=== PATIENT | male | born 1935 | race Caucasian/White ===

== ENCOUNTER → 2018-02-24 | Outpatient (CLI) | payer MEDICARE, BC ==
[2018-02-24 17:13] LABS: LDL Cholesterol,Calculated 50.4 mg/dL (0.0-131.0); VLDL Calculation 24.6 mg/dL (5.00-40.00)
== END | disposition home or self-care (01) ==
LOC: LABWHC1 09:20
PROVIDERS: ATTEND Thoracic Surgery (Cardiothoracic Vascular Surgery)
DX: I25.10 Atherosclerotic heart disease of native coronary artery without angina pectoris (principal)
CPT/HCPCS: 36415; 80061

== ENCOUNTER → 2018-09-30 | Outpatient (CLI) | payer MEDICARE, BC ==
[2018-09-30 16:04] LABS: Calcium 9.9 mg/dL (8.4-10.2); Potassium 4.7 mmol/L (3.5-5.1)
[2018-09-30 16:10] LABS: Basophils # (A) 0.1 k/uL (0-0.2); Basophils % (A) 1 %; Eosinophils # (A) 0.3 k/uL (0-0.7); Eosinophils % (A) 3 %; HCT 46.9 % (39.0-53.0); HGB 15.1 gm/dL (13.0-17.5); Lymphocytes # (A) 4.3 k/uL (1.0-4.8); Lymphocytes % (A) 44 %; MCH 31.2 pg (25.0-35.0); MCHC 32.1 g/dL (31.0-37.0); MCV 97.3 fL (80.0-100.0); Mean Platelet Volume 7.1; Monocytes # (A) 0.6 k/uL (0-1.0); Monocytes % (A) 6 %; Neutrophils # (A) 4.2 k/uL (1.3-7.7); Neutrophils % (A) 43 %; Platelet Count 316 k/uL (150-450); RBC 4.82 m/uL (4.30-5.90); RDW 14.1 % (11.5-15.5); WBC 9.7 k/uL (3.8-10.6)
== END | disposition home or self-care (01) ==
LOC: LABPAT 15:07
PROVIDERS: ATTEND Anesthesiology
DX: Z01.818 Encounter for other preprocedural examination (principal); Z01.812 Encounter for preprocedural laboratory examination
CPT/HCPCS: 80048; 85025; 93005

== ENCOUNTER → 2019-07-13 | Outpatient (CLI) | payer MEDICARE, BC ==
[2019-07-13 17:43] LABS: Chol/HDL Ratio 2.9; LDL Cholesterol,Calculated 37.4 mg/dL (0.0-131.0); VLDL Calculation 21.6 mg/dL (5.00-40.00)
== END | disposition home or self-care (01) ==
LOC: LABWHC1 09:58
PROVIDERS: ATTEND Internal Medicine Cardiovascular Disease
DX: E78.2 Mixed hyperlipidemia (principal)
CPT/HCPCS: 36415; 80061; 84450; 84460

== ENCOUNTER → 2020-11-05 | Outpatient (CLI) | payer MEDICARE, BC | END | disposition home or self-care (01) | LOC: LABWHC1 14:44 | PROVIDERS: ATTEND Internal Medicine | DX: Z20.822 Contact with and (suspected) exposure to COVID-19 (principal); R09.89 Other specified symptoms and signs involving the circulatory and respiratory systems | CPT/HCPCS: U0003; C9803; U0005 ==

== ENCOUNTER → 2021-05-19 | Outpatient (CLI) | payer MEDICARE, BC ==
--- NOTE | 2021-05-20 07:32 | US ---
EXAMINATION TYPE: US carotid duplex BILAT DATE OF EXAM: 05/19/2021 COMPARISON: NONE CLINICAL HISTORY: I65.23 HARDY CAROTID ARTERY STENOSIS,[id number]. EXAM MEASUREMENTS: RIGHT: Peak Systolic Velocity (PSV) cm/sec ----- Right CCA: 71.1 ----- Right ICA: 52.8 ----- Right ECA: 129. ICA/CCA ratio: 0.73 RIGHT: End Diastole cm/sec ----- Right CCA: 6.8 ----- Right ICA: 12.9 ----- Right ECA: 6.7 LEFT: Peak Systolic Velocity (PSV) cm/sec ----- Left CCA: 63.4 ----- Left ICA: 213 ----- Left ECA: 147 ICA/CCA ratio: 3.38 LEFT: End Diastole cm/sec ----- Left CCA: 9.1 ----- Left ICA: 62.7 ----- Left ECA: 10.7 VERTEBRALS (direction of flow): Right Vertebral: Antegrade Left Vertebral: Rhythm: Normal Patient has sinewy neck with calcified vessels at bulb, technically difficult. Mild velocity increases seen on left, right shows no significant velocity increases. IMPRESSION: 1. Atheromatous plaquing present. 2. Mild stenosis between 50 and 69% left internal carotid artery. Correlate with the patient's sympto ms. Criteria for Assigning % of Stenosis / Diameter reduction (Estimation based on the indirect measurements of the internal carotid artery velocities (ICA PSV). 1. Normal (no stenosis)=ICA PSV < 125 cm/s: ratio < 2.0: ICA EDV<40 cm/s. 2. Less than 50% stenosis=ICA PSV < 125 cm/s: ratio < 2.0: ICA EDV<40 cm/s. 3. 50 to 69% stenosis=ICA PSV of 125 to 230 cm/s: ration 2.0 ? 4.0: ICA EDV 40-100 cm/s. 4. Greater than 70% stenosis to near occlusion= ICA PSV > 230 cm/s: ratio > 4.0: ICA EDV > 100 cm/s. 5. Near occlusion= ICA PSV velocities may be low or undetectable: variable ratio and ICA EDV. 6. Total occlusion=unable to detect flow.
== END | disposition home or self-care (01) ==
LOC: RADUSWWP 15:27
PROVIDERS: ATTEND Internal Medicine Cardiovascular Disease
DX: I65.22 Occlusion and stenosis of left carotid artery (principal); Z98.890 Other specified postprocedural states
CPT/HCPCS: 93880

== ENCOUNTER → 2021-06-04 | Outpatient (CLI) | payer MEDICARE, BC ==
--- NOTE | 2021-06-04 18:07 | XR ---
EXAMINATION TYPE: XR shoulder complete RT DATE OF EXAM: 06/04/2021 COMPARISON: None available INDICATION: Right shoulder pain TECHNIQUE: 2 views of the right shoulder FINDINGS: Mild degenerative changes of the acromioclavicular joint. Severe degenerative changes of the glenohum eral articulation with large osteophytosis and narrowing of the joint space. No definite acute fracture line identified. No humeral head dislocation. No signs of rotator cuff stephen cific tendinitis. Maintained acromiohumeral distance. 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
== END | disposition home or self-care (01) ==
LOC: RADXRMAIN 13:57
PROVIDERS: ATTEND Internal Medicine
DX: M19.011 Primary osteoarthritis, right shoulder (principal)

== ENCOUNTER 2021-10-26 22:47 | Inpatient (IN) | payer MEDICARE, BC ==
--- NOTE | 2021-10-26 23:28 | ED ---
Weakness HPI - General Stated complaint: Fever, weakness Time Seen by Provider: 10/26/21 23:27 - History of Present Illness Initial comments: The patient is an 86-year-old male with past history of A. fib, congestive heart failure, hyperlipidemia, hypertension presents emergency room with fever and weakness. His facility sent him and to rule out COVID-19. States that it has been running rampant in his facility. They did swab him however it was nega tive. Patient does not provide much history. States that he is in no pain and does not want to be at the hospital. Because of this the remainder of the HPI is limited - Related Data Home Medications Medication Instructions Recorded Confirmed Apixaban [Eliquis] 5 mg PO BID@0800,199910/27/21 10/27/21 Atorvastatin [Lipitor] 40 mg PO HS@199910/27/21 10/27/21 Digoxin [Lanoxin] 125 mcg PO DAILY@79910/27/21 10/27/21 Famotidine [Pepcid] 20 mg PO HS@199910/27/21 10/27/21 Furosemide [Lasix] 40 mg PO DAILY@79910/27/21 10/27/21 Metoprolol Tartrate [Lopressor] 50 mg PO BID@0800,199910/27/21 10/27/21 Omeprazole 20 mg PO DAILY@79910/27/21 10/27/21 Potassium Chloride ER [K-Dur 20] 20 meq PO DAILY@0800 10/27/21 10/27/21 Sacubitril/Valsartan [Entresto 24 1 tab PO BID@08,199910/27/21 10/27/21 mg-26 mg Tablet] Allergies Allergy/AdvReac Type Severity Reaction Status Date / Time No Known Allergies Allergy Verified 10/27/21 09:49 Review of Systems ROS Statement: Those systems with pertinent positive or pertinent negative responses have been documented in the HPI. ROS Other: All systems not noted in ROS Statement are negative. Past Medical History - Past Family History Family Family Medical History: Coronary Artery Disease (CAD) General Exam General appearance: alert, in no apparent distress Head exam: Present: atraumatic, normocephalic, normal inspection Eye exam: Present: normal appearance, PERRL, EOMI. Absent: scleral icterus, conjunctival injection, periorbital swelling ENT exam: Present: normal exam, mucous membranes moist Neck exam: Present: normal inspection. Absent: tenderness, meningismus, lymphadenopathy Respiratory exam: Present: normal lung sounds bilaterally. Absent: respiratory distress, wheezes, rales, rhonchi, stridor Cardiovascular Exam: Present: normal rhythm, bradycardia, normal heart sounds. Absent: systolic murmur, diastolic murmur, rubs, gallop, clicks GI/Abdominal exam: Present: soft, normal bowel sounds. Absent: distended, tenderness, guarding, rebound, rigid Extremities exam: Present: normal inspection, full ROM, normal capillary refill. Absent: tenderness, pedal edema, joint swelling, calf tenderness Back exam: Present: normal inspection Neurological exam: Present: alert, oriented X3, CN II-XII intact Psychiatric exam: Present: normal affect, normal mood Skin exam: Present: warm, dry, intact, normal color. Absent: rash Course Vital Signs 10/26/21 10/27/21 10/27/21 22:48 01:00 02:00 Temperature 100.6 F H 97.9 F Pulse Rate 56 L 56 L 57 L Respiratory 20 20 18 Rate Blood Pressure 111/76 111/79 105/61 O2 Sat by Pulse 93 L 94 L 93 L Oximetry 10/27/21 10/27/21 10/27/21 03:00 06:00 09:00 Temperature 98.4 F Pulse Rate 54 L 44 L 55 L Respiratory 16 18 18 Rate Blood Pressure 104/58 118/71 132/71 O2 Sat by Pulse 98 95 92 L Oximetry 10/27/21 10/27/21 13:00 14:00 Temperature Pulse Rate 61 Respiratory 18 18 Rate Blood Pressure 137/89 O2 Sat by Pulse 95 Oximetry EKG Findings - EKG Comments: EKG Findings:: EKG demonstrates A. fib with a rate of 55. QRS 88. QTC of 396. No acute ST segment elevations or depressions Medical Decision Making - Medical Decision Making Upon arrival patient is placed into room 18. A thorough history and physical exam was performed. IV access was established laboratory studies are conducted. Patient is in A. fib however he does have history of this. He was given Ty lenol prior to leaving his facility. Laboratory studies are reviewed and demonstrated a troponin of 0.094. Recommended admission in order to trend his troponins. Spoke with patient's family was agreeable - Lab Data Result diagrams: 10/28/21 09:11 10/28/21 09:11 Lab Results 10/26/21 10/26/21 10/26/21 Range/Units 23:17 23:17 23:17 WBC 7.3 (3.8-10.6) k/uL RBC 4.20 L (4.30-5.90) m/uL Hgb 13.2 (13.0-17.5) gm/dL Hct 40.8 (39.0-53.0) % MCV 97.0 (80.0-100.0) fL MCH 31.4 (25.0-35.0) pg MCHC 32.4 (31.0-37.0) g/dL RDW 12.9 (11.5-15.5) % Plt Count 196 (150-450) k/uL MPV 8.4 Neutrophils % 70 % Lymphocytes % 14 % Monocytes % 13 % Eosinophils % 0 % Basophils % 1 % Neutrophils # 5.1 (1.3-7.7) k/uL Lymphocytes # 1.1 (1.0-4.8) k/uL Monocytes # 0.9 (0-1.0) k/uL Eosinophils # 0.0 (0-0.7) k/uL Basophils # 0.1 (0-0.2) k/uL PT 12.2 H (9.0-12.0) sec INR 1.1 (<1.2) APTT 32.5 H (22.0-30.0) sec Fibrinogen (200-500) mg/dL D-Dimer (<0.60) mg/L FEU Sodium 137 (137-145) mmol/L Potassium 4.3 (3.5-5.1) mmol/L Chloride 104 (98-107) mmol/L Carbon Dioxide 21 L (22-30) mmol/L Anion Gap 12 mmol/L BUN 17 (9-20) mg/dL Creatinine 0.97 (0.66-1.25) mg/dL Est GFR (CKD-EPI)AfAm 82 (>60 ml/min/1.73 sqM) Est GFR (CKD-EPI)NonAf 71 (>60 ml/min/1.73 sqM) Glucose 100 H (74-99) mg/dL Plasma Lactic Acid Matty (0.7-2.0) mmol/L Calcium 8.9 (8.4-10.2) mg/dL Magnesium (1.6-2.3) mg/dL Ferritin (22.0-322.0) ng/mL Total Bilirubin 0.8 (0.2-1.3) mg/dL AST 42 (17-59) U/L ALT 35 (4-49) U/L Alkaline Phosphatase 89 (38-126) U/L Lactate Dehydrogenase (313-618) U/L Troponin I (0.000-0.034) ng/mL C-Reactive Protein (<1.0) mg/dL NT-Pro-B Natriuret Pep pg/mL Total Protein 6.4 (6.3-8.2) g/dL Albumin 4.0 (3.5-5.0) g/dL Procalcitonin (0.02-0.09) ng/mL Urine Color Urine Appearance (Clear) Urine pH (5.0-8.0) Ur Specific [place] (1.001-1.035) Urine Protein (Negative) Urine Glucose (UA) (Negative) Urine Ketones (Negative) Urine Blood (Negative) Urine Nitrite (Negative) Urine Bilirubin (Negative) Urine Urobilinogen (<2.0) mg/dL Ur Leukocyte Esterase (Negative) Digoxin ng/mL Coronavirus (PCR) (Not Detectd) Influenza Type A RNA (Not Detectd) Influenza Type B (PCR) (Not Detectd) RSV (PCR) (Negative) 10/26/21 10/26/21 10/26/21 Range/Units 23:17 23:17 23:17 WBC (3.8-10.6) k/uL RBC (4.30-5.90) m/uL Hgb (13.0-17.5) gm/dL Hct (39.0-53.0) % MCV (80.0-100.0) fL MCH (25.0-35.0) pg MCHC (31.0-37.0) g/dL RDW (11.5-15.5) % Plt Count (150-450) k/uL MPV Neutrophils % % Lymphocytes % % Monocytes % % Eosinophils % % Basophils % % Neutrophils # (1.3-7.7) k/uL Lymphocytes # (1.0-4.8) k/uL Monocytes # (0-1.0) k/uL Eosinophils # (0-0.7) k/uL Basophils # (0-0.2) k/uL PT (9.0-12.0) sec INR (<1.2) APTT (22.0-30.0) sec Fibrinogen (200-500) mg/dL D-Dimer (<0.60) mg/L FEU Sodium (137-145) mmol/L Potassium (3.5-5.1) mmol/L Chloride (98-107) mmol/L Carbon Dioxide (22-30) mmol/L Anion Gap mmol/L BUN (9-20) mg/dL Creatinine (0.66-1.25) mg/dL Est GFR (CKD-EPI)AfAm (>60 ml/min/1.73 sqM) Est GFR (CKD-EPI)NonAf (>60 ml/min/1.73 sqM) Glucose (74-99) mg/dL Plasma Lactic Acid Matty 1.2 (0.7-2.0) mmol/L Calcium (8.4-10.2) mg/dL Magnesium (1.6-2.3) mg/dL Ferritin (22.0-322.0) ng/mL Total Bilirubin (0.2-1.3) mg/dL AST (17-59) U/L ALT (4-49) U/L Alkaline Phosphatase (38-126) U/L Lactate Dehydrogenase (313-618) U/L Troponin I 0.094 H* (0.000-0.034) ng/mL C-Reactive Protein (<1.0) mg/dL NT-Pro-B Natriuret Pep pg/mL Total Protein (6.3-8.2) g/dL Albumin (3.5-5.0) g/dL Procalcitonin (0.02-0.09) ng/mL Urine Color Urine Appearance (Clear) Urine pH (5.0-8.0) Ur Specific [place] (1.001-1.035) Urine Protein (Negative) Urine Glucose (UA) (Negative) Urine Ketones (Negative) Urine Blood (Negative) Urine Nitrite (Negative) Urine Bilirubin (Negative) Urine Urobilinogen (<2.0) mg/dL Ur Leukocyte Esterase (Negative) Digoxin 0.8 ng/mL Coronavirus (PCR) (Not Detectd) Influenza Type A RNA (Not Detectd) Influenza Type B (PCR) (Not Detectd) RSV (PCR) (Negative) 10/26/21 10/26/21 10/27/21 Range/Units 23:17 23:43 03:07 WBC (3.8-10.6) k/uL RBC (4.30-5.90) m/uL Hgb (13.0-17.5) gm/dL Hct (39.0-53.0) % MCV (80.0-100.0) fL MCH (25.0-35.0) pg MCHC (31.0-37.0) g/dL RDW (11.5-15.5) % Plt Count (150-450) k/uL MPV Neutrophils % % Lymphocytes % % Monocytes % % Eosinophils % % Basophils % % Neutrophils # (1.3-7.7) k/uL Lymphocytes # (1.0-4.8) k/uL Monocytes # (0-1.0) k/uL Eosinophils # (0-0.7) k/uL Basophils # (0-0.2) k/uL PT (9.0-12.0) sec INR (<1.2) APTT (22.0-30.0) sec Fibrinogen (200-500) mg/dL D-Dimer (<0.60) mg/L FEU Sodium (137-145) mmol/L Potassium (3.5-5.1) mmol/L Chloride (98-107) mmol/L Carbon Dioxide (22-30) mmol/L Anion Gap mmol/L BUN (9-20) mg/dL Creatinine (0.66-1.25) mg/dL Est GFR (CKD-EPI)AfAm (>60 ml/min/1.73 sqM) Est GFR (CKD-EPI)NonAf (>60 ml/min/1.73 sqM) Glucose (74-99) mg/dL Plasma Lactic Acid Matty (0.7-2.0) mmol/L Calcium (8.4-10.2) mg/dL Magnesium (1.6-2.3) mg/dL Ferritin (22.0-322.0) ng/mL Total Bilirubin (0.2-1.3) mg/dL AST (17-59) U/L ALT (4-49) U/L Alkaline Phosphatase (38-126) U/L Lactate Dehydrogenase (313-618) U/L Troponin I 0.115 H* (0.000-0.034) ng/mL C-Reactive Protein (<1.0) mg/dL NT-Pro-B Natriuret Pep 2350 pg/mL Total Protein (6.3-8.2) g/dL Albumin (3.5-5.0) g/dL Procalcitonin (0.02-0.09) ng/mL Urine Color Urine Appearance (Clear) Urine pH (5.0-8.0) Ur Specific [place] (1.001-1.035) Urine Protein (Negative) Urine Glucose (UA) (Negative) Urine Ketones (Negative) Urine Blood (Negative) Urine Nitrite (Negative) Urine Bilirubin (Negative) Urine Urobilinogen (<2.0) mg/dL Ur Leukocyte Esterase (Negative) Digoxin ng/mL Coronavirus (PCR) Detected A (Not Detectd) Influenza Type A RNA (Not Detectd) Influenza Type B (PCR) (Not Detectd) RSV (PCR) (Negative) 10/27/21 10/27/21 10/27/21 Range/Units 04:40 04:40 04:40 WBC (3.8-10.6) k/uL RBC (4.30-5.90) m/uL Hgb (13.0-17.5) gm/dL Hct (39.0-53.0) % MCV (80.0-100.0) fL MCH (25.0-35.0) pg MCHC (31.0-37.0) g/dL RDW (11.5-15.5) % Plt Count (150-450) k/uL MPV Neutrophils % % Lymphocytes % % Monocytes % % Eosinophils % % Basophils % % Neutrophils # (1.3-7.7) k/uL Lymphocytes # (1.0-4.8) k/uL Monocytes # (0-1.0) k/uL Eosinophils # (0-0.7) k/uL Basophils # (0-0.2) k/uL PT (9.0-12.0) sec INR (<1.2) APTT (22.0-30.0) sec Fibrinogen 389 (200-500) mg/dL D-Dimer 1.18 H (<0.60) mg/L FEU Sodium (137-145) mmol/L Potassium (3.5-5.1) mmol/L Chloride (98-107) mmol/L Carbon Dioxide (22-30) mmol/L Anion Gap mmol/L BUN (9-20) mg/dL Creatinine (0.66-1.25) mg/dL Est GFR (CKD-EPI)AfAm (>60 ml/min/1.73 sqM) Est GFR (CKD-EPI)NonAf (>60 ml/min/1.73 sqM) Glucose (74-99) mg/dL Plasma Lactic Acid Matty (0.7-2.0) mmol/L Calcium (8.4-10.2) mg/dL Magnesium 2.1 (1.6-2.3) mg/dL Ferritin 541.0 H (22.0-322.0) ng/mL Total Bilirubin (0.2-1.3) mg/dL AST (17-59) U/L ALT (4-49) U/L Alkaline Phosphatase (38-126) U/L Lactate Dehydrogenase 535 (313-618) U/L Troponin I (0.000-0.034) ng/mL C-Reactive Protein 2.0 H (<1.0) mg/dL NT-Pro-B Natriuret Pep 2260 pg/mL Total Protein (6.3-8.2) g/dL Albumin (3.5-5.0) g/dL Procalcitonin (0.02-0.09) ng/mL Urine Color Urine Appearance (Clear) Urine pH (5.0-8.0) Ur Specific [place] (1.001-1.035) Urine Protein (Negative) Urine Glucose (UA) (Negative) Urine Ketones (Negative) Urine Blood (Negative) Urine Nitrite (Negative) Urine Bilirubin (Negative) Urine Urobilinogen (<2.0) mg/dL Ur Leukocyte Esterase (Negative) Digoxin ng/mL Coronavirus (PCR) (Not Detectd) Influenza Type A RNA (Not Detectd) Influenza Type B (PCR) (Not Detectd) RSV (PCR) (Negative) 10/27/21 10/27/21 10/27/21 Range/Units 04:40 09:15 09:15 WBC (3.8-10.6) k/uL RBC (4.30-5.90) m/uL Hgb (13.0-17.5) gm/dL Hct (39.0-53.0) % MCV (80.0-100.0) fL MCH (25.0-35.0) pg MCHC (31.0-37.0) g/dL RDW (11.5-15.5) % Plt Count (150-450) k/uL MPV Neutrophils % % Lymphocytes % % Monocytes % % Eosinophils % % Basophils % % Neutrophils # (1.3-7.7) k/uL Lymphocytes # (1.0-4.8) k/uL Monocytes # (0-1.0) k/uL Eosinophils # (0-0.7) k/uL Basophils # (0-0.2) k/uL PT (9.0-12.0) sec INR (<1.2) APTT (22.0-30.0) sec Fibrinogen (200-500) mg/dL D-Dimer (<0.60) mg/L FEU Sodium (137-145) mmol/L Potassium (3.5-5.1) mmol/L Chloride (98-107) mmol/L Carbon Dioxide (22-30) mmol/L Anion Gap mmol/L BUN (9-20) mg/dL Creatinine (0.66-1.25) mg/dL Est GFR (CKD-EPI)AfAm (>60 ml/min/1.73 sqM) Est GFR (CKD-EPI)NonAf (>60 ml/min/1.73 sqM) Glucose (74-99) mg/dL Plasma Lactic Acid Matty (0.7-2.0) mmol/L Calcium (8.4-10.2) mg/dL Magnesium (1.6-2.3) mg/dL Ferritin (22.0-322.0) ng/mL Total Bilirubin (0.2-1.3) mg/dL AST (17-59) U/L ALT (4-49) U/L Alkaline Phosphatase (38-126) U/L Lactate Dehydrogenase (313-618) U/L Troponin I (0.000-0.034) ng/mL C-Reactive Protein (<1.0) mg/dL NT-Pro-B Natriuret Pep pg/mL Total Protein (6.3-8.2) g/dL Albumin (3.5-5.0) g/dL Procalcitonin 0.05 (0.02-0.09) ng/mL Urine Color Yellow Urine Appearance Clear (Clear) Urine pH 5.5 (5.0-8.0) Ur Specific [place] 1.026 (1.001-1.035) Urine Protein Trace H (Negative) Urine Glucose (UA) Negative (Negative) Urine Ketones Trace H (Negative) Urine Blood Negative (Negative) Urine Nitrite Negative (Negative) Urine Bilirubin Negative (Negative) Urine Urobilinogen <2.0 (<2.0) mg/dL Ur Leukocyte Esterase Negative (Negative) Digoxin ng/mL Coronavirus (PCR) (Not Detectd) Influenza Type A RNA Not Detected (Not Detectd) Influenza Type B (PCR) Not Detected (Not Detectd) RSV (PCR) Negative (Negative) 10/27/21 10/28/21 10/28/21 Range/Units 09:26 09:11 09:11 WBC 7.7 (3.8-10.6) k/uL RBC 4.61 (4.30-5.90) m/uL Hgb 14.6 (13.0-17.5) gm/dL Hct 45.4 (39.0-53.0) % MCV 98.5 (80.0-100.0) fL MCH 31.7 (25.0-35.0) pg MCHC 32.2 (31.0-37.0) g/dL RDW 13.0 (11.5-15.5) % Plt Count 198 (150-450) k/uL MPV 8.5 Neutrophils % 68 % Lymphocytes % 24 % Monocytes % 6 % Eosinophils % 0 % Basophils % 1 % Neutrophils # 5.2 (1.3-7.7) k/uL Lymphocytes # 1.8 (1.0-4.8) k/uL Monocytes # 0.5 (0-1.0) k/uL Eosinophils # 0.0 (0-0.7) k/uL Basophils # 0.0 (0-0.2) k/uL PT (9.0-12.0) sec INR (<1.2) APTT (22.0-30.0) sec Fibrinogen (200-500) mg/dL D-Dimer (<0.60) mg/L FEU Sodium 138 (137-145) mmol/L Potassium 3.7 (3.5-5.1) mmol/L Chloride 101 (98-107) mmol/L Carbon Dioxide 24 (22-30) mmol/L Anion Gap 13 mmol/L BUN 12 (9-20) mg/dL Creatinine 0.74 (0.66-1.25) mg/dL Est GFR (CKD-EPI)AfAm >90 (>60 ml/min/1.73 sqM) Est GFR (CKD-EPI)NonAf 83 (>60 ml/min/1.73 sqM) Glucose 105 H (74-99) mg/dL Plasma Lactic Acid Matty (0.7-2.0) mmol/L Calcium 8.7 (8.4-10.2) mg/dL Magnesium (1.6-2.3) mg/dL Ferritin (22.0-322.0) ng/mL Total Bilirubin (0.2-1.3) mg/dL AST (17-59) U/L ALT (4-49) U/L Alkaline Phosphatase (38-126) U/L Lactate Dehydrogenase (313-618) U/L Troponin I 0.085 H* (0.000-0.034) ng/mL C-Reactive Protein (<1.0) mg/dL NT-Pro-B Natriuret Pep pg/mL Total Protein (6.3-8.2) g/dL Albumin (3.5-5.0) g/dL Procalcitonin (0.02-0.09) ng/mL Urine Color Urine Appearance (Clear) Urine pH (5.0-8.0) Ur Specific [place] (1.001-1.035) Urine Protein (Negative) Urine Glucose (UA) (Negative) Urine Ketones (Negative) Urine Blood (Negative) Urine Nitrite (Negative) Urine Bilirubin (Negative) Urine Urobilinogen (<2.0) mg/dL Ur Leukocyte Esterase (Negative) Digoxin ng/mL Coronavirus (PCR) (Not Detectd) Influenza Type A RNA (Not Detectd) Influenza Type B (PCR) (Not Detectd) RSV (PCR) (Negative) Disposition Clinical Impression: NSTEMI (non-ST elevated myocardial infarction), Pyrexia Disposition: ADMITTED IP TO THIS HOSP Condition: Stable Is patient prescribed a controlled substance at d/c from ED?: No Time of Disposition: 02:00 Decision to Admit Reason: Admit from EC Decision Date: 10/27/21 Decision Time: 02:00
[2021-10-27 00:06] LABS: Basophils # (A) 0.1 k/uL (0-0.2); Basophils % (A) 1 %; Eosinophils % (A) 0 %; HCT 40.8 % (39.0-53.0); HGB 13.2 gm/dL (13.0-17.5); Lymphocytes # (A) 1.1 k/uL (1.0-4.8); Lymphocytes % (A) 14 %; MCH 31.4 pg (25.0-35.0); MCHC 32.4 g/dL (31.0-37.0); Mean Platelet Volume 8.4; Monocytes # (A) 0.9 k/uL (0-1.0); Monocytes % (A) 13 %; Neutrophils # (A) 5.1 k/uL (1.3-7.7); Neutrophils % (A) 70 %; Platelet Count 196 k/uL (150-450); RDW 12.9 % (11.5-15.5); WBC 7.3 k/uL (3.8-10.6)
[2021-10-27 00:16] LABS: INR 1.1 (<1.2); Partial Thromboplastin Time 32.5 sec (22.0-30.0); Prothrombin Time 12.2 sec (9.0-12.0)
[2021-10-27 00:58] LABS: Calcium 8.9 mg/dL (8.4-10.2); Potassium 4.3 mmol/L (3.5-5.1); Total Bilirubin 0.8 mg/dL (0.2-1.3); Total Protein 6.4 g/dL (6.3-8.2)
--- NOTE | 2021-10-27 01:00 | XR ---
EXAMINATION TYPE: XR chest 2V DATE OF EXAM: 10/27/2021 COMPARISON: NONE HISTORY: Weakness TECHNIQUE: 2 views FINDINGS: There is no heart failure nor confluent pneumonic infiltrate. There is slight coarsening of interstitial markings. There are sternal wires. Thoracic aorta is atheromatous. No pleural effusion. IMPRESSION: Minimal pulmonary fibrotic changes. No heart failure.
[2021-10-27] MEDS ORDERED: ASPIRIN 81 MG PO STA (01:51)
[2021-10-27] MEDS ORDERED: NALOXONE 0.4 MG/ML 1 ML VIAL IV PRN (02:01)
--- NOTE | 2021-10-27 04:28 | P.HPIM ---
History of Present Illness H&P Date: 10/27/21 Chief Complaint: fever 86 year old male with Afib not on blood thinners, shelter resident patient was sent in here for evaluation of generalized weakness, and fever. at the facility , there has been several reported cases of COVID patient provides limited history, as its hard to understand what he says, he reports some condition that happened to him resulted in difficulty in speech but denies stroke. he denies any falling, denies any chest pain or new focal neuro deficits , denies any SOB. he mainly reports, chills, and body aches and feeling generalized weakness along with sore throat. denies any diarrhea or urinary changes , denies any GI bleeding he has history of triple bypass and afib in the ED workup positive for COVID elevated trops denies smoking, illicit drugs or alcohol Review of Systems Pertinent positives as noted in HPI. All other systems were reviewed and are negative Past Medical History Past Medical History: Atrial Fibrillation, Heart Failure, GERD/Reflux, Hyperlipidemia, Hypertension History of Any Multi-Drug Resistant Organisms: None Reported Past Psychological History: No Psychological Hx Reported Past Alcohol Use History: None Reported Past Drug Use History: None Reported - Past Family History Family Family Medical History: Coronary Artery Disease (CAD) Medications and Allergies Allergies Allergy/AdvReac Type Severity Reaction Status Date / Time No Known Allergies Allergy Verified 10/27/21 01:33 Physical Exam Vitals: Vital Signs Temp Pulse Resp BP Pulse Ox 10/27/21 02:00 57 L 18 105/61 93 L 10/27/21 01:00 97.9 F 56 L 20 111/79 94 L 10/26/21 22:48 100.6 F H 56 L 20 111/76 93 L Intake and Output 10/26/21 10/26/21 10/27/21 14:59 22:59 06:59 Other: Weight 117.934 kg Constitutional: No acute distress, difficulty with speech , hard to understand cooperative Eyes: Anicteric sclerae, moist conjunctiva, Pupils equal round reactive to light ENMT: NC/AT Oropharynx clear, no erythema, or exudates Neck: Supple, no masses, or JVD No carotid bruits No thyromegaly Lungs: Clear to auscultation Clear to percussion Normal respiratory effort, no accessory muscle use Cardiovascular: Heart irregular in rate and rhythm, No murmurs, gallops, or rubs No peripheral edema Abdominal: Soft Nontender, no guarding, rebound or rigidity Abdomen moving with respiration Normoactive bowel sounds No hepatomegaly, No splenomegaly No palpable mass No abdominal wall hernia noted Skin: Normal temperature, tone, texture, turgor No induration No subcutaneous nodules No rash, lesions No ulcers Extremities: No digital cyanosis No clubbing Pedal pulses intact and symmetrical Radial pulses intact and symmetrical No calf tenderness Psychiatric: Alert and oriented to person, place and time Appropriate affect fair judgement Neuro Muscles Strength 4-5/5 in all 4 extremities Sensation to light touch grossly present throughout Cranial nerves II-XII grossly intact No focal sensory deficits Lymphatics: no palpable cervical or supraclavicular , or inguinal lymph nodes Results CBC & Chem 7: 10/26/21 23:17 10/26/21 23:17 Labs: Abnormal Lab Results - Last 24 Hours (Table) 10/26/21 10/26/21 10/26/21 Range/Units 23:17 23:17 23:17 RBC 4.20 L (4.30-5.90) m/uL PT 12.2 H (9.0-12.0) sec APTT 32.5 H (22.0-30.0) sec Carbon Dioxide 21 L (22-30) mmol/L Glucose 100 H (74-99) mg/dL Troponin I (0.000-0.034) ng/mL Coronavirus (PCR) (Not Detectd) 10/26/21 10/26/21 Range/Units 23:17 23:43 RBC (4.30-5.90) m/uL PT (9.0-12.0) sec APTT (22.0-30.0) sec Carbon Dioxide (22-30) mmol/L Glucose (74-99) mg/dL Troponin I 0.094 H* (0.000-0.034) ng/mL Coronavirus (PCR) Detected A (Not Detectd) Assessment and Plan Assessment: covid viral infection check prognostic labs, LDH, CRP, ferritin , fibrinogen , Procalcitonin , trops trops elevation possibly related to COVID , no reported chest pain , continue to trend supportive care not requiring supplemental oxygen at this time DVT PPX lovenox monitor vital signs droplet precautions check other acute respiratory viral panel fall precaution s chronic condition s chronic afib on digoxin , not on 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
[2021-10-27 05:25] LABS: Magnesium 2.1 mg/dL (1.6-2.3)
[2021-10-27] MEDS: ALBUTEROL HFA INHALER INHALATION PRN (08:19)
[2021-10-27] MEDS ORDERED: ENOXAPARIN 40 MG/0.4 ML SYRINGE SQ SCH (09:00)
[2021-10-27] MEDS: SODIUM CHLORIDE 0.9% 1,000 ML IV SCH ×3 (09:30→23:40)
--- NOTE | 2021-10-27 11:04 | P.CRDCN ---
History of Present Illness Consult date: 10/27/21 Reason for Consult (text): elevated troponin History of present illness: The patient is a 86-year-old male who presented to the emergency room with fever and chills. The patient has been feeling unwell for the last several days. He is found to be COVID-19 positive. He denied any associated chest pains or chest pressure. No significant for significant shortness of breath. Positive for muscle aches and pains. DIAGNOSTICS: EKG shows atrial fibrillation in the 50s Chest x-ray shows minimal pulmonary fibrotic changes Lab data: WBC 7.3, hemoglobin 13.2, hematocrit 40.8, platelet 196, d-dimer 1.18, sodium 137, potassium 4.3, BUN 17, creatinine 0.97, magnesium 2.1, AST 42, ALT 35, CRP 2.0, BNP 2350, troponin 0.09, 0.11, 0.08 PAST MEDICAL HISTORY: Unknown, chart not updated REVIEW OF SYSTEMS: No fever or chills. No cough or expectoration. No diaphoresis. Patient denies headache, dizziness, blurred vision, double vision. Patient denies any stomach discomfort. No nausea, vomiting. No hematochezia. No hematemesis. Denies any black stools or blood in his stools. Denies dysuria or hematuria. PHYSICAL EXAMINATION: Limited to COVID-19 infection. FINAL ASSESSMENT AND PLAN: Elevated troponins, unclear significant, start low-dose aspirin Acute COVID-19 infection Persistent atrial fibrillation, bradycardic History of cardiomyopathy, unknown etiology, on entresto at home History of hypertension History of dyslipidemia PLAN: Discontinue digoxin as he is bradycardic When heart rate improves, resume metoprolol Continue supportive treatment for active infection Further recommendations at this clinic course I am dictating on behalf of Dr Jovan Valdes's history/physical and assessment/plan. Past Medical History Past Medical History: Atrial Fibrillation, Heart Failure, GERD/Reflux, H yperlipidemia, Hypertension History of Any Multi-Drug Resistant Organisms: None Reported Past Psychological History: No Psychological Hx Reported Past Alcohol Use History: None Reported Past Drug Use History: None Reported - Past Family History Family Family Medical History: Coronary Artery Disease (CAD) Medications and Allergies Home Medications Medication Instructions Recorded Confirmed Type Apixaban [Eliquis] 5 mg PO BID@0800,199910/27/21 10/27/21 History Atorvastatin [Lipitor] 40 mg PO HS@199910/27/21 10/27/21 History Digoxin [Lanoxin] 125 mcg PO DAILY@79910/27/21 10/27/21 History Famotidine [Pepcid] 20 mg PO HS@199910/27/21 10/27/21 History Furosemide [Lasix] 40 mg PO DAILY@79910/27/21 10/27/21 History Metoprolol Tartrate [Lopressor] 50 mg PO BID@799,199910/27/21 10/27/21 History Omeprazole 20 mg PO DAILY@79910/27/21 10/27/21 History Potassium Chloride ER [K-Dur 20] 20 meq PO DAILY@79910/27/21 10/27/21 History Sacubitril/Valsartan [Entresto 24 1 tab PO BID@799,199910/27/21 10/27/21 History mg-26 mg Tablet] Allergies Allergy/AdvReac Type Severity Reaction Status Date / Time No Known Allergies Allergy Verified 10/27/21 09:49 Physical Exam Vitals: Vital Signs Temp Pulse Resp BP Pulse Ox 10/27/21 09:00 98.4 F 55 L 18 132/71 92 L 10/27/21 06:00 44 L 18 118/71 95 10/27/21 03:00 54 L 16 104/58 98 10/27/21 02:00 57 L 18 105/61 93 L 10/27/21 01:00 97.9 F 56 L 20 111/79 94 L 10/26/21 22:48 100.6 F H 56 L 20 111/76 93 L Intake and Output 10/26/21 10/27/21 10/27/21 22:59 06:59 14:59 Intake Total 60 Balance 60 Intake: Oral 60 Other: Weight 117.934 kg Results 10/26/21 23:17 10/26/21 23:17 Cardiac Enzymes 10/26/21 10/26/21 10/27/21 Range/Units 23:17 23:17 03:07 AST 42 (17-59) U/L Lactate Dehydrogenase (313-618) U/L Troponin I 0.094 H* 0.115 H* (0.000-0.034) ng/mL 10/27/21 10/27/21 Range/Units 04:40 09:26 AST (17-59) U/L Lactate Dehydrogenase 535 (313-618) U/L Troponin I 0.085 H* (0.000-0.034) ng/mL Coagulation 10/26/21 Range/Units 23:17 PT 12.2 H (9.0-12.0) sec APTT 32.5 H (22.0-30.0) sec CBC 10/26/21 Range/Units 23:17 WBC 7.3 (3.8-10.6) k/uL RBC 4.20 L (4.30-5.90) m/uL Hgb 13.2 (13.0-17.5) gm/dL Hct 40.8 (39.0-53.0) % Plt Count 196 (150-450) k/uL Comprehensive Metabolic Panel 10/26/21 Range/Units 23:17 Sodium 137 (137-145) mmol/L Potassium 4.3 (3.5-5.1) mmol/L Chloride 104 (98-107) mmol/L Carbon Dioxide 21 L (22-30) mmol/L BUN 17 (9-20) mg/dL Creatinine 0.97 (0.66-1.25) mg/dL Glucose 100 H (74-99) mg/dL Calcium 8.9 (8.4-10.2) mg/dL AST 42 (17-59) U/L ALT 35 (4-49) U/L Alkaline Phosphatase 89 (38-126) U/L Total Protein 6.4 (6.3-8.2) g/dL Albumin 4.0 (3.5-5.0) g/dL Current Medications Generic Name Dose Route Start Last Admin Trade Name Freq PRN Reason Stop Dose Admin Acetaminophen 650 mg 10/27/21 04:16 Acetaminophen Tab 325 Mg Tab PO Q4HR PRN Fever>101 Albuterol Sulfate 2 puff 10/27/21 08:00 10/27/21 08:19 Albuterol Hfa Inhaler INHALATION 2 puff RT-Q6H PRN Administration Shortness Of Breath Or Wheezing Apixaban 5 mg 10/27/21 20:00 Apixaban 5 Mg Tab PO BID@0800,2000 [facility] Protocol Atorvastatin Calcium 40 mg 10/27/21 20:00 Atorvastatin 40 Mg Tab PO HS@1999 [facility] Digoxin 125 mcg 10/28/21 11:00 Digoxin 125 Mcg Tab PO DAILY@0800 [facility] Famotidine 20 mg 10/27/21 20:00 Famotidine 20 Mg Tab PO HS@2000 [facility] Furosemide 40 mg 10/28/21 08:00 Furosemide 40 Mg Tab PO DAILY@0800 [facility] Sodium Chloride 1,000 mls @ 50 mls/hr 10/26/21 23:45 10/27/21 09:30 Saline 0.9% IV 130 mls/hr .Q20H [facility] Administration Naloxone HCl 0.2 mg 10/27/21 02:01 Naloxone 0.4 Mg/Ml 1 Ml Vial IV Q2M PRN Opioid Reversal Pantoprazole Sodium 40 mg 10/28/21 08:00 Pantoprazole 40 Mg Tablet PO DAILY@0800 [facility] Potassium Chloride 20 meq 10/28/21 08:00 Potassium Chloride Er 20 Meq Tab.Er PO DAILY@0800 [facility] Intake and Output 10/26/21 10/27/21 10/27/21 22:59 06:59 14:59 Intake Total 60 Balance 60 Intake: Oral 60 Other: Weight 117.934 kg 10/26/21 23:17 10/26/21 23:17
[2021-10-27 13:01] LABS: Appearance,Urine Clear (Clear); Bilirubin,Urine Negative (Negative); Blood,Urine Negative (Negative); Color,Urine Yellow; Glucose,Urine (UA) Negative (Negative); Ketones,Urine Trace (Negative); Leukocyte Esterase,Urine Negative (Negative); Nitrite,Urine Negative (Negative); PH, Urine 5.5 (5.0-8.0); Protein,Urine Trace (Negative); Specific Gravity,Urine 1.026 (1.001-1.035); Urobilinogen,Urine <2.0 mg/dL (<2.0)
[2021-10-27] MEDS ORDERED: METOPROLOL TARTRATE 50 MG TAB PO SCH (20:00)
[2021-10-27] MEDS: ATORVASTATIN 40 MG TAB PO SCH (20:09)
[2021-10-27] MEDS: FAMOTIDINE 20 MG TAB PO SCH (20:09)
[2021-10-27] MEDS: APIXABAN 5 MG TAB PO SCH (20:09)
[2021-10-28] MEDS ORDERED: IBUPROFEN 400 MG TAB PO STA (02:39)
[2021-10-28] MEDS ORDERED: FUROSEMIDE 40 MG TAB PO SCH (08:00)
[2021-10-28] MEDS: ASPIRIN 81 MG PO SCH (08:17)
[2021-10-28] MEDS: APIXABAN 5 MG TAB PO SCH ×2 (08:17→20:26)
[2021-10-28] MEDS: PANTOPRAZOLE 40 MG TABLET PO SCH (08:17)
[2021-10-28] MEDS: POTASSIUM CHLORIDE ER 20 MEQ TAB.ER PO SCH (08:17)
[2021-10-28] MEDS: ACETAMINOPHEN TAB 325 MG TAB PO PRN (08:17)
[2021-10-28] MEDS ORDERED: METOPROLOL TARTRATE 25 MG TAB PO SCH (09:30)
[2021-10-28 09:31] LABS: Basophils % (A) 1 %; Eosinophils % (A) 0 %; HCT 45.4 % (39.0-53.0); HGB 14.6 gm/dL (13.0-17.5); Lymphocytes # (A) 1.8 k/uL (1.0-4.8); Lymphocytes % (A) 24 %; MCH 31.7 pg (25.0-35.0); MCHC 32.2 g/dL (31.0-37.0); MCV 98.5 fL (80.0-100.0); Mean Platelet Volume 8.5; Monocytes # (A) 0.5 k/uL (0-1.0); Monocytes % (A) 6 %; Neutrophils # (A) 5.2 k/uL (1.3-7.7); Neutrophils % (A) 68 %; Platelet Count 198 k/uL (150-450); RBC 4.61 m/uL (4.30-5.90); WBC 7.7 k/uL (3.8-10.6)
[2021-10-28 09:44] LABS: African American GFR (CKD) >90 (>60 ml/min/1.73 sqM); Anion Gap 13 mmol/L; Blood Urea Nitrogen 12 mg/dL (9-20); Calcium 8.7 mg/dL (8.4-10.2); Carbon Dioxide 24 mmol/L (22-30); Chloride 101 mmol/L (98-107); Glucose 105 mg/dL (74-99); Non-African American GFR(CKD) 83 (>60 ml/min/1.73 sqM); Potassium 3.7 mmol/L (3.5-5.1); Sodium 138 mmol/L (137-145)
[2021-10-28] MEDS: BENZOCAINE/MENTHOL LOZENG 1 EACH LOZENGE MUCOUS MEM PRN ×2 (09:58→20:37)
[2021-10-28] MEDS: IBUPROFEN 200 MG TAB PO PRN (09:58)
--- NOTE | 2021-10-28 09:58 | P.PN ---
Subjective Progress Note Date: 10/28/21 Patient still sounds congested today, complaining of shortness of breath at rest, denies fevers in the last 24 hours, none documented. Patient has elevated BNP, echo pending, troponin trended down. Gen: awake, alert HEENT: normocephalic, atraumatic, good hearing acuity, moist mucous membranes, bilateral crackles Resp: good air exchange, breathing comfortably with no accessory muscle use, irregular rhythm, no murmurs CVS: good distal perfusion x 4, GI: soft, NTTP, ND : no SPT, no CVAT, downs catheter not present MSK: no pitting edema, no clubbing Neuro: non-focal, moving all extremities Psych: cooperative, euthymic mood Assessment/plan: Acute on chronic heart failure exacerbation, suspected systolic, EF pending -Admit inpatient, telemetry -Cardiology consult -Strict ins and outs -Echocardiogram -Lasix IV -Repeat chest x-ray 10/28 Covid 19 -check prognostic labs, LDH, CRP, ferritin , fibrinogen , Procalcitonin , trops -droplet precautions Chronic afib -Stop digoxin per cardiology -Not on anticoagulation, presumably due to fall risk CAD Hypertension -Home medications reviewed and reconciled Full code DVT PPX lovenox sc Objective - Vital Signs Vital signs: Vital Signs Temp 98.5 F 10/28/21 08:15 Pulse 61 10/28/21 08:15 Resp 18 10/28/21 08:15 BP 159/73 10/28/21 08:15 Pulse Ox 93 L 10/28/21 08:47 FiO2 Intake & Output 10/27/21 10/28/21 10/28/21 18:59 06:59 18:59 Intake Total 700 Output Total 700 500 Balance 0 -500 Weight 117.934 kg Intake: Intake, IV Titration 400 Amount Sodium Chloride 0.9% 1, 400 000 ml @ 50 mls/hr IV . Q20H [facility] Rx#:[id number] Oral 300 Output: Urine 700 500 Straight 400 Other: # Voids 1 1 1 - Labs CBC & Chem 7: 10/28/21 09:11 10/28/21 09:11 Labs: Abnormal Lab Results - Last 24 Hours (Table) 10/27/21 10/27/21 10/27/21 Range/Units 04:40 09:15 09:26 Glucose (74-99) mg/dL Ferritin 541.0 H (22.0-322.0) ng/mL Troponin I 0.085 H* (0.000-0.034) ng/mL Urine Protein Trace H (Negative) Urine Ketones Trace H (Negative) 10/28/21 Range/Units 09:11 Glucose 105 H (74-99) mg/dL Ferritin (22.0-322.0) ng/mL Troponin I (0.000-0.034) ng/mL Urine Protein (Negative) Urine Ketones (Negative) Microbiology - Last 24 Hours (Table) 10/27/21 04:40 Blood Culture - Preliminary Blood No Growth after 24 hours
[2021-10-28] MEDS: FUROSEMIDE 10 MG/ML 4 ML VIAL IV SCH (10:08)
[2021-10-28] MEDS ORDERED: DIGOXIN 125 MCG TAB PO SCH (11:00)
--- NOTE | 2021-10-28 11:29 | P.PN ---
Subjective Progress Note Date: 10/28/21 CHIEF COMPLAINT: abnormal troponins HISTORY OF PRESENT ILLNESS: The patient is a 86-year-old male who presented to the emergency room with fever and chills. The patient has been feeling unwell for the last several days. He is found to be COVID-19 positive. He denied any associated chest pains or chest pressure. No significant for significant shortness of breath. Positive for muscle aches and pains. DIAGNOSTICS: EKG shows atrial fibrillation in the 50s Chest x-ray shows minimal pulmonary fibrotic changes Lab data: WBC 7.3, hemoglobin 13.2, hematocrit 40.8, platelet 196, d-dimer 1.18, sodium 137, potassium 4.3, BUN 17, creatinine 0.97, magnesium 2.1, AST 42, ALT 35, CRP 2.0, BNP 2350, troponin 0.09, 0.11, 0.08 10/28/2021 Patient remains hospitalized on 3S. He is Covid positive. Case discussed with patients nurse. According to patients nurse, the patient denies any chest pain or pressure. He denies SOB. He was started on IV lasix this morning per internal medicine. Telemetry reveals atrial fibrillation with a heart rate in the 80s. PHYSICAL EXAM: Thorough physical exam not completed secondary to limited evaluation/examination due to Covid19 ASSESSMENT: Acute COVID-19 infection Elevated troponins of unclear significance Persistent atrial fibrillation, bradycardic, since resolved History of cardiomyopathy, unknown etiology, on entresto at home History of hypertension History of dyslipidemia PLAN: 2-D echo ordered. Await results Continue to hold Digoxin Resume metoprolol at a lower dose of 25 mg twice a day (Patient was taking 50 BID at home) Continue telemetry monitoring Continue to monitor blood pressure. Will adjust medications accordingly. Further recommendations pending patient's course Nurse practitioner note has been reviewed by physician. Signing provider agrees with the documented findings, assessment, and plan of care. Objective - Vital Signs Vital signs: Vital Signs Temp 98.3 F 10/28/21 11:05 Pulse 81 10/28/21 11:05 Resp 20 10/28/21 11:06 BP 172/80 10/28/21 11:05 Pulse Ox 93 L 10/28/21 11:06 FiO2 Intake & Output 10/27/21 10/28/21 10/28/21 18:59 06:59 18:59 Intake Total 700 Output Total 700 500 Balance 0 -500 Weight 117.934 kg Intake: Intake, IV Titration 400 Amount Sodium Chloride 0.9% 1, 400 000 ml @ 50 mls/hr IV . Q20H [facility] Rx#:[id number] Oral 300 Output: Urine 700 500 Straight 400 Other: # Voids 1 1 1 - Labs CBC & Chem 7: 10/28/21 09:11 10/28/21 09:11 Labs: Abnormal Lab Results - Last 24 Hours (Table) 10/27/21 10/27/21 10/28/21 Range/Units 04:40 09:15 09:11 Glucose 105 H (74-99) mg/dL Ferritin 541.0 H (22.0-322.0) ng/mL Urine Protein Trace H (Negative) Urine Ketones Trace H (Negative) Microbiology - Last 24 Hours (Table) 10/27/21 04:40 Blood Culture - Preliminary Blood No Growth after 24 hours
--- NOTE | 2021-10-28 12:23 | XR ---
EXAMINATION TYPE: XR chest 1V portable DATE OF EXAM: 10/28/2021 COMPARISON: 10/27/2021 INDICATION: Elevated BNP, lung crackles, abnormal auscultation TECHNIQUE: Single frontal view of the chest is obtained. FINDINGS: The heart size is normal. The pulmonary vasculature is normal. Mild increased lung markings in the right upper lung field are present. Correlate for atelectasis or pneumonia Sternotomy wires are present from prior CABG. There is loss of the glenohumeral joint space on the ri ght. Some mild elevation of the humerus may be present. Rotator cuff tear cannot be excluded. IMPRESSION: 1. There may be some mild infiltrate in the right upper lung field. Clinical correlation recommended. Follow-up can be performed as clinically indicated
[2021-10-28] MEDS: ATORVASTATIN 40 MG TAB PO SCH (20:26)
[2021-10-28] MEDS: FAMOTIDINE 20 MG TAB PO SCH (20:26)
[2021-10-28] MEDS: SACUBITRIL/VALSARTAN 24 MG-26 MG TABLET PO SCH (20:26)
[2021-10-29] MEDS: BENZOCAINE/MENTHOL LOZENG 1 EACH LOZENGE MUCOUS MEM PRN ×3 (01:52→21:11)
[2021-10-29] MEDS: IBUPROFEN 200 MG TAB PO PRN (01:52)
[2021-10-29] MEDS: FUROSEMIDE 10 MG/ML 4 ML VIAL IV SCH (08:32)
[2021-10-29] MEDS: APIXABAN 5 MG TAB PO SCH ×2 (08:33→21:11)
[2021-10-29] MEDS: ASPIRIN 81 MG PO SCH (08:33)
[2021-10-29] MEDS: SACUBITRIL/VALSARTAN 24 MG-26 MG TABLET PO SCH (08:33)
[2021-10-29] MEDS: POTASSIUM CHLORIDE ER 20 MEQ TAB.ER PO SCH (08:33)
[2021-10-29] MEDS: PANTOPRAZOLE 40 MG TABLET PO SCH (08:33)
--- NOTE | 2021-10-29 10:00 | P.PN ---
Subjective Progress Note Date: 10/29/21 CHIEF COMPLAINT: abnormal troponins HISTORY OF PRESENT ILLNESS: The patient is a 86-year-old male who presented to the emergency room with fever and chills. The patient has been feeling unwell for the last several days. He is found to be COVID-19 positive. He denied any associated chest pains or chest pressure. No significant for significant shortness of breath. Positive for muscle aches and pains. DIAGNOSTICS: EKG shows atrial fibrillation in the 50s Chest x-ray shows minimal pulmonary fibrotic changes Lab data: WBC 7.3, hemoglobin 13.2, hematocrit 40.8, platelet 196, d-dimer 1.18, sodium 137, potassium 4.3, BUN 17, creatinine 0.97, magnesium 2.1, AST 42, ALT 35, CRP 2.0, BNP 2350, troponin 0.09, 0.11, 0.08 10/28/2021 Patient remains hospitalized on 3S. He is Covid positive. Case discussed with patients nurse. According to patients nurse, the patient denies any chest pain or pressure. He denies SOB. He was started on IV lasix this morning per internal medicine. Telemetry reveals atrial fibrillation with a heart rate in the 80s. 10/29/2021 Patient evaluated this morning. He denies chest pain or pressure. Denies SOB. Reports a cough and a lot of congestion in his throat. Telemetry reveals atrial fibrillation with a heart rate in the 70s. PHYSICAL EXAM: Thorough physical exam not completed secondary to limited evaluation/examination due to Covid19 ASSESSMENT: Acute COVID-19 infection Elevated troponins of unclear significance Persistent atrial fibrillation, bradycardic, since resolved History of cardiomyopathy, ischemic History of 3V CABG, 2020 History of hypertension History of dyslipidemia PLAN: 2-D echo ordered. Await results Continue to hold Digoxin and Metoprolol secondary to bradycardia Continue telemetry monitoring Patient to follow up outpatient with his primary emergency crew supervisor out of [facility] Further recommendations pending patient's course Nurse practitioner note has been reviewed by physician. Signing provider agrees with the documented findings, assessment, and plan of care. Objective - Vital Signs Vital signs: Vital Signs Temp 98.3 F 10/29/21 08:30 Pulse 84 10/29/21 08:30 Resp 20 10/29/21 08:30 BP 103/62 10/29/21 08:30 Pulse Ox 94 L 10/29/21 08:30 FiO2 Intake & Output 10/28/21 10/29/21 10/29/21 18:59 06:59 18:59 Output Total 1000 651 Balance -1000 -651 Output: Urine 1000 650 Stool 1 Other: Voiding Method Bedpan Bedpan Urinal Urinal Diaper Diaper # Voids 1 1 # Bowel Movements 1 - Labs CBC & Chem 7: 10/28/21 09:11 10/28/21 09:11 Labs: Microbiology - Last 24 Hours (Table) 10/27/21 04:40 Blood Culture - Preliminary Blood No Growth after 48 hours
--- NOTE | 2021-10-29 10:29 | CA ---
Transthoracic Echo Report Name: Abraham Diallo Age: 86 Gender: M : 1935 Exam Date: 10/28/2021 13:59 Exam Location: [facility] Ht (in): 72 Wt (lb): 260 Ordering Physician: Roxanna Brock DO Attending/Referring Phys: [id number], Vinod Pediatric Dentist Misty Sesay, BRITTA Procedure CPT: Indications: chf, nstemi Cardiac Hx: Technical Quality: Fair Contrast 1: Total Dose (mL): Contrast 2: Total Dose (mL): MEASUREMENTS (Male / Female) Normal Values 2D ECHO LV Diastolic Diameter PLAX 4.0 cm 4.2 - 5.9 / 3.9 - 5.3 cm LV Systolic Diameter PLAX 2.7 cm IVS Diastolic Thickness 1.3 cm 0.6 - 1.0 / 0.6 - 0.9 cm LVPW Diastolic Thickness 1.4 cm 0.6 - 1.0 / 0.6 - 0.9 cm LV Relative Wall Thickness 0.7 RV Internal Dim ED PLAX 3.7 cm LVOT Diameter 2.5 cm LA Systolic Diameter LX 3.5 cm 3.0 - 4.0 / 2.7 - 3.8 cm LA Volume 64.1 cm??? 18 - 58 / 22 - 52 cm??? M-MODE Aortic Root Diameter MM 4.2 cm MV E Point Septal Separation 0.5 cm AV Cusp Separation MM 1.5 cm DOPPLER AV Peak Velocity 179.9 cm/s AV Peak Gradient 12.9 mmHg AV Mean Velocity 124.1 cm/s AV Mean Gradient 7.1 mmHg AV Velocity Time Integral 38.4 cm LVOT Peak Velocity 90.4 cm/s LVOT Peak Gradient 3.3 mmHg AV Area Cont Eq pk 2.4 cm??? MV Area PHT 3.4 cm??? MV Deceleration Time 192.9 ms TR Peak Velocity 215.4 cm/s TR Peak Gradient 18.6 mmHg Right Ventricular Systolic Press 23.6 mmHg FINDINGS Left Ventricle Left ventricular ejection fraction is estimated at 50-55 %. Left ventricular cavity size normal. Moderate concentric left ventricular hypertrophy. Right Ventricle Mild right ventricular dilatation. Right ventricular systolic pressure within normal limits. Right Atrium Normal right atrial size. Left Atrium Mildly increased left atrial volume. Mildly increased left atrial area. No evidence for an atrial septal defect. Mitral Valve Mild mitral annular calcification. Structurally normal mitral valve. No mitral stenosis, regurgitation or prolapse. Aortic Valve Focal thickening of the aortic valve cusps. Mild aortic stenosis with a peak gradient of 13 mmHg and a mean gradient of 7 mmHg. Tricuspid Valve Mild tricuspid regurgitation. Pulmonic Valve Mild pulmonic regurgitation. Pericardium Normal pericardium. No pericardial effusion. Aorta Moderate aortic dilatation at the level of the sinuses of valsalva 423 mm CONCLUSIONS Fairly well-preserved LV systolic function with moderate concentric LVH. Enlarged left atrium. Mitral annular calcification with aortic valve sclerosis. No pericardial effusion Previewed by: Dr. Ana Paula Guzmán MD (Electronically Signed) Final Date: 29 October 2021 10:28
--- NOTE | 2021-10-29 11:50 | P.PN ---
Subjective Progress Note Date: 10/29/21 Patient still sounds very congested. echo had preserved EF, RV and LA enlargement. CXR had possible RUL infiltrate. Gen: awake, alert HEENT: normocephalic, atraumatic, good hearing acuity, moist mucous membranes, bilateral crackles Resp: good air exchange, breathing comfortably with no accessory muscle use, irregular rhythm, no murmurs CVS: good distal perfusion x 4, GI: soft, NTTP, ND : no SPT, no CVAT, downs catheter not present MSK: no pitting edema, no clubbing Neuro: non-focal, moving all extremities Psych: cooperative, euthymic mood Assessment/plan: Acute on chronic heart failure exacerbation, diastolic RUL Infiltrate -Admit inpatient, telemetry -Cardiology consult -Strict ins and outs -Echocardiogram, preserved EF, RV and LA enlargement -Lasix IV -Repeat chest x-ray 10/28, possible RUL infiltrate -stop entresto -Chest physiotherapy q6h, mucomyst -ST consult Covid 19 -check prognostic labs, LDH, CRP, ferritin , fibrinogen , Procalcitonin , trops -droplet precautions Chronic afib -Stop digoxin per cardiology -Not on anticoagulation, presumably due to fall risk CAD Hypertension -Home medications reviewed and reconciled Full code DVT PPX lovenox sc Objective - Vital Signs Vital signs: Vital Signs Temp 98.3 F 10/29/21 08:30 Pulse 84 10/29/21 08:30 Resp 20 10/29/21 08:30 BP 103/62 10/29/21 08:30 Pulse Ox 94 L 10/29/21 08:30 FiO2 Intake & Output 10/28/21 10/29/21 10/29/21 18:59 06:59 18:59 Output Total 1000 651 575 Balance -1000 659 -575 Output: Urine 1000 650 575 Stool 1 Other: Voiding Method Bedpan Bedpan Urinal Urinal Diaper Diaper # Voids 1 1 # Bowel Movements 1 1 - Labs CBC & Chem 7: 10/28/21 09:11 10/28/21 09:11 Labs: Microbiology - Last 24 Hours (Table) 10/27/21 04:40 Blood Culture - Preliminary Blood No Growth after 48 hours
[2021-10-29 12:12] VITALS: BMI 35.2
[2021-10-29] MEDS: ALBUTEROL HFA INHALER INHALATION PRN (20:28)
[2021-10-29] MEDS: FAMOTIDINE 20 MG TAB PO SCH (21:11)
[2021-10-29] MEDS: ATORVASTATIN 40 MG TAB PO SCH (21:11)
[2021-10-29] MEDS: guaiFENesin 600 MG TABLET.ER PO SCH (21:50)
[2021-10-30 07:23] LABS: Basophils % (A) 0 %; Eosinophils # (A) 0.1 k/uL (0-0.7); Eosinophils % (A) 1 %; HCT 42.2 % (39.0-53.0); HGB 14.1 gm/dL (13.0-17.5); Lymphocytes # (A) 1.9 k/uL (1.0-4.8); Lymphocytes % (A) 22 %; MCH 32.4 pg (25.0-35.0); MCHC 33.4 g/dL (31.0-37.0); MCV 96.8 fL (80.0-100.0); Mean Platelet Volume 8.2; Monocytes # (A) 0.5 k/uL (0-1.0); Monocytes % (A) 6 %; Neutrophils # (A) 6.2 k/uL (1.3-7.7); Neutrophils % (A) 70 %; Platelet Count 192 k/uL (150-450); RBC 4.36 m/uL (4.30-5.90); RDW 13.2 % (11.5-15.5); WBC 8.8 k/uL (3.8-10.6)
[2021-10-30 08:06] LABS: African American GFR (CKD) >90 (>60 ml/min/1.73 sqM); Anion Gap 10 mmol/L; Blood Urea Nitrogen 11 mg/dL (9-20); Calcium 8.4 mg/dL (8.4-10.2); Carbon Dioxide 26 mmol/L (22-30); Chloride 101 mmol/L (98-107); Glucose 98 mg/dL (74-99); LDH 553 U/L (313-618); Non-African American GFR(CKD) 83 (>60 ml/min/1.73 sqM); Potassium 3.8 mmol/L (3.5-5.1); Sodium 137 mmol/L (137-145)
[2021-10-30] MEDS: PANTOPRAZOLE 40 MG TABLET PO SCH (10:12)
[2021-10-30] MEDS: FUROSEMIDE 10 MG/ML 4 ML VIAL IV SCH (10:12)
[2021-10-30] MEDS: guaiFENesin 600 MG TABLET.ER PO SCH ×2 (10:12→21:15)
[2021-10-30] MEDS: ASPIRIN 81 MG PO SCH (10:12)
[2021-10-30] MEDS: APIXABAN 5 MG TAB PO SCH ×2 (10:12→21:15)
[2021-10-30] MEDS: POTASSIUM CHLORIDE ER 20 MEQ TAB.ER PO SCH (10:12)
[2021-10-30] MEDS: BENZOCAINE/MENTHOL LOZENG 1 EACH LOZENGE MUCOUS MEM PRN (10:13)
[2021-10-30 10:29] LABS: C Reactive Protein 15.6 mg/dL (<1.0)
--- NOTE | 2021-10-30 10:44 | XR ---
EXAM: XR Chest, 1 View CLINICAL HISTORY: ITS.REASON XR Reason: hypoxia TECHNIQUE: Frontal view of the chest. COMPARISON: No relevant prior studies available. FINDINGS: Lungs: Suspect mild pulmonary vascular congestion. Pleural space: Unremarkable. No pneumothorax. Heart: Left atrial appendage clip seen. Heart size top normal. Mediastinum: Unremarkable. Bones/joints: Sequela from sternotomy noted. IMPRESSION: Suspect mild pulmonary vascular congestion.
--- NOTE | 2021-10-30 10:45 | P.PN ---
Subjective Progress Note Date: 10/30/21 CHIEF COMPLAINT: abnormal troponins HISTORY OF PRESENT ILLNESS: The patient is a 86-year-old male who presented to the emergency room with fever and chills. The patient has been feeling unwell for the last several days. He is found to be COVID-19 positive. He denied any associated chest pains or chest pressure. No significant for significant shortness of breath. Positive for muscle aches and pains. DIAGNOSTICS: EKG shows atrial fibrillation in the 50s Chest x-ray shows minimal pulmonary fibrotic changes Lab data: WBC 7.3, hemoglobin 13.2, hematocrit 40.8, platelet 196, d-dimer 1.18, sodium 137, potassium 4.3, BUN 17, creatinine 0.97, magnesium 2.1, AST 42, ALT 35, CRP 2.0, BNP 2350, troponin 0.09, 0.11, 0.08 10/28/2021 Patient remains hospitalized on 3S. He is Covid positive. Case discussed with patients nurse. According to patients nurse, the patient denies any chest pain or pressure. He denies SOB. He was started on IV lasix this morning per internal medicine. Telemetry reveals atrial fibrillation with a heart rate in the 80s. 10/29/2021 Patient evaluated this morning. He denies chest pain or pressure. Denies SOB. Reports a cough and a lot of congestion in his throat. Telemetry reveals atrial fibrillation with a heart rate in the 70s. 10/30/2021 Patient evaluated this morning. He denies chest pain or pressure. Denies SOB. Telemetry reveals atrial fibrillation with a heart rate in the 70s. Vital signs are stable. Echocardiogram completed revealing ejection fraction 50-55% with mild tricuspid regurgitation. PHYSICAL EXAM: Thorough physical exam not completed secondary to limited evaluation/examination due to Covid19 ASSESSMENT: Acute COVID-19 infection Elevated troponins of unclear significance Persistent atrial fibrillation, bradycardic, since resolved History of cardiomyopathy, ischemic History of 3V CABG, 2020 History of hypertension History of dyslipidemia PLAN: Continue to hold Digoxin and Metoprolol secondary to bradycardia Continue telemetry monitoring Patient to follow up outpatient with his primary cash shortage investigator out of [facility] We will sign off. Please reconsult if needed. Nurse practitioner note has been reviewed by physician. Signing provider agrees with the documented findings, assessment, and plan of care. Objective - Vital Signs Vital signs: Vital Signs Temp 98.0 F 10/30/21 03:37 Pulse 83 10/30/21 03:37 Resp 18 10/30/21 03:37 BP 127/70 10/30/21 03:37 Pulse Ox 94 L 10/30/21 03:37 FiO2 Intake & Output 10/29/21 10/30/21 10/30/21 18:59 06:59 18:59 Intake Total 956 Output Total 675 451 Balance 281 -451 Intake: Oral 956 Output: Urine 675 450 Stool 1 Other: Voiding Method Bedpan Bedpan Urinal Urinal Diaper Diaper # Bowel Movements 1 - Labs CBC & Chem 7: 10/30/21 06:55 10/30/21 06:55 Labs: Abnormal Lab Results - Last 24 Hours (Table) 10/30/21 Range/Units 06:55 C-Reactive Protein 15.6 H (<1.0) mg/dL Microbiology - Last 24 Hours (Table) 10/27/21 04:40 Blood Culture - Preliminary Blood No Growth after 72 hours
--- NOTE | 2021-10-30 12:29 | P.PN ---
Subjective Progress Note Date: 10/30/21 Pt has had some difficulty swallowing and remains on 2L NC. Repeat CXR today, MRI Brain, Neurology consult, ST consults added. Gen: awake, alert HEENT: normocephalic, atraumatic, good hearing acuity, moist mucous membranes, bilateral crackles Resp: good air exchange, breathing comfortably with no accessory muscle use, irregular rhythm, no murmurs CVS: good distal perfusion x 4, GI: soft, NTTP, ND : no SPT, no CVAT, downs catheter not present MSK: no pitting edema, no clubbing Neuro: non-focal, moving all extremities Psych: cooperative, euthymic mood Assessment/plan: Acute on chronic heart failure exacerbation, diastolic RUL Infiltrate -Admit inpatient, telemetry -Cardiology consult -Strict ins and outs -Echocardiogram, preserved EF, RV and LA enlargement -Lasix IV -Repeat chest x-ray 10/28, possible RUL infiltrate -stop entresto -Chest physiotherapy q6h, mucomyst -ST consult Covid 19 -check prognostic labs, LDH, CRP, ferritin , fibrinogen , Procalcitonin , trops -droplet precautions Chronic afib -Stop digoxin per cardiology -Not on anticoagulation, presumably due to fall risk CAD Hypertension -Home medications reviewed and reconciled Full code DVT PPX lovenox sc Objective - Vital Signs Vital signs: Vital Signs Temp 97.9 F 10/30/21 12:00 Pulse 63 10/30/21 12:00 Resp 18 10/30/21 12:00 BP 103/63 10/30/21 12:00 Pulse Ox 98 10/30/21 12:00 FiO2 Intake & Output 10/29/21 10/30/21 10/30/21 18:59 06:59 18:59 Intake Total 956 Output Total 675 451 Balance 281 -451 Intake: Oral 956 Output: Urine 675 450 Stool 1 Other: Voiding Method Bedpan Bedpan Urinal Urinal Diaper Diaper # Bowel Movements 1 - Labs CBC & Chem 7: 10/30/21 06:55 10/30/21 06:55 Labs: Abnormal Lab Results - Last 24 Hours (Table) 10/30/21 Range/Units 06:55 C-Reactive Protein 15.6 H (<1.0) mg/dL Microbiology - Last 24 Hours (Table) 10/27/21 04:40 Blood Culture - Preliminary Blood No Growth after 72 hours
--- NOTE | 2021-10-30 15:58 | MR ---
EXAMINATION TYPE: MR brain wo con DATE OF EXAM: 10/30/2021 COMPARISON: NONE HISTORY: Dysphasia. Currently Covid positive. TECHNIQUE: Multiplanar, multisequence imaging of the brain and brainstem is performed without IV cont rast. FINDINGS: Diffusion weighted images demonstrate no evidence of a recent infarct or other diffusion abnormality. There is mild ventricular and sulcal prominence. There are multifocal and confluent areas of T2 hyper intensity seen throughout the white matter bilaterally being more prominent at the periventricular le vels. Midline structures suggest empty sella morphology. The craniocervical junction appears within normal limits. Normal vascular flow voids are present. Mild to moderate mucosal thickening involving the et hmoid sinuses bilaterally. Mild mucosal thickening in visualized portion of the maxillary sinuses. Gl obes are intact bilaterally IMPRESSION: No MRI evidence for recent infarct. Mild diffuse cerebral atrophy and more moderate chron ic small vessel ischemic changes are appreciated. Chronic paranasal sinus disease noted.
--- NOTE | 2021-10-30 16:00 | FL ---
EXAMINATION TYPE: FL barium swallow w video DATE OF EXAM: 10/30/2021 MODIFIED SWALLOW / DEGLUTITION STUDY CLINICAL HISTORY: Dysphagia. Covid positive. TECHNIQUE: Deglutition study is performed utilizing thin liquid barium, honey and nectar thick liqui d barium, barium thick applesauce, and barium coated cracker. Approximate 1 minute of fluoro time and 0 images obtained. COMPARISON: None FINDINGS: The oral and pharyngeal phases show satisfactory initiation with absent epiglottic inversio n noted. Satisfactory mastication is seen with solid modalities tested. There is one episode of flores sient penetration which clears with thin liquid barium. No aspiration with any modality tested. Mild to moderate pharyngeal residuals are appreciated. IMPRESSION: No aspiration noted. Please refer to speech therapist notes for further details if johan beth.
--- NOTE | 2021-10-30 17:59 | P.CNNES ---
History of Present Illness Consult date: 10/30/21 Requesting physician: Jose Elias Mesa Reason for Consult: Dysphagia History of Present Illness: Patient is an 86-year-old male came to the hospital by ambulance 10/26/2021 for fever, generalized weakness. Patient's fever was 100.7 as per EMS flow sheet. Patient denied pain or difficulty breathing.. Patient says that he came to the hospital because of Covid infection. He states that his is also admitted for the same problem. Patient has been fully vaccinated, has received 4 shots. Patient lives his . Patient was diagnosed with hughes virus. Patient has been noticed to have dysphagia, therefore neurology was consulted. 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 About 3-4 months after surgery, his speech became slurred. He also noticed numbness of the right lower facial region from ear to the chin since then. He denies any weakness of the arms or legs, any numbness or tingling, diplopia, droopy eyelids, dyspnea or any stroke symptoms. He denies any tremors. He can walk usually with 4 wheeled walker. He uses walker because otherwise he loses balance and feels more steady with it. He believes that he has slowed down a little in the last year. He does not see any neurologist. MRI of the brain revealed no evidence for recent infarct. Mild diffuse cerebral atrophy and more moderate chronic small vessel ischemic change are appreciated. Chronic paranasal sinus disease noted. I personally reviewed MRI, I agree with the findings. Barium swallow revealed no aspiration. Per speech therapy note, patient has moderate impairment of oral phase, and moderate impairment of pharyngeal phase. Recommending mechanical soft, thin liquid diet. Blood tests shows normal CBC, Chem-7, troponin is mildly elevated. Influenza screen negative, RSV negative. UA negative. Troponins are mildly elevated. Patient is positive for hughes virus PCR. Patient's last hemoglobin A1c 6.2 on 10/13/2021, cholesterol 97 and LDL 37. TSH is normal. Patient denies hypertension or diabetes. He quit smoking 60 years ago. Denies any alcohol, drinks once in a while. He did moderate drinking when much younger. I spoke to patient's xgswfuzo-os-kzu Sweta and son on the phone, spent 20 minutes on it. They informed me that patient has developed numbness of the right lower jaw region since his bypass surgery about 5 years ago. Patient underwent quad ruple bypass and right carotid endarterectomy at the same time 5 years ago. Patient developed gait difficulty for the last 2-3 years, when he is walking with a shuffle, problems with coordination and using a walker and is getting more and more dependent on it. He has suffered from a few falls. In the last couple years he has been drooling, some slurred speech and he curls his tongue frequently. Patient was evaluated by a neurologist in [facility] about a year ago, and was diagnosed with age-related changes, no Parkinson's disease. Patient's son and [id number] also concurred that he has been getting mentally slow, and was forgetful in the last 6 months. No obvious history of strokes or TIAs in the past. Patient also has frequency of urination, mild occasional incontinence, therefore he has been wearing depends. Review of Systems Constitutional: Reports fever, Denies chills, Denies chronic headaches Eyes: denies blurred vision, denies pain Ears, nose, mouth and throat: Denies headache, Denies sore throat Cardiovascular: Reports shortness of breath, Denies chest pain Respiratory: Reports cough, Reports excessive sputum Gastrointestinal: Denies abdominal pain, Denies diarrhea, Denies nausea, Denies vomiting Genitourinary: Reports incontinence, Reports urinary frequency Musculoskeletal: Reports myalgias Integumentary: Denies pruritus, Denies rash Neurological: Reports as per HPI Psychiatric: Denies anxiety, Denies depression Endocrine: Reports fatigue, Denies weight change Hematologic/Lymphatic: Denies lymphadenopathy Allergic/Immunologic: Denies persistent infections Past Medical History Past Medical History: Atrial Fibrillation, Heart Failure, GERD/Reflux, Hyperlipidemia, Hypertension History of Any Multi-Drug Resistant Organisms: None Reported Past Surgical History: Coronary Bypass/CABG Past Anesthesia/Blood Transfusion Reactions: Unable to Obtain Past Psychological History: No Psychological Hx Reported Smoking Status: Former smoker Past Alcohol Use History: None Reported Past Drug Use History: None Reported - Past Family History Family Family Medical History: Coronary Artery Disease (CAD) Medications and Allergies Home Medications Medication Instructions Recorded Confirmed Type Apixaban [Eliquis] 5 mg PO BID@0800,199910/27/21 10/27/21 History Atorvastatin [Lipitor] 40 mg PO HS@199910/27/21 10/27/21 History Famotidine [Pepcid] 20 mg PO HS@199910/27/21 10/27/21 History Furosemide [Lasix] 40 mg PO DAILY@79910/27/21 10/27/21 History Omeprazole 20 mg PO DAILY@79910/27/21 10/27/21 History Potassium Chloride ER [K-Dur 20] 20 meq PO DAILY@79910/27/21 10/27/21 History Acetaminophen Tab [Tylenol] 650 mg PO Q4HR PRN tab 10/30/21 Rx Albuterol Inhaler [Ventolin Hfa 2 puff INHALATION RT-Q6H PRN each 10/30/21 Rx Inhaler] Aspirin 81 mg PO DAILY tab 10/30/21 Rx Ibuprofen [Advil] 200 mg PO Q4HR PRN tab 10/30/21 Rx guaiFENesin [Mucinex] 600 mg PO Q12HR tab 10/30/21 Rx Allergies Allergy/AdvReac Type Severity Reaction Status Date / Time No Known Allergies Allergy Verified 10/27/21 09:49 Physical Examination - Vital Signs Vital Signs: Vital Signs Temp Pulse Pulse Resp BP Pulse Ox 10/30/21 12:00 97.9 F 63 18 103/63 98 10/30/21 03:37 98.0 F 83 18 127/70 94 L 10/30/21 01:36 77 18 10/29/21 23:42 98.4 F 77 18 148/79 95 10/29/21 20:00 18 10/29/21 19:49 97.7 F 71 18 109/64 95 Intake and Output 10/30/21 10/30/21 10/30/21 06:59 14:59 22:59 Output Total 451 475 Balance -451 -475 Output: Urine 450 475 Stool 1 Other: Voiding Method Bedpan Urinal Diaper Patient is an elderly male, very pleasant, in no acute distress. He is coughing frequently. Patient is alert awake oriented to time place and person. He knows it is October 2021, and that he is in [facility]. Patient can name and repeat very well. No aphasia. He has mild dysarthria. Attention, concentration and fund of knowledge is adequate. On cranial nerve examination, pupils are equal, round and reacting to light, visual parada are full on confrontation, with no neglect on double simultaneous stimulation. Extraocular muscles are intact with no nystagmus. Face is symmetric, tongue protrudes to the midline. Palatal elevation and sensation normal, hearing and shoulder shrug normal, facial sensation normal. Patient's strength of the upper and lower facial muscles, tongue muscles appears normal. No fasciculations of the tongue or muscles of other extremities noted. Very mild atrophy of the intrinsic muscles of hands. On muscle strength testing, there is no pronator drift and the strength is normal in arms and legs distally and proximally. Deep tendon reflexes are symmetric biceps 1-1+, brachioradialis 1-1+, knees 2+, ankles 1+, plantars are clearly upgoing bilaterally. Sensory to touch is equal with no neglect on double simultaneous stimulation. Cerebellar function showed no ataxia for tiqzev-oy-xejo testing. No dysdiadochokinesia. No ataxia for hsiz-xn-mtli testing on either side. Tone is mild to moderately increased on the right, mildly on the left, and bulk of muscles normal. No atrophy, no fasciculations. Patient does appear mildly bradykinetic. No tremors at rest noted. Gait deferred.. On general examination, there is no carotid bruit or murmur, S1-S2 audible. Chest is clear on consultation. Abdomen is soft nontender. No organomegaly, bowel sounds present. Peripheral pulses are present. No edema. Results - Laboratory Findings CBC and BMP: 10/30/21 06:55 10/30/21 06:55 Abnormal Lab Findings: Abnormal Labs 10/26/21 10/26/21 10/26/21 23:17 23:17 23:17 RBC 4.20 L PT 12.2 H APTT 32.5 H D-Dimer Carbon Dioxide 21 L Glucose 100 H Ferritin Troponin I C-Reactive Protein Urine Protein Urine Ketones Coronavirus (PCR) 10/26/21 10/26/21 10/27/21 23:17 23:43 03:07 RBC PT APTT D-Dimer Carbon Dioxide Glucose Ferritin Troponin I 0.094 H* 0.115 H* C-Reactive Protein Urine Protein Urine Ketones Coronavirus (PCR) Detected A 10/27/21 10/27/21 10/27/21 04:40 04:40 09:15 RBC PT APTT D-Dimer 1.18 H Carbon Dioxide Glucose Ferritin 541.0 H Troponin I C-Reactive Protein 2.0 H Urine Protein Trace H Urine Ketones Trace H Coronavirus (PCR) 10/27/21 10/28/21 10/30/21 09:26 09:11 06:55 RBC PT APTT D-Dimer Carbon Dioxide Glucose 105 H Ferritin Troponin I 0.085 H* C-Reactive Protein 15.6 H Urine Protein Urine Ketones Coronavirus (PCR) Assessment and Plan Assessment: * Dysphagia, unclear etiology. Examination revealed mild spastic dysarthria, mildly increased tone, mild bradykinesia, no tremors at rest. Patient has bilateral Babinski. Patient has mild parkinsonian features, but some spasticity as well. No evidence of dementia. Rule out multiple system atrophy. Rule out atypical Parkinson's. * Acute Covid-19 infection Plan: * Patient will need EMG and nerve conductions to rule out any motor neuron disease, although clinically no evidence of lower motor neuron dysfunction. * MRI of the brain revealed no evidence for recent infarct. Mild diffuse cerebral atrophy and more moderate chronic small vessel ischemic change are appreciated. Chronic paranasal sinus disease noted. * We will check acetylcholine receptor antibodies, B12, folate, MMA, RPR. TSH is normal. * We will get collateral history from patient's family. * Neurology will follow. Thank you for the consult. Addendum: Spoke to patient's son and prhycboa-zz-yfe Sweta on the phone. Patient has two- year history of slightly worsening dysphagia, dysarthria, sometimes drooling, shuffling gait, slowing down, mental slowing, incoordination. Also has frequency of urination and occasional incontinence, using depends. Symptoms are suggestive of possible multiple system atrophy. Patient may benefit from ERENDIRA scan as an outpatient. Recommend patient follow up with neurologist as an outpatient. Time with Patient: Greater than 30 (Spent over 75 minutes.)
[2021-10-30] MEDS: ALBUTEROL HFA INHALER INHALATION PRN (20:33)
[2021-10-30] MEDS: ATORVASTATIN 40 MG TAB PO SCH (21:15)
[2021-10-30] MEDS: FAMOTIDINE 20 MG TAB PO SCH (21:16)
[2021-10-31] MEDS: FUROSEMIDE 10 MG/ML 4 ML VIAL IV SCH (08:51)
[2021-10-31] MEDS: PANTOPRAZOLE 40 MG TABLET PO SCH (08:51)
[2021-10-31] MEDS: APIXABAN 5 MG TAB PO SCH ×2 (08:51→20:09)
[2021-10-31] MEDS: guaiFENesin 600 MG TABLET.ER PO SCH ×2 (08:51→20:09)
[2021-10-31] MEDS: ASPIRIN 81 MG PO SCH (08:51)
[2021-10-31] MEDS: POTASSIUM CHLORIDE ER 20 MEQ TAB.ER PO SCH (08:51)
--- NOTE | 2021-10-31 14:43 | P.PN ---
Subjective Progress Note Date: 10/31/21 Pt has no evidence of stroke on MRI. Neurology consult appreciated. Pt now on room air. Gen: awake, alert HEENT: normocephalic, atraumatic, good hearing acuity, moist mucous membranes, bilateral crackles Resp: good air exchange, breathing comfortably with no accessory muscle use, irregular rhythm, no murmurs CVS: good distal perfusion x 4, GI: soft, NTTP, ND : no SPT, no CVAT, downs catheter not present MSK: no pitting edema, no clubbing Neuro: non-focal, moving all extremities Psych: cooperative, euthymic mood Assessment/plan: Acute on chronic heart failure exacerbation, diastolic RUL Infiltrate -Admit inpatient, telemetry -Cardiology consult -Strict ins and outs -Echocardiogram, preserved EF, RV and LA enlargement -Lasix IV -Repeat chest x-ray 10/28, possible RUL infiltrate -stop entresto -Chest physiotherapy q6h, mucomyst -ST consult Covid 19 -check prognostic labs, LDH, CRP, ferritin , fibrinogen , Procalcitonin , trops -droplet precautions Chronic afib -Stop digoxin per cardiology -Not on anticoagulation, presumably due to fall risk CAD Hypertension -Home medications reviewed and reconciled Full code DVT PPX lovenox sc Objective - Vital Signs Vital signs: Vital Signs Temp 97.7 F 10/31/21 12:00 Pulse 73 10/31/21 12:00 Resp 18 10/31/21 12:00 BP 116/69 10/31/21 12:00 Pulse Ox 95 10/31/21 12:00 FiO2 Intake & Output 10/30/21 10/31/21 10/31/21 18:59 06:59 18:59 Intake Total 10 270 Output Total 677 472 200 Balance -667 -472 70 Intake: IV 10 10 Invasive Line 1 10 10 Oral 260 Output: Urine 675 470 200 Stool 2 2 Other: Voiding Method Urinal Bedpan Urinal Urinal Diaper - Labs CBC & Chem 7: 10/30/21 06:55 10/30/21 06:55 Labs: Microbiology - Last 24 Hours (Table) 10/27/21 04:40 Blood Culture - Preliminary Blood No Growth after 96 hours
[2021-10-31] MEDS: CARBIDOPA-LEVODOPA 25-100 MG 1 EACH TAB PO SCH (20:09)
[2021-10-31] MEDS: FAMOTIDINE 20 MG TAB PO SCH (20:09)
[2021-10-31] MEDS: ATORVASTATIN 40 MG TAB PO SCH (20:09)
[2021-11-01] MEDS: IBUPROFEN 200 MG TAB PO PRN ×2 (04:20→21:17)
[2021-11-01] MEDS: guaiFENesin 600 MG TABLET.ER PO SCH ×2 (08:32→21:17)
[2021-11-01] MEDS: ASPIRIN 81 MG PO SCH (08:32)
[2021-11-01] MEDS: FUROSEMIDE 10 MG/ML 4 ML VIAL IV SCH (08:32)
[2021-11-01] MEDS: CARBIDOPA-LEVODOPA 25-100 MG 1 EACH TAB PO SCH ×2 (08:32→21:17)
[2021-11-01] MEDS: POTASSIUM CHLORIDE ER 20 MEQ TAB.ER PO SCH (08:32)
[2021-11-01] MEDS: APIXABAN 5 MG TAB PO SCH ×2 (08:32→21:17)
[2021-11-01] MEDS: PANTOPRAZOLE 40 MG TABLET PO SCH (08:32)
[2021-11-01] MEDS: ALBUTEROL HFA INHALER INHALATION PRN (08:49)
--- NOTE | 2021-11-01 13:43 | P.PN ---
Subjective Progress Note Date: 11/01/21 Pt has no evidence of stroke on MRI. Neurology consult appreciated. Pt now on room air. Gen: awake, alert HEENT: normocephalic, atraumatic, good hearing acuity, moist mucous membranes, bilateral crackles Resp: good air exchange, breathing comfortably with no accessory muscle use, irregular rhythm, no murmurs CVS: good distal perfusion x 4, GI: soft, NTTP, ND : no SPT, no CVAT, downs catheter not present MSK: no pitting edema, no clubbing Neuro: non-focal, moving all extremities Psych: cooperative, euthymic mood Assessment/plan: Acute on chronic heart failure exacerbation, diastolic RUL Infiltrate -Admit inpatient, telemetry -Cardiology consult -Strict ins and outs -Echocardiogram, preserved EF, RV and LA enlargement -Lasix IV -Repeat chest x-ray 10/28, possible RUL infiltrate -stop entresto -Chest physiotherapy q6h, mucomyst -ST consult Covid 19 -check prognostic labs, LDH, CRP, ferritin , fibrinogen , Procalcitonin , trops -droplet precautions Chronic afib -Stop digoxin per cardiology -Not on anticoagulation, presumably due to fall risk CAD Hypertension -Home medications reviewed and reconciled Full code DVT PPX lovenox sc Objective - Vital Signs Vital signs: Vital Signs Temp 98 F 11/01/21 08:00 Pulse 59 L 11/01/21 08:00 Resp 18 11/01/21 08:00 BP 129/74 11/01/21 08:00 Pulse Ox 95 11/01/21 08:00 FiO2 Intake & Output 10/31/21 11/01/21 11/01/21 18:59 06:59 18:59 Intake Total 280 20 20 Output Total 200 300 Balance 80 -280 20 Intake: IV 20 20 20 Invasive Line 1 20 20 20 Oral 260 Output: Urine 200 300 Other: Voiding Method Urinal Bedpan Bedpan Urinal Urinal Diaper Diaper - Labs CBC & Chem 7: 10/30/21 06:55 10/30/21 06:55 Labs: Microbiology - Last 24 Hours (Table) 10/27/21 04:40 Blood Culture - Preliminary Blood No Growth after 120 hours
[2021-11-01] MEDS: ATORVASTATIN 40 MG TAB PO SCH (21:17)
[2021-11-01] MEDS: FAMOTIDINE 20 MG TAB PO SCH (21:17)
[2021-11-02] MEDS: FUROSEMIDE 10 MG/ML 4 ML VIAL IV SCH (08:30)
[2021-11-02] MEDS: ASPIRIN 81 MG PO SCH (08:31)
[2021-11-02] MEDS: PANTOPRAZOLE 40 MG TABLET PO SCH (08:31)
[2021-11-02] MEDS: CARBIDOPA-LEVODOPA 25-100 MG 1 EACH TAB PO SCH ×2 (08:31→21:10)
[2021-11-02] MEDS: guaiFENesin 600 MG TABLET.ER PO SCH ×2 (08:31→21:10)
[2021-11-02] MEDS: APIXABAN 5 MG TAB PO SCH ×2 (08:31→21:10)
[2021-11-02] MEDS: POTASSIUM CHLORIDE ER 20 MEQ TAB.ER PO SCH (08:31)
[2021-11-02] MEDS: IBUPROFEN 200 MG TAB PO PRN (12:54)
--- NOTE | 2021-11-02 13:29 | XR ---
EXAMINATION TYPE: XR chest 1V portable DATE OF EXAM: 11/02/2021 1:04 PM COMPARISON: Chest radiographs from 10/30/2021 TECHNIQUE: XR chest 1V portable Portable AP radiograph of the chest. CLINICAL INDICATION:Male, 86 years old with history of chest pain; FINDINGS: Lungs/Pleura: There is no evidence of pleural effusion, focal consolidation, or pneumothorax. Pulmonary vascularity: Unremarkable. Heart/mediastinum: Cardiomediastinal silhouette is unremarkable. Left atrial appendage occlusion celena ce is present. Musculoskeletal: No acute osseous pathology. IMPRESSION: No acute cardiopulmonary disease/process.
--- NOTE | 2021-11-02 13:53 | P.PN ---
Subjective Progress Note Date: 11/02/21 Pt having mid back pain today, no more shortness of breath, no more hypoxia, dysphagia improving. Gen: awake, alert HEENT: normocephalic, atraumatic, good hearing acuity, moist mucous membranes, bilateral crackles Resp: good air exchange, breathing comfortably with no accessory muscle use, irregular rhythm, no murmurs CVS: good distal perfusion x 4, GI: soft, NTTP, ND : no SPT, no CVAT, downs catheter not present MSK: no pitting edema, no clubbing Neuro: non-focal, moving all extremities Psych: cooperative, euthymic mood Assessment/plan: Acute on chronic heart failure exacerbation, diastolic RUL Infiltrate -Admit inpatient, telemetry -Cardiology consult -Strict ins and outs -Echocardiogram, preserved EF, RV and LA enlargement -Lasix IV -Repeat chest x-ray 10/28, possible RUL infiltrate -stop entresto -Chest physiotherapy q6h, mucomyst -ST consult Covid 19 -check prognostic labs, LDH, CRP, ferritin , fibrinogen , Procalcitonin , trops -droplet precautions Chronic afib -Stop digoxin per cardiology -Not on anticoagulation, presumably due to fall risk CAD Hypertension -Home medications reviewed and reconciled Full code DVT PPX lovenox sc Objective - Vital Signs Vital signs: Vital Signs Temp 97.3 F L 11/02/21 12:46 Pulse 73 11/02/21 12:46 Resp 16 11/02/21 12:46 BP 145/74 11/02/21 12:46 Pulse Ox 95 11/02/21 12:46 FiO2 Intake & Output 11/01/21 11/02/21 11/02/21 18:59 06:59 18:59 Intake Total 258 128 Output Total 250 350 Balance 8 -222 Intake: IV 20 10 Invasive Line 1 20 10 Oral 238 118 Output: Urine 250 350 Other: Voiding Method Bedpan Bedpan Bedpan Urinal Urinal Urinal Diaper Diaper Diaper - Labs CBC & Chem 7: 10/30/21 06:55 10/30/21 06:55 Labs: Microbiology - Last 24 Hours (Table) 10/27/21 04:40 Blood Culture - Final Blood No Growth after 144 hours
[2021-11-02] MEDS: ALBUTEROL HFA INHALER INHALATION PRN (19:47)
[2021-11-02] MEDS: ATORVASTATIN 40 MG TAB PO SCH (21:10)
[2021-11-02] MEDS: ACETAMINOPHEN TAB 325 MG TAB PO PRN (21:10)
[2021-11-02] MEDS: FAMOTIDINE 20 MG TAB PO SCH (21:10)
--- NOTE | 2021-11-03 00:43 | P.PN ---
Subjective Progress Note Date: 11/02/21 Patient was seen for a follow-up. Patient's jjzamjww-cl-dow Sweta was also on the speaker phone during the time of this encounter. Patient was started on Sinemet 25/100 twice a day. He has not noticed any improvement. Continues to have slurred speech and dysphagia. Denies any side effect of medication. Denies any headache, dizziness, numbness tingling or focal weakness. Patient appears more comfortable. Spoke to patient's son and [id number]-uxr Sweta on the phone. Patient has two- year history of slightly worsening dysphagia, dysarthria, sometimes drooling, shuffling gait, slowing down, mental slowing, incoordination. Also has frequency of urination and occasional incontinence, using depends. Symptoms are suggestive of possible multiple system atrophy. Patient may benefit from ERENDIRA scan as an outpatient. Objective - Vital Signs Vital signs: Vital Signs Temp 97.3 F L 11/02/21 12:46 Pulse 73 11/02/21 12:46 Resp 16 11/02/21 12:46 BP 145/74 11/02/21 12:46 Pulse Ox 95 11/02/21 12:46 FiO2 Intake & Output 11/01/21 11/02/21 11/02/21 18:59 06:59 18:59 Intake Total 258 128 Output Total 250 350 Balance 8 -222 Intake: IV 20 10 Invasive Line 1 20 10 Oral 238 118 Output: Urine 250 350 Other: Voiding Method Bedpan Bedpan Bedpan Urinal Urinal Urinal Diaper Diaper Diaper - Exam Patient is alert and awake, fully oriented. Speech is mildly spastic dysarthric, but no aphasia. Patient can name and repeat very well. Cranial nerves are significant for normal facial strength bilaterally. Patient's strength of tongue appears slightly weak for [id number] movement. No obvious tongue fasciculations. Patient's muscle strength is normal. Tone is mildly increased. No tremors at rest. No ataxia for [id number] testing. Patient has mild bradykinesia. Gait deferred. Sensations are equal. - Labs CBC & Chem 7: 10/30/21 06:55 10/30/21 06:55 Labs: Microbiology - Last 24 Hours (Table) 10/27/21 04:40 Blood Culture - Final Blood No Growth after 144 hours Assessment and Plan Assessment: * Dysphagia, unclear etiology. Examination revealed mild spastic dysarthria, mildly increased tone, mild bradykinesia, no tremors at rest. Patient has bilateral Babinski. Patient has mild parkinsonian features, but some spasticity as well. Rule out multiple system atrophy. Rule out atypical Parkinson's. Rule out PLS. * Acute Covid-19 infection Plan: * Patient was empirically started on Sinemet 25/100 twice a day on 10/31/2021. Patient has not noticed much improvement. On my examination, patient was slightly less rigid. We will increase dose of Sinemet to 25/100 3 times a day. He will stay on this medication for at least 2-3 weeks. Patient and his [id number] were recommended to stop Sinemet gradually, if no improvement over the next 2-3 weeks. * Patient will need EMG and nerve conductions to rule out any motor neuron disease, although clinically no evidence of lower motor neuron dysfunction. * MRI of the brain revealed no evidence for recent infarct. Mild diffuse cerebral atrophy and more moderate chronic small vessel ischemic change are appreciated. Chronic paranasal sinus disease noted. * Await acetylcholine receptor antibodies, B12 585, folate 6.9, MMA, RPR nonreactive. TSH is normal. We will start folate replacement. * Recommend patient follow up with neurologist as an outpatient, preferably a movement disorder specialist. * Neurologically clear for discharge. Please call neurology if any other concerns.
[2021-11-03 08:58] VITALS: BP 108/67; TEMP 97.4
[2021-11-03] MEDS: APIXABAN 5 MG TAB PO SCH (08:59)
[2021-11-03] MEDS: ASPIRIN 81 MG PO SCH (08:59)
[2021-11-03] MEDS: guaiFENesin 600 MG TABLET.ER PO SCH (08:59)
[2021-11-03] MEDS: PANTOPRAZOLE 40 MG TABLET PO SCH (08:59)
[2021-11-03] MEDS ORDERED: CARBIDOPA-LEVODOPA 25-100 MG 1 EACH TAB PO SCH (09:00)
[2021-11-03] MEDS ORDERED: FOLIC ACID 1 MG TAB PO SCH (09:00)
[2021-11-03] MEDS: FUROSEMIDE 10 MG/ML 4 ML VIAL IV SCH (09:00)
[2021-11-03] MEDS: POTASSIUM CHLORIDE ER 20 MEQ TAB.ER PO SCH (09:11)
[2021-11-03 10:19] VITALS: RESP 18
[2021-11-03 11:49] VITALS: PULSE 72
--- NOTE | 2021-11-03 14:31 | P.DS ---
Providers Date of admission: 10/28/21 09:50 Expected date of discharge: 11/03/21 Attending physician: Nate Diaz MD Consults: 10/30/21 10:44 Consult Physician Routine Consulting Provider: Brooklyn Joseph Consult Reason/Comments: dysphagia Do you want consulting provider notified?: Yes Primary care physician: Caridad Vick MD Hospital Course: Acute on chronic heart failure exacerbation, diastolic RUL Infiltrate Covid 19 Dysphagia Chronic afib CAD Hypertension 86 year old male with Afib not on blood thinners, diastolic heart failure, cad, htn, who is a [facility] presented for evaluation of generalized weakness, and fever. In the ED workup positive for COVID , elevated trops, and elevated BNP. Patient was also noted to be bradycardic. Patient's hypoxia was felt to be related to congestion as well as to elevated BNP consistent with diastolic heart failure. Patient improved with pulmonary toilet as well as diuresis. During auscultation, patient was noted to have some difficulty swallowing as well as slurred speech, prompting neurology evaluation as well as MRI. Patient did not have any evidence of a stroke recently, or at all. 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 Patient was started on a trial of Sinemet for 2-3 weeks. He'll be followed up with primary care, neurology. Patient was discharged back to assisted living facility with home care services for further PT. [id number] was contacted with discharge recommendations. I spent 40 minutes coordinating this complex discharge him at discharge date 11/03. Gen: awake, alert HEENT: normocephalic, atraumatic, good hearing acuity, moist mucous membranes, bilateral crackles Resp: good air exchange, breathing comfortably with no accessory muscle use, irregular rhythm, no murmurs CVS: good distal perfusion x 4, GI: soft, NTTP, ND : no SPT, no CVAT, downs catheter not present MSK: no pitting edema, no clubbing Neuro: non-focal, moving all extremities Psych: cooperative, euthymic mood Patient Condition at Discharge: Stable Plan - Discharge Summary New Discharge Prescriptions: New Ibuprofen [Advil] 200 mg PO Q4HR PRN tab PRN Reason: Pain Aspirin 81 mg PO DAILY tab Acetaminophen Tab [Tylenol] 650 mg PO Q4HR PRN tab PRN Reason: Fever>101 guaiFENesin [Mucinex] 600 mg PO Q12HR tab Albuterol Inhaler [Ventolin Hfa Inhaler] 2 puff INHALATION RT-Q6H PRN each PRN Reason: Shortness Of Breath Or Wheezing Continue Apixaban [Eliquis] 5 mg PO BID@0800,1999 Potassium Chloride ER [K-Dur 20] 20 meq PO DAILY@0800 Omeprazole 20 mg PO DAILY@0800 Furosemide [Lasix] 40 mg PO DAILY@08 Famotidine [Pepcid] 20 mg PO HS@1999 Atorvastatin [Lipitor] 40 mg PO HS@1999 Discontinued Sacubitril/Valsartan [Entresto 24 mg-26 mg Tablet] 1 tab PO BID@799,1999 Digoxin [Lanoxin] 125 mcg PO DAILY@08 Metoprolol Tartrate [Lopressor] 50 mg PO BID@799,1999 Discharge Medication List Apixaban [Eliquis] 5 mg PO BID@0800,199910/27/21 [History] Atorvastatin [Lipitor] 40 mg PO HS@199910/27/21 [History] Famotidine [Pepcid] 20 mg PO HS@199910/27/21 [History] Furosemide [Lasix] 40 mg PO DAILY@0800 10/27/21 [History] Omeprazole 20 mg PO DAILY@0800 10/27/21 [History] Potassium Chloride ER [K-Dur 20] 20 meq PO DAILY@0800 10/27/21 [History] Acetaminophen Tab [Tylenol] 650 mg PO Q4HR PRN tab 10/30/21 [Rx] Albuterol Inhaler [Ventolin Hfa Inhaler] 2 puff INHALATION RT-Q6H PRN each 10/30/21 [Rx] Aspirin 81 mg PO DAILY tab 10/30/21 [Rx] Ibuprofen [Advil] 200 mg PO Q4HR PRN tab 10/30/21 [Rx] guaiFENesin [Mucinex] 600 mg PO Q12HR tab 10/30/21 [Rx] Follow up Appointment(s)/Referral(s): Caridad Vick MD [Primary Care Provider] - 1-2 days Henrry Hinds MD [Medical Doctor] - 1 Week (Multisystem Atrophy) Fabian Pace MD [STAFF PHYSICIAN] - 1 Week Patient Instructions/Handouts: COVID-19 (Coronavirus Disease 2019) (DC) Discharge Disposition: DC/TRNS INTERMEDIATE CARE FAC
[2021-11-04 07:03] LABS: Methylmalonic Acid 0.18 umol/L (<0.40)
[2021-11-04 22:37] LABS: Acetylchol Recept Bind Ab <0.30 nmol/L
== END 2021-11-03 14:14 | disposition home health service (06) | DRG 177 ==
LOC: EC 22:47 → 3SCARD 10-27 02:01 → OBSVTOIN 10-28 09:50
PROVIDERS: ADMIT Internal Medicine; ATTEND Internal Medicine
PROC: 8E0ZXY6 Isolation (ICD-10-PCS; principal; 2021-10-28)
DX: U07.1 COVID-19 (principal); I50.43 Acute on chronic combined systolic (congestive) and diastolic (congestive) heart failure; I48.20 Chronic atrial fibrillation, unspecified; I11.0 Hypertensive heart disease with heart failure; E78.5 Hyperlipidemia, unspecified; R09.02 Hypoxemia; R13.10 Dysphagia, unspecified; R47.81 Slurred speech; R32 Unspecified urinary incontinence; I25.10 Atherosclerotic heart disease of native coronary artery without angina pectoris; I25.5 Ischemic cardiomyopathy; Z95.1 Presence of aortocoronary bypass graft; Z79.01 Long term (current) use of anticoagulants; Z79.82 Long term (current) use of aspirin; Z79.899 Other long term (current) drug therapy; Z87.891 Personal history of nicotine dependence; Z91.81 History of falling; Z82.49 Family history of ischemic heart disease and other diseases of the circulatory system
CPT/HCPCS: 36415; 51798; 70551; 71045; 71046; 74230; 80048; 80053; 80162; 81003; 82607; 82728; 82746; 83519; 83605; 83615; 83735; 83880; 83921; 84145; 84484; 85025; 85379; 85384; 85610; 85730; 86140; 86780; 87040; 87502; 87634; 87635; 93005; 93306; 94640; 94667; 94760; 96360; 96361; 96372; 99285

== ENCOUNTER → 2022-02-03 | Outpatient (CLI) | payer MEDICARE, BC ==
--- NOTE | 2022-02-03 20:26 | NM ---
EXAMINATION TYPE: NM DatScan Brain SPECT DATE OF EXAM: 02/03/2022 COMPARISON: MRI brain October 30, 2021 HISTORY: Tremor. TECHNIQUE: 10 drops of Lugol's solution was administered 1 hour prior to injection as a thyroid bloc deidre agent. After the administration of 4.67 mCi I-123 Ioflupane DaTscan. Images obtained 3 hours p ost injection. SPECT images of the brain were acquired with axial and coronal reconstructions. FINDINGS: The DaTSCAN demonstrates reduced uptake of tracer throughout the striata. This appearance is consistent with the bilateral loss of the pre-synaptic dopaminergic terminals. 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
== END | disposition home or self-care (01) ==
LOC: RADNMMAIN 10:18
PROVIDERS: ATTEND Psychiatry & Neurology Neurology
DX: R25.1 Tremor, unspecified (principal)
CPT/HCPCS: 82550; 78803; A9584

== ENCOUNTER → 2022-08-07 | Outpatient (CLI) | payer MEDICARE, BC ==
--- NOTE | 2022-08-07 22:35 | MR ---
EXAMINATION TYPE: MR cervical spine wo con DATE OF EXAM: 08/07/2022 INDICATION: Patient age: Male; 87 years old; Reason for study: R27.0 ataxia. Leg weakness, ataxia COMPARISON: TECHNIQUE: Multi planar, multi sequence imaging was performed utilizing: T1-weighted, T2-weighted, an d turbo inversion recovery imaging of the cervical spine. IV Contrast: None FINDINGS: Alignment: The cervical vertebral bodies have preserved heights. There is straightening of the alignm ent. Bones: No suspicious bony edema on inversion recovery sequences there is degeneration changes al tasha the adjoining endplates of the spine. Cord: The spinal cord is unremarkable with regards to their signal intensity and morphology. 2. Discs: Multilevel disc desiccation is present. C2-C3: A disc osteophyte complex is present which minimally narrows the ventral subarachnoid space. Bilateral facet and uncovertebral joint arthropathy are present with mild bilateral neural foraminal stenosis. C3-C4: No significant disc pathology. The spinal canal is patent. Bilateral facet and uncovertebral joint arthropathy are present with moderate bilateral neural foraminal stenosis. C4-C5: A disc osteophyte complex is present with mild spinal canal stenosis. Bilateral facet and unc overtebral joint arthropathy are present with moderate left and mild right neural foraminal stenosis. C5-C6: A disc osteophyte complex is present with mild spinal canal stenosis. Bilateral facet and unc overtebral joint arthropathy are present with moderate left and mild right neural foraminal stenosis. C6-C7: No significant disc pathology. The spinal canal is patent. Bilateral facet and uncovertebral joint arthropathy are present with moderate bilateral neural foraminal stenosis. C7-T1: No significant disc pathology. The spinal canal is patent. No neural foraminal stenosis. Other: None. IMPRESSION: Multilevel disc degeneration with associated osteoarthritic changes with multilevel neural foraminal stenosis as described above. No significant spinal canal stenosis visualized.
== END | disposition home or self-care (01) ==
LOC: RADMRIMAIN 13:21
PROVIDERS: ATTEND Psychiatry & Neurology Neurology
DX: M48.02 Spinal stenosis, cervical region (principal); M47.812 Spondylosis without myelopathy or radiculopathy, cervical region; M50.31 Other cervical disc degeneration, high cervical region; M25.78 Osteophyte, vertebrae; R27.0 Ataxia, unspecified
CPT/HCPCS: 72141

== ENCOUNTER → 2022-08-07 | Outpatient (CLI) | payer MEDICARE, BC | END | disposition home or self-care (01) | LOC: LABWHC1 12:13 | PROVIDERS: ATTEND Psychiatry & Neurology Neurology | DX: G72.9 Myopathy, unspecified (principal); R53.1 Weakness | CPT/HCPCS: 36415; 82550; 82607 ==

== ENCOUNTER → 2023-04-29 | Outpatient (CLI) | payer MEDICARE, BC ==
--- NOTE | 2023-04-29 15:06 | US ---
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 Indirect Doppler criteria was utilized. FINDINGS: EXAM MEASUREMENTS: RIGHT: Peak Systolic Velocity (PSV) cm/sec ----- Right CCA: 49 ----- Right ICA: 45 ----- Right ECA: 88 ICA/CCA ratio: 0.9 RIGHT: End Diastole cm/sec ----- Right CCA: 11 ----- Right ICA: 14 ----- Right ECA: 09 LEFT: Peak Systolic Velocity (PSV) cm/sec ----- Left CCA: 60 ----- Left ICA: 65 ----- Left ECA: 69 ICA/CCA ratio: 1.1 LEFT: End Diastole cm/sec ----- Left CCA: 13 ----- Left ICA: 25 ----- Left ECA: 13 VERTEBRALS (direction of flow): Right Vertebral: Antegrade Left Vertebral: Antegrade Rhythm: Arrhythmia OPTOMECHANICAL ENGINEER NOTES: Bilateral CCA Bulb stents noted. Plaque noted bilaterally. No intimal thickening o r elevated velocities noted IMPRESSION: 1. There are no elevated velocities, however there is significant areas of plaque seen within the dis compa internal carotid artery on the left side which show visible significant areas of stenosis. Scatte red additional moderate areas of stenosis are seen throughout the carotid arteries bilaterally. Criteria for Assigning % of Stenosis / Diameter reduction (Estimation based on the indirect measurements of the internal carotid artery velocities (ICA PSV). 1. Normal (no stenosis)=ICA PSV < 125 cm/s: ratio < 2.0: ICA EDV<40 cm/s. 2. Less than 50% stenosis=ICA PSV < 125 cm/s: ratio < 2.0: ICA EDV<40 cm/s. 3. 50 to 69% stenosis=ICA PSV of 125 to 230 cm/s: ration 2.0 ? 4.0: ICA EDV 40-100 cm/s. 4. Greater than 70% stenosis to near occlusion= ICA PSV > 230 cm/s: ratio > 4.0: ICA EDV > 100 cm/s. 5. Near occlusion= ICA PSV velocities may be low or undetectable: variable ratio and ICA EDV. 6. Total occlusion=unable to detect flow.
== END | disposition home or self-care (01) ==
LOC: RADUSWWP 14:03
PROVIDERS: ATTEND Internal Medicine Cardiovascular Disease
DX: I65.23 Occlusion and stenosis of bilateral carotid arteries (principal)
CPT/HCPCS: 93880

== ENCOUNTER 2023-05-05 00:35 | Emergency (ER) | payer MEDICARE, BC ==
[2023-05-05 00:59] VITALS: PULSE 75; RESP 16; TEMP 96.8
--- NOTE | 2023-05-05 01:26 | CT ---
EXAMINATION TYPE: CT brain cspine wo con DATE OF EXAM: 05/05/2023 COMPARISON: MRI cervical spine August 07, 2022. MRI brain October 30, 2021 HISTORY: fall from standing, hit head on wall. 2 inch lac bleeding controlled. on plavix CT DLP: 1447.9 mGycm. Automated Exposure Control for Dose Reduction was Utilized. TECHNIQUE: CT scan of the head and cervical spine are performed without contrast. FINDINGS: There is no acute intracranial hemorrhage or midline shift identified. Mild to moderate v entricular and sulcal prominence. Mild/moderate low attenuation in periventricular white matter. Bila teral aphakia is present. Soft tissue density consistent with cerumen is seen in the left external au ditory canal. The visualized sinuses are clear. The calvarium is intact. Cervical spine is visualized in its entirety from C1 through upper thoracic levels and redemonstrates loss of normal cervical curvature centered mid cervical spine without evidence of acute fracture or dislocation. Prevertebral soft tissue appears within normal limits. The C1-C2 articulation is withi n normal limits on the coronal images. Vertebral body heights are maintained. There is some ossific fusion at C4-C5 level. There is advanced disc space narrowing at C5-C6 through C7-T1 levels. Axial im ages we demonstrate multilevel uncovertebral and facet degenerative changes bilaterally. Thyroid glan d is within normal limits. Lung apices show no pneumothorax bilaterally. Sternal wires are partially imaged. Left carotid bulb stent is suspected. IMPRESSION: 1. There is no acute fracture or dislocation evident in the cervical spine. 2. No acute intracranial hemorrhage or midline shift is seen.
--- NOTE | 2023-05-05 01:35 | ED ---
General Adult HPI - General Chief complaint: Fall Stated complaint: Fall on thinners Time Seen by Provider: 05/05/23 00:37 Source: patient, EMS, RN notes reviewed, old records reviewed Mode of arrival: EMS Limitations: no limitations - History of Present Illness Initial comments: 88-year-old male presents with [facility]. Patient states he stood after using the restroom fell striking the back of his head. He denies loss consciousness. He does have history of Parkinson's and states he is unsteady on his feet. He denies headache. Denies neck pain. Denies chest or abdominal pain. - Related Data Home Medications Medication Instructions Recorded Confirmed Apixaban [Eliquis] 5 mg PO BID@08,199910/27/21 10/27/21 Atorvastatin [Lipitor] 40 mg PO HS@199910/27/21 10/27/21 Famotidine [Pepcid] 20 mg PO HS@199910/27/21 10/27/21 Furosemide [Lasix] 40 mg PO DAILY@79910/27/21 10/27/21 Omeprazole 20 mg PO DAILY@79910/27/21 10/27/21 Potassium Chloride ER [K-Dur 20] 20 meq PO DAILY@79910/27/21 10/27/21 Previous Rx's Medication Instructions Recorded Acetaminophen Tab [Tylenol] 650 mg PO Q4HR PRN tab 10/30/21 Albuterol Inhaler [Ventolin Hfa 2 puff INHALATION RT-Q6H PRN each 10/30/21 Inhaler] Aspirin 81 mg PO DAILY tab 10/30/21 Ibuprofen [Advil] 200 mg PO Q4HR PRN tab 10/30/21 guaiFENesin [Mucinex] 600 mg PO Q12HR tab 10/30/21 Carbidopa-Levodopa 25-100 mg 1 each PO TID #90 tab 11/03/21 [Sinemet 25-100] Albuterol Inhaler [Ventolin Hfa 2 puff INHALATION Q6H PRN 30 Days 11/04/21 Inhaler] #1 unit Aspirin 81 mg PO DAILY 30 Days #30 tab 11/04/21 Allergies Allergy/AdvReac Type Severity Reaction Status Date / Time No Known Allergies Allergy Verified 10/27/21 09:49 Review of Systems ROS Statement: Those systems with pertinent positive or pertinent negative responses have been documented in the HPI. ROS Other: All systems not noted in ROS Statement are negative. Past Medical History Past Medical History: Atrial Fibrillation, Heart Failure, GERD/Reflux, Hyperlipidemia, Hypertension History of Any Multi-Drug Resistant Organisms: None Reported Past Surgical History: Coronary Bypass/CABG Past Anesthesia/Blood Transfusion Reactions: Unable to Obtain Past Psychological History: No Psychological Hx Reported Smoking Status: Former smoker Past Alcohol Use History: None Reported Past Drug Use History: None Reported - Past Family History Family Family Medical History: Coronary Artery Disease (CAD) General Exam Limitations: no limitations General appearance: alert, in no apparent distress Head exam: Present: other (3 cm occipital scalp laceration) Eye exam: Present: normal appearance, PERRL ENT exam: Present: normal exam. Absent: normal oropharynx Neck exam: Present: normal inspection. Absent: tenderness, meningismus Respiratory exam: Present: normal lung sounds bilaterally. Absent: respiratory distress, wheezes Cardiovascular Exam: Present: regular rate, irregular rhythm GI/Abdominal exam: Present: soft. Absent: distended, tenderness Extremities exam: Present: full ROM, normal capillary refill, pedal edema. Absent: tenderness Neurological exam: Present: alert, oriented X3, CN II-XII intact. Absent: motor sensory deficit Psychiatric exam: Present: normal affect, normal mood Skin exam: Present: warm, dry Course Vital Signs 05/05/23 00:37 Temperature 96.8 F L Pulse Rate 75 Respiratory 16 Rate Blood Pressure 126/77 O2 Sat by Pulse 95 Oximetry Procedures - Laceration Laceration #1 Consent Obtained: verbal consent Indication: laceration Site: scalp Size (cm): 3 Description: linear Depth: simple, single layer Pre-repair: irrigated extensively, deep structures intact Type of Sutures: other (Maria Victoria) Number of Sutures: 5 Technique: simple, interrupted Patient Tolerated Procedure: well Medical Decision Making - Medical Decision Making Was pt. sent in by a medical professional or institution (, PA, EDUCATION AND OUTREACH COORDINATOR, urgent care, hospital, or jail...) When possible be specific @ -No Did you speak to anyone other than the patient for history (EMS, parent, family, police, friend...)? What history was obtained from this source @ -No Did you review nursing and triage notes (agree or disagree)? Why? @ -I reviewed and agree with nursing and triage notes Were old charts reviewed (outside hosp., previous admission, EMS record, old EKG, old radiological studies, urgent care reports/EKG's, jail records)? Report findings @ -No old charts were reviewed Differential Diagnosis (chest pain, altered mental status, abdominal pain women, abdominal pain men, vaginal bleeding, weakness, fever, dyspnea, syncope, headache, dizziness, GI bleed, back pain, seizure, CVA, palpatations, mental health, musculoskeletal)? @ -[Intracranial hemorrhage, scalp laceration, cervical spine fracture or subluxation, traumatic injury from fall. EKG interpreted by me (3pts min.). @ -As above X-rays interpreted by me (1pt min.). @ -None done CT interpreted by me (1pt min.). @ -[CT brain negative for intracranial hemorrhage or mass effect, CT cervical spine with degenerative changes without fracture or subluxation. U/S interpreted by me (1pt. min.). @ -None done What testing was considered but not performed or refused? (CT, X-rays, U/S, labs)? Why? @ -None What meds were considered but not given or refused? Why? @ -None Did you discuss the management of the patient with other professionals (professionals i.e. , PA, EDUCATION AND OUTREACH COORDINATOR, lab, RT, psych nurse, social media analyst, lining inserter, teacher, booking officer, residential case manager)? Give summary @ -No Was smoking cessation discussed for >3mins.? @ -No Was critical care preformed (if so, how long)? @ -No Were there social determinants of health that impacted care today? How? (Homelessness, low income, unemployed, alcoholism, drug addiction, transportation, low edu. Level, literacy, decrease access to med. care, intermediate, rehab)? @ -No Was there de-escalation of care discussed even if they declined (Discuss DNR or withdrawal of care, Hospice)? DNR status @ -No What co-morbidities impacted this encounter? (DM, HTN, Smoking, COPD, CAD, Cancer, CVA, ARF, Chemo, Hep., AIDS, mental health diagnosis, sleep apnea, morbid obesity)? @Parkinson's, unsteady gait Was patient admitted / discharged? Hospital course, mention meds given and route, prescriptions, significant lab abnormalities, going to OR and other pertinent info. @ -[88-year-old male status post fall with occipital head trauma. No loss conscious. Patient has 3 cm laceration which is repaired with 5 maria victoria. He has no complaints and he is eager to return to his residence. Undiagnosed new problem with uncertain prognosis? @ -No Drug Therapy requiring intensive monitoring for toxicity (Heparin, Nitro, Insulin, Cardizem)? @ -No Were any procedures done? @ -Yes, laceration repair Diagnosis/symptom? @ -Fall, occipital scalp laceration Acute, or Chronic, or Acute on Chronic? @ -Acute Uncomplicated (without systemic symptoms) or Complicated (systemic symptoms)? @ -Default Side effects of treatment? @ -No Exacerbation, Progression, or Severe Exacerbation? @ -No Poses a threat to life or bodily function? How? (Chest pain, [place], [place], pneumonia, PE, COPD, DKA, ARF, appy, cholecystitis, CVA, Diverticulitis, Homicidal, Suicidal, threat to staff... and all critical care pts) @ -[Moderate risk, frequent falls in the elderly Disposition Clinical Impression: Fall, Scalp laceration Disposition: HOME SELF-CARE Condition: Fair Instructions (If sedation given, give patient instructions): Laceration (ED), Fall Prevention for Older Adults (ED), Staple Care (ED) Additional Instructions: Please have maria victoria removed in 12 to 14 days Is patient prescribed a controlled substance at d/c from ED?: No Referrals: Tobias Darby MD [Primary Care Provider] - 1-2 days Time of Disposition: 01:47
[2023-05-05 02:12] VITALS: BP 128/72
== END 2023-05-05 02:23 | disposition home or self-care (01) ==
LOC: EC 00:35
DX: S01.01XA Laceration without foreign body of scalp, initial encounter (principal); Z87.891 Personal history of nicotine dependence; W18.30XA Fall on same level, unspecified, initial encounter
CPT/HCPCS: 12002; 70450; 72125; 99284

== ENCOUNTER 2023-05-07 13:42 | Inpatient (IN) | payer MEDICARE, BC ==
--- NOTE | 2023-05-07 14:21 | ED ---
Weakness HPI - General Chief complaint: Weakness Stated complaint: ams Time Seen by Provider: 05/07/23 13:50 Source: family, EMS Mode of arrival: EMS Limitations: physical limitation - History of Present Illness Initial comments: 88-year-old male who presents to the emergency department from [facility]. Patient lives in independent apartment but does have staff that checks on him. Recently over the past week and a half the patient has had 9 falls. He states it is because he is ataxic and loses his balance. Patient did have multiple head injuries. Last head injury was on Wednesday when the patient was transported to the hospital and required 5 maria victoria. He does have a history of Parkinson's disease. Recently had medication adjustments. He was placed on tramadol for shoulder pain in March. He was also recently started back on his Sinemet as patient patient was not compliant in the past. His Celexa was also changed to L exapro as his neurologist noted that the patient was having some dysarthria. Upon transport to the hospital the transferring facility noted that the patient has had some issues with his blood pressure. Patient denies any recent illnesses. No fevers. Denies any urinary complaints. No other alleviating, precipitating modifying factors - Related Data Home Medications Medication Instructions Recorded Confirmed Atorvastatin [Lipitor] 40 mg PO DAILY 10/27/21 05/07/23 Famotidine [Pepcid] 20 mg PO HS 10/27/21 05/07/23 Furosemide [Lasix] 40 mg PO DAILY@0800 10/27/21 05/07/23 Omeprazole 20 mg PO DAILY 10/27/21 05/07/23 Potassium Chloride ER [K-Dur 20] 20 meq PO DAILY 10/27/21 05/07/23 Acetaminophen Tab [Tylenol] 650 mg PO Q6H PRN 05/07/23 05/07/23 Carbidopa-Levodopa 25-100 mg 1 tab PO TID@0800,1300,1800 05/07/23 05/07/23 [Sinemet 25-100] Cholecalciferol [Vitamin D3 (125 125 mcg PO DAILY 05/07/23 05/07/23 Mcg = 5000 Iu)] Clopidogrel [Plavix] 75 mg PO DAILY 05/07/23 05/07/23 Divalproex [Depakote] 250 mg PO BID 05/07/23 05/07/23 Escitalopram [Lexapro] 10 mg PO DAILY 05/07/23 05/07/23 Lidocaine 4% Patch 1 patch TOPICAL DAILY PRN 05/07/23 05/07/23 Metoprolol Succinate (ER) [Toprol 25 mg PO DAILY 05/07/23 05/07/23 Xl] Mupirocin 2% Oint [Bactroban 2% 1 applic TOPICAL BID 05/07/23 05/07/23 Oint] Sacubitril/Valsartan [Entresto 24 1 tab PO BID 05/07/23 05/07/23 mg-26 mg Tablet] hydrALAZINE HCL [Apresoline] 25 mg PO TID 05/07/23 05/07/23 traMADol HCL 50 mg PO TID 05/07/23 05/07/23 Previous Rx's Medication Instructions Recorded Albuterol Inhaler [Ventolin Hfa 2 puff INHALATION RT-Q6H PRN each 10/30/21 Inhaler] Aspirin 81 mg PO DAILY tab 10/30/21 Ibuprofen [Advil] 200 mg PO Q4HR PRN tab 10/30/21 guaiFENesin [Mucinex] 600 mg PO Q12HR tab 10/30/21 Allergies Allergy/AdvReac Type Severity Reaction Status Date / Time No Known Allergies Allergy Verified 10/27/21 09:49 Review of Systems ROS Statement: Those systems with pertinent positive or pertinent negative responses have been documented in the HPI. ROS Other: All systems not noted in ROS Statement are negative. Past Medical History Past Medical History: Atrial Fibrillation, Heart Failure, GERD/Reflux, Hyperlipidemia, Hypertension History of Any Multi-Drug Resistant Organisms: None Reported Past Surgical History: Coronary Bypass/CABG Past Anesthesia/Blood Transfusion Reactions: Unable to Obtain Past Psychological History: No Psychological Hx Reported Smoking Status: Former smoker Past Alcohol Use History: None Reported Past Drug Use History: None Reported - Past Family History Family Family Medical History: Coronary Artery Disease (CAD) General Exam Limitations: physical limitation General appearance: alert, in no apparent distress Head exam: Present: other (healing linear posterior scar left occiput - [address]) Eye exam: Present: normal appearance, PERRL, EOMI. Absent: scleral icterus, conjunctival injection, periorbital swelling ENT exam: Present: normal exam, mucous membranes moist Neck exam: Present: normal inspection. Absent: tenderness, meningismus, lymphadenopathy Respiratory exam: Present: normal lung sounds bilaterally. Absent: respiratory distress, wheezes, rales, rhonchi, stridor Cardiovascular Exam: Present: regular rate, normal rhythm, normal heart sounds. Absent: systolic murmur, diastolic murmur, rubs, gallop, clicks GI/Abdominal exam: Present: soft, normal bowel sounds. Absent: distended, tenderness, guarding, rebound, rigid Extremities exam: Present: other (5/5 muscle strength b/l upper and lower extremities. ) Neurological exam: Present: alert, other (mild dysarthria) Psychiatric exam: Present: flat affect Skin exam: Present: warm Course Vital Signs 05/07/23 05/07/23 05/07/23 13:48 14:00 14:04 Temperature 97.5 F L Pulse Rate 67 65 Pulse Rate [ 67 Income Tax Manager ] Respiratory 18 18 Rate Blood Pressure 143/89 126/85 Blood Pressure [Right Arm] O2 Sat by Pulse 95 95 Oximetry 05/07/23 05/07/23 05/07/23 15:00 16:00 17:00 Temperature Pulse Rate 66 68 65 Pulse Rate [ Income Tax Manager ] Respiratory 18 18 18 Rate Blood Pressure 119/75 121/71 138/84 Blood Pressure [Right Arm] O2 Sat by Pulse 94 L 91 L 94 L Oximetry 05/07/23 05/07/23 05/07/23 18:00 20:51 21:24 Temperature 97.8 F Pulse Rate 71 72 Pulse Rate [ 79 Income Tax Manager ] Respiratory 18 18 18 Rate Blood Pressure 142/76 136/84 Blood Pressure 147/83 [Right Arm] O2 Sat by Pulse 96 96 94 L Oximetry Medical Decision Making - Medical Decision Making Was pt. sent in by a medical professional or institution (, PA, SHIP RIGGER, urgent care, hospital, or [place] health care facility...) When possible be specific @ -[facility] Did you speak to anyone other than the patient for history (EMS, parent, family, police, friend...)? What history was obtained from this source @ -Niece in room, EMS, daughter in law and son by phone Did you review nursing and triage notes (agree or disagree)? Why? @ -I reviewed and agree with nursing and triage notes Were old charts reviewed (outside hosp., previous admission, EMS record, old EKG, old radiological studies, urgent care reports/EKG's, [place] health care facility records)? Report findings @ -No old charts were reviewed Differential Diagnosis (chest pain, altered mental status, abdominal pain women, abdominal pain men, vaginal bleeding, weakness, fever, dyspnea, syncope, hea dache, dizziness, GI bleed, back pain, seizure, CVA, palpatations, mental health, musculoskeletal)? @ -Exacerbation of Parkinson's, medication side effect, UTI, pneumonia, influenza EKG interpreted by me (3pts min.). @ -Yes and demonstrates A-fib with a rate of 67. QRS 79. QTc of 435. No acute ST segment elevations or depressions X-rays interpreted by me (1pt min.). @ -Yes and demonstrates no acute process CT interpreted by me (1pt min.). @ -None done U/S interpreted by me (1pt. min.). @ -None done What testing was considered but not performed or refused? (CT, X-rays, U/S, labs)? Why? @ -CT brain was considered however patient just had 1 due to his fall What meds were considered but not given or refused? Why? @ -None Did you discuss the management of the patient with other professionals (professionals i.e. , PA, SHIP RIGGER, lab, RT, psych nurse, social media marketing specialist, reclamation supervisor, teacher, home school liaison officer, case management manager)? Give summary @ -Dr. Maloney and Dr. Carlson Was smoking cessation discussed for >3mins.? @ -No Was critical care preformed (if so, how long)? @ -No Were there social determinants of health that impacted care today? How? (Homelessness, low income, unemployed, alcoholism, drug addiction, transportation, low edu. Level, literacy, decrease access to med. care, custodial, rehab)? @ -No Was there de-escalation of care discussed even if they declined (Discuss DNR or withdrawal of care, Hospice)? DNR status @ -No What co-morbidities impacted this encounter? (DM, HTN, Smoking, COPD, CAD, Cancer, CVA, ARF, Chemo, Hep., AIDS, mental health diagnosis, sleep apnea, morbid obesity)? @ -Parkinson Was patient admitted / discharged? Hospital course, mention meds given and route, prescriptions, significant lab abnormalities, going to OR and other pertinent info. @ -Admitted. Upon arrival patient was placed into room 25. Thorough history and physical exam was performed. IV is established. Laboratory studies are conducted. Chest x-ray was performed. Results are discussed with the patient. Patient did not want to stay and therefore he is can be discharged home. I did call family and they do disclose that the patient has had 9 falls recently. States that they are concerned about medication side effect or worsening of his Parkinson's. They do not feel it is safe for the patient to be home with the amount of falls that he is having. I did discuss this with Dr. Maloney. Agreeable to admit the patient for observation. I will place neurology on consult. Patient transported to the floor in stable condition Undiagnosed new problem with uncertain prognosis? @ -Yes Drug Therapy requiring intensive monitoring for toxicity (Heparin, Nitro, Insulin, Cardizem)? @ -No Were any procedures done? @ -No Diagnosis/symptom? @ -Acute ataxia, multiple falls, history of Parkinson's Acute, or Chronic, or Acute on Chronic? @ -Acute Uncomplicated (without systemic symptoms) or Complicated (systemic symptoms)? @ -Complicated Side effects of treatment? @ -No Exacerbation, Progression, or Severe Exacerbation? @ -No Poses a threat to life or bodily function? How? (Chest pain, [place], [place], pneumonia, PE, COPD, DKA, ARF, appy, cholecystitis, CVA, Diverticulitis, Homicidal, Suicidal, threat to staff... and all critical care pts) @ -No - Lab Data Result diagrams: 05/08/23 05:11 05/07/23 14:41 Lab Results 05/07/23 05/07/23 05/07/23 Range/Units 14:41 14:41 14:41 WBC 7.5 (3.8-10.6) k/uL RBC 3.65 L (4.30-5.90) m/uL Hgb 12.4 L (13.0-17.5) gm/dL Hct 37.0 L (39.0-53.0) % MCV 101.2 H (80.0-100.0) fL MCH 34.0 (25.0-35.0) pg MCHC 33.6 (31.0-37.0) g/dL RDW 12.3 (11.5-15.5) % Plt Count 258 (150-450) k/uL MPV 7.7 Neutrophils % 55 % Lymphocytes % 30 % Monocytes % 9 % Eosinophils % 3 % Basophils % 1 % Neutrophils # 4.1 (1.3-7.7) k/uL Lymphocytes # 2.2 (1.0-4.8) k/uL Monocytes # 0.6 (0-1.0) k/uL Eosinophils # 0.3 (0-0.7) k/uL Basophils # 0.1 (0-0.2) k/uL PT 11.3 (10.0-12.5) sec INR 1.0 (<1.2) APTT 26.9 (22.0-30.0) sec Sodium 136 L (137-145) mmol/L Potassium 4.4 (3.5-5.1) mmol/L Chloride 104 (98-107) mmol/L Carbon Dioxide 28 (22-30) mmol/L Anion Gap 4 mmol/L BUN 17 (9-20) mg/dL Creatinine 0.73 (0.66-1.25) mg/dL Est GFR (CKD-EPI)AfAm >90 (>60 ml/min/1.73 sqM) Est GFR (CKD-EPI)NonAf 82 (>60 ml/min/1.73 sqM) Glucose 84 (74-99) mg/dL Estimated Ave Glu mg/dL mg/dL Hemoglobin A1c (<=6.0) % Plasma Lactic Acid Matty (0.7-2.0) mmol/L Calcium 8.9 (8.4-10.2) mg/dL Magnesium 2.2 (1.6-2.3) mg/dL Total Bilirubin 0.8 (0.2-1.3) mg/dL AST 21 (17-59) U/L ALT 6 (4-49) U/L Alkaline Phosphatase 83 (38-126) U/L Troponin I (0.000-0.034) ng/mL NT-Pro-B Natriuret Pep 1040 pg/mL Total Protein 5.9 L (6.3-8.2) g/dL Albumin 3.6 (3.5-5.0) g/dL TSH 1.160 (0.465-4.680) mIU/L Urine Color Urine Appearance (Clear) Urine pH (5.0-8.0) Ur Specific [place] (1.001-1.035) Urine Protein (Negative) Urine Glucose (UA) (Negative) Urine Ketones (Negative) Urine Blood (Negative) Urine Nitrite (Negative) Urine Bilirubin (Negative) Urine Urobilinogen (<2.0) mg/dL Ur Leukocyte Esterase (Negative) Valproic Acid ug/mL Influenza Type A (PCR) (Not Detectd) Influenza Type B (PCR) (Not Detectd) RSV (PCR) (Not Detectd) SARS-CoV-2 (PCR) (Not Detectd) 05/07/23 05/07/23 05/07/23 Range/Units 14:41 14:41 14:41 WBC (3.8-10.6) k/uL RBC (4.30-5.90) m/uL Hgb (13.0-17.5) gm/dL Hct (39.0-53.0) % MCV (80.0-100.0) fL MCH (25.0-35.0) pg MCHC (31.0-37.0) g/dL RDW (11.5-15.5) % Plt Count (150-450) k/uL MPV Neutrophils % % Lymphocytes % % Monocytes % % Eosinophils % % Basophils % % Neutrophils # (1.3-7.7) k/uL Lymphocytes # (1.0-4.8) k/uL Monocytes # (0-1.0) k/uL Eosinophils # (0-0.7) k/uL Basophils # (0-0.2) k/uL PT (10.0-12.5) sec INR (<1.2) APTT (22.0-30.0) sec Sodium (137-145) mmol/L Potassium (3.5-5.1) mmol/L Chloride (98-107) mmol/L Carbon Dioxide (22-30) mmol/L Anion Gap mmol/L BUN (9-20) mg/dL Creatinine (0.66-1.25) mg/dL Est GFR (CKD-EPI)AfAm (>60 ml/min/1.73 sqM) Est GFR (CKD-EPI)NonAf (>60 ml/min/1.73 sqM) Glucose (74-99) mg/dL Estimated Ave Glu mg/dL mg/dL Hemoglobin A1c (<=6.0) % Plasma Lactic Acid Matty 1.3 (0.7-2.0) mmol/L Calcium (8.4-10.2) mg/dL Magnesium (1.6-2.3) mg/dL Total Bilirubin (0.2-1.3) mg/dL AST (17-59) U/L ALT (4-49) U/L Alkaline Phosphatase (38-126) U/L Troponin I 0.015 (0.000-0.034) ng/mL NT-Pro-B Natriuret Pep pg/mL Total Protein (6.3-8.2) g/dL Albumin (3.5-5.0) g/dL TSH (0.465-4.680) mIU/L Urine Color Colorless Urine Appearance Clear (Clear) Urine pH 6.0 (5.0-8.0) Ur Specific [place] 1.010 (1.001-1.035) Urine Protein Negative (Negative) Urine Glucose (UA) Negative (Negative) Urine Ketones Negative (Negative) Urine Blood Negative (Negative) Urine Nitrite Negative (Negative) Urine Bilirubin Negative (Negative) Urine Urobilinogen <2.0 (<2.0) mg/dL Ur Leukocyte Esterase Negative (Negative) Valproic Acid ug/mL Influenza Type A (PCR) (Not Detectd) Influenza Type B (PCR) (Not Detectd) RSV (PCR) (Not Detectd) SARS-CoV-2 (PCR) (Not Detectd) 05/07/23 05/07/23 05/07/23 Range/Units 14:41 14:41 14:41 WBC (3.8-10.6) k/uL RBC (4.30-5.90) m/uL Hgb (13.0-17.5) gm/dL Hct (39.0-53.0) % MCV (80.0-100.0) fL MCH (25.0-35.0) pg MCHC (31.0-37.0) g/dL RDW (11.5-15.5) % Plt Count (150-450) k/uL MPV Neutrophils % % Lymphocytes % % Monocytes % % Eosinophils % % Basophils % % Neutrophils # (1.3-7.7) k/uL Lymphocytes # (1.0-4.8) k/uL Monocytes # (0-1.0) k/uL Eosinophils # (0-0.7) k/uL Basophils # (0-0.2) k/uL PT (10.0-12.5) sec INR (<1.2) APTT (22.0-30.0) sec Sodium (137-145) mmol/L Potassium (3.5-5.1) mmol/L Chloride (98-107) mmol/L Carbon Dioxide (22-30) mmol/L Anion Gap mmol/L BUN (9-20) mg/dL Creatinine (0.66-1.25) mg/dL Est GFR (CKD-EPI)AfAm (>60 ml/min/1.73 sqM) Est GFR (CKD-EPI)NonAf (>60 ml/min/1.73 sqM) Glucose (74-99) mg/dL Estimated Ave Glu mg/dL 111 mg/dL Hemoglobin A1c 5.5 (<=6.0) % Plasma Lactic Acid Matty (0.7-2.0) mmol/L Calcium (8.4-10.2) mg/dL Magnesium (1.6-2.3) mg/dL Total Bilirubin (0.2-1.3) mg/dL AST (17-59) U/L ALT (4-49) U/L Alkaline Phosphatase (38-126) U/L Troponin I (0.000-0.034) ng/mL NT-Pro-B Natriuret Pep pg/mL Total Protein (6.3-8.2) g/dL Albumin (3.5-5.0) g/dL TSH (0.465-4.680) mIU/L Urine Color Urine Appearance (Clear) Urine pH (5.0-8.0) Ur Specific [place] (1.001-1.035) Urine Protein (Negative) Urine Glucose (UA) (Negative) Urine Ketones (Negative) Urine Blood (Negative) Urine Nitrite (Negative) Urine Bilirubin (Negative) Urine Urobilinogen (<2.0) mg/dL Ur Leukocyte Esterase (Negative) Valproic Acid 41.5 ug/mL Influenza Type A (PCR) Not Detected (Not Detectd) Influenza Type B (PCR) Not Detected (Not Detectd) RSV (PCR) Not Detected (Not Detectd) SARS-CoV-2 (PCR) Not Detected (Not Detectd) Disposition Clinical Impression: Falls, Ataxia, Parkinson disease Disposition: ADMITTED IP TO THIS HOSP Condition: Stable Is patient prescribed a controlled substance at d/c from ED?: No Time of Disposition: 17:38 Decision to Admit Reason: Admit from EC Decision Date: 05/07/23 Decision Time: 17:38
[2023-05-07 14:52] LABS: Basophils # (A) 0.1 k/uL (0-0.2); Basophils % (A) 1 %; Eosinophils # (A) 0.3 k/uL (0-0.7); Eosinophils % (A) 3 %; HGB 12.4 gm/dL (13.0-17.5); Lymphocytes # (A) 2.2 k/uL (1.0-4.8); Lymphocytes % (A) 30 %; MCHC 33.6 g/dL (31.0-37.0); MCV 101.2 fL (80.0-100.0); Mean Platelet Volume 7.7; Monocytes # (A) 0.6 k/uL (0-1.0); Monocytes % (A) 9 %; Neutrophils # (A) 4.1 k/uL (1.3-7.7); Neutrophils % (A) 55 %; Platelet Count 258 k/uL (150-450); RBC 3.65 m/uL (4.30-5.90); RDW 12.3 % (11.5-15.5); WBC 7.5 k/uL (3.8-10.6)
[2023-05-07 14:55] LABS: Appearance,Urine Clear (Clear); Bilirubin,Urine Negative (Negative); Blood,Urine Negative (Negative); Color,Urine Colorless; Glucose,Urine (UA) Negative (Negative); Ketones,Urine Negative (Negative); Leukocyte Esterase,Urine Negative (Negative); Nitrite,Urine Negative (Negative); Protein,Urine Negative (Negative); Urobilinogen,Urine <2.0 mg/dL (<2.0)
[2023-05-07 15:01] LABS: Partial Thromboplastin Time 26.9 sec (22.0-30.0); Prothrombin Time 11.3 sec (10.0-12.5)
[2023-05-07 15:03] LABS: ALT 6 U/L (4-49); AST 21 U/L (17-59); African American GFR (CKD) >90 (>60 ml/min/1.73 sqM); Albumin 3.6 g/dL (3.5-5.0); Alkaline Phosphatase 83 U/L (38-126); Anion Gap 4 mmol/L; Blood Urea Nitrogen 17 mg/dL (9-20); Calcium 8.9 mg/dL (8.4-10.2); Carbon Dioxide 28 mmol/L (22-30); Chloride 104 mmol/L (98-107); Glucose 84 mg/dL (74-99); Magnesium 2.2 mg/dL (1.6-2.3); Non-African American GFR(CKD) 82 (>60 ml/min/1.73 sqM); Potassium 4.4 mmol/L (3.5-5.1); Sodium 136 mmol/L (137-145); Total Bilirubin 0.8 mg/dL (0.2-1.3); Total Protein 5.9 g/dL (6.3-8.2)
--- NOTE | 2023-05-07 15:05 | XR ---
EXAMINATION TYPE: XR chest 2V DATE OF EXAM: 05/07/2023 COMPARISON: NONE HISTORY: Weakness. TECHNIQUE: Frontal and lateral views of the chest are obtained. FINDINGS: There are midline sternotomy wires and atrial clip. There is no focal air space opacity, p leural effusion, or pneumothorax seen. The cardiac silhouette size is within normal limits. The os seous structures are intact. IMPRESSION: No acute cardiopulmonary process.
[2023-05-07 15:11] LABS: NT-Pro-B-Type Natriuretic Pept 1040 pg/mL
[2023-05-07] MEDS ORDERED: NALOXONE 0.4 MG/ML 1 ML VIAL IV PRN (17:38)
[2023-05-07] MEDS ORDERED: IBUPROFEN 200 MG TAB PO PRN (19:43)
[2023-05-07] MEDS ORDERED: LIDOCAINE 4% PATCH TOPICAL PRN (19:43)
[2023-05-07] MEDS ORDERED: ALBUTEROL HFA INHALER INHALATION PRN (19:43)
[2023-05-07] MEDS: CARBIDOPA-LEVODOPA 25-100 MG 1 EACH TAB PO STA (20:48)
[2023-05-07] MEDS: guaiFENesin 600 MG TABLET.ER PO SCH (20:49)
[2023-05-07] MEDS: FAMOTIDINE 20 MG TAB PO SCH (20:49)
[2023-05-07] MEDS: hydrALAZINE HCL 25 MG TAB PO SCH (21:23)
[2023-05-07] MEDS: SACUBITRIL/VALSARTAN 24 MG-26 MG TABLET PO SCH (21:48)
--- NOTE | 2023-05-07 23:31 | P.HPIM ---
History of Present Illness H&P Date: 05/07/23 Patient is a 88-year-old male resident of an independent living facility with a PMH of Parkinson's, diastolic CHF, coronary artery disease, hypertension, and A- fib not on anticoagulation who presents to the emergency room for multiple falls. Patient reports that over the past 1 week, he has experienced 4 falls where he lost his balance, with most recent fall resulting in a posterior scalp laceration requiring 5 maria victoria on 05/04. Patient notes that his 1 week ago and that he has been having a hard time coping with her . He reports that prior to her passing, that he had been relatively independent with all his ADLs. As per the patient's family, the patient has fallen roughly 9 times in the past 1 to 2 weeks and that several changes were made to his medications. The patient's Celexa was reportedly changed to Lexapro due to concerns for dysarthria. He was also recently started on tramadol in March for shoulder pain. Patient also had wanted to stop taking his Sinemet roughly 2 months ago and was restarted 3 weeks ago due to significant worsening of his parkinsonian symptoms after stopping. Patient denied experiencing loss of consciousness or dizziness. He also denied experiencing chest discomfort, shortness of breath, fever, chills, cough, nausea, vomiting, abdominal pain, dysuria, diarrhea. Chest x-ray in the emergency room was unremarkable. Laboratory evaluation was remarkable for hemoglobin 12.4, MCV one 1.2, proBNP 1040, troponin 0.015, TSH 1 .160, with respiratory viral panel unremarkable with UA unremarkable. ED documentation reviewed and case discussed with ED provider. Review of systems: Pertinent positives and negatives as discussed in HPI, a complete review of systems was performed and all other systems are negative. Physical examination: Vital signs reviewed General: non toxic, no distress, appears at stated age, normal weight Derm: no unusual rashes/lesions, warm Head: Left posterior scalp maria victoria in place, normocephalic, symmetric Eyes: EOMI, no lid lag, anicteric sclera, pupils equal round reactive to light ENT: Nose and ears atraumatic Neck: No cervical lymphadenopathy, trachea midline, supple Mouth: no lip lesion, mucus membranes moist Cardiovascular: S1S2 reg, no murmur, positive dorsalis pedis pulse bilateral, no edema Lungs: CTA bilateral, no rhonchi, no rales, no accessory muscle use Abdominal: soft, nontender to palpation, no guarding Ext: muscle strength 4 out of 5 in all 4 extremities grossly, no gross muscle atrophy, no contractures, Neuro: CN II-XI grossly intact, no gross focal neuro deficits, somewhat masked facies Psych: Alert, oriented, appropriate affect Assessment: Debility and falls in setting of Parkinson's disease Macrocytic anemia Chronic conditions: Diastolic CHF, CAD, hypertension, A-fib Imaging: Chest x-ray in the emergency room was unremarkable. Data Review: Laboratory evaluation was remarkable for hemoglobin 12.4, MCV one 1.2, proBNP 1040, troponin 0.015, TSH 1.160, with respiratory viral panel unremarkable with UA unremarkable. Plan: Neurology consulted Fall precautions Check anemia panel Hold off on home tramadol at this time Continue with remaining home medications DVT prophylaxis: Lovenox subcu The patient is admitted with an anticipated less than 2 midnight stay for evaluation of debility and falls CODE STATUS: Full Code Discussed with: Patient Anticipated discharge place: Home Past Medical History Past Medical History: Atrial Fibrillation, Heart Failure, GERD/Reflux, Hyperlipidemia, Hypertension History of Any Multi-Drug Resistant Organisms: None Reported Past Surgical History: Coronary Bypass/CABG Past Anesthesia/Blood Transfusion Reactions: Unable to Obtain Past Psychological History: No Psychological Hx Reported Smoking Status: Former smoker Past Alcohol Use History: None Reported Past Drug Use History: None Reported - Past Family History Family Family Medical History: Coronary Artery Disease (CAD) Medications and Allergies Home Medications Medication Instructions Recorded Confirmed Type Atorvastatin [Lipitor] 40 mg PO DAILY 10/27/21 05/07/23 History Famotidine [Pepcid] 20 mg PO HS 10/27/21 05/07/23 History Furosemide [Lasix] 40 mg PO DAILY@0800 10/27/21 05/07/23 History Omeprazole 20 mg PO DAILY 10/27/21 05/07/23 History Potassium Chloride ER [K-Dur 20] 20 meq PO DAILY 10/27/21 05/07/23 History Albuterol Inhaler [Ventolin Hfa 2 puff INHALATION RT-Q6H PRN each 10/30/21 05/07/23 Rx Inhaler] Aspirin 81 mg PO DAILY tab 10/30/21 05/07/23 Rx Ibuprofen [Advil] 200 mg PO Q4HR PRN tab 10/30/21 05/07/23 Rx guaiFENesin [Mucinex] 600 mg PO Q12HR tab 10/30/21 05/07/23 Rx Acetaminophen Tab [Tylenol] 650 mg PO Q6H PRN 05/07/23 05/07/23 History Carbidopa-Levodopa 25-100 mg 1 tab PO TID@0800,1300,1800 05/07/23 05/07/23 History [Sinemet 25-100] Cholecalciferol [Vitamin D3 (125 125 mcg PO DAILY 05/07/23 05/07/23 History Mcg = 5000 Iu)] Clopidogrel [Plavix] 75 mg PO DAILY 05/07/23 05/07/23 History Divalproex [Depakote] 250 mg PO BID 05/07/23 05/07/23 History Escitalopram [Lexapro] 10 mg PO DAILY 05/07/23 05/07/23 History Lidocaine 4% Patch 1 patch TOPICAL DAILY PRN 05/07/23 05/07/23 History Metoprolol Succinate (ER) [Toprol 25 mg PO DAILY 05/07/23 05/07/23 History Xl] Mupirocin 2% Oint [Bactroban 2% 1 applic TOPICAL BID 05/07/23 05/07/23 History Oint] Sacubitril/Valsartan [Entresto 24 1 tab PO BID 05/07/23 05/07/23 History mg-26 mg Tablet] hydrALAZINE HCL [Apresoline] 25 mg PO TID 05/07/23 05/07/23 History traMADol HCL 50 mg PO TID 05/07/23 05/07/23 History Allergies Allergy/AdvReac Type Severity Reaction Status Date / Time No Known Allergies Allergy Verified 10/27/21 09:49 Physical Exam Vitals: Vital Signs Temp Pulse Pulse Resp BP BP Pulse Ox 05/07/23 21:24 97.8 F 79 18 147/83 94 L 05/07/23 20:51 72 18 136/84 96 05/07/23 18:00 71 18 142/76 96 05/07/23 17:00 65 18 138/84 94 L 05/07/23 16:00 68 18 121/71 91 L 05/07/23 15:00 66 18 119/75 94 L 05/07/23 14:04 67 05/07/23 14:00 65 18 126/85 95 05/07/23 13:48 97.5 F L 67 18 143/89 95 Intake and Output 05/07/23 05/07/23 05/08/23 14:59 22:59 06:59 Other: Weight 70.307 kg Results CBC & Chem 7: 05/07/23 14:41 05/07/23 14:41 Labs: Abnormal Lab Results - Last 24 Hours (Table) 05/07/23 05/07/23 Range/Units 14:41 14:41 RBC 3.65 L (4.30-5.90) m/uL Hgb 12.4 L (13.0-17.5) gm/dL Hct 37.0 L (39.0-53.0) % MCV 101.2 H (80.0-100.0) fL Sodium 136 L (137-145) mmol/L Total Protein 5.9 L (6.3-8.2) g/dL
[2023-05-08] MEDS: METOPROLOL TARTRATE 25 MG TAB PO STA (03:39)
[2023-05-08 05:48] LABS: Reticulocyte % 1.8 % (0.5-2.0)
[2023-05-08] MEDS: FUROSEMIDE 40 MG TAB PO SCH (08:07)
[2023-05-08] MEDS: ASPIRIN 81 MG PO SCH (08:07)
[2023-05-08] MEDS: ATORVASTATIN 40 MG TAB PO SCH (08:07)
[2023-05-08] MEDS: PANTOPRAZOLE 40 MG TABLET PO SCH (08:07)
[2023-05-08] MEDS: CARBIDOPA-LEVODOPA 25-100 MG 1 EACH TAB PO SCH ×2 (08:07→17:16)
[2023-05-08] MEDS: ENOXAPARIN 40 MG/0.4 ML SYRINGE SQ SCH (08:08)
[2023-05-08] MEDS: CLOPIDOGREL 75 MG TAB PO SCH (08:08)
[2023-05-08] MEDS: CHOLECALCIFEROL 125 MCG (5000 IU) TABLET PO SCH (08:08)
[2023-05-08] MEDS: DIVALPROEX 250 MG TABLET.DR PO SCH (08:08)
[2023-05-08] MEDS: ESCITALOPRAM 10 MG TAB PO SCH (08:09)
[2023-05-08] MEDS: METOPROLOL SUCCINATE (ER) 25 MG TAB.ER.24H PO SCH (08:09)
[2023-05-08] MEDS: POTASSIUM CHLORIDE ER 20 MEQ TAB.ER PO SCH (08:09)
[2023-05-08 09:37] LABS: Basophils # (A) 0.11 X 10*3/uL (0.00-0.10); Basophils % (A) 1.1 %; Eosinophils # (A) 0.21 X 10*3/uL (0.04-0.35); Eosinophils % (A) 2.1 %; HCT 37.5 % (39.6-50.0); HGB 12.4 g/dL (13.0-17.0); Lymphocytes # (A) 2.13 X 10*3/uL (0.90-5.00); Lymphocytes % (A) 21.6 %; MCH 33.2 pg (27.0-32.0); MCHC 33.1 g/dL (32.0-37.0); MCV 100.3 FL (80.0-97.0); Mean Platelet Volume 9.7 FL (9.5-12.2); Monocytes # (A) 1.06 X 10*3/uL (0.20-1.00); Monocytes % (A) 10.8 %; NRBC Per 100 WBC 0 X 10*3/uL (0.00-0.01); Neutrophils % (A) 64.1 %; Platelet Count 262 X 10*3/uL (140-440); RBC 3.74 X 10*6/uL (4.40-5.60); RDW 12.5 % (11.5-14.5); WBC 9.84 X 10*3/uL (4.50-10.00)
--- NOTE | 2023-05-08 12:24 | P.PN ---
Subjective Progress Note Date: 05/08/23 Hospital Course: 88-year-old male resident of an independent living facility with a PMH of Parkinson's, diastolic CHF, coronary artery disease, hypertension, and A-fib not on anticoagulation who presents to the emergency room for multiple falls. Patient reports that over the past 1 week, he has experienced 4 falls where he lost his balance, with most recent fall resulting in a posterior scalp laceratio n requiring 5 maria victoria on 05/04. Chest x-ray in the emergency room was unremarkable. Laboratory evaluation was remarkable for hemoglobin 12.4, MCV one 1.2, proBNP 1040, troponin 0.015, TSH 1.160, with respiratory viral panel unremarkable with UA unremarkable. EKG independently interpreted, shows atrial fibrillation, rate controlled. Patient admitted for increased falls, debility. Subjective: Patient seen and examined at bedside. No acute events overnight. Pertinent positives and negatives as discussed above, a complete review of systems was performed and all other systems are negative. Vitals Signs Reviewed. General: Nontoxic, no distress, appears at stated age Derm: Warm, dry Head: Atraumatic, normocephalic, symmetric Eyes: EOMI, no lid lag, anicteric sclera Mouth: No lip lesion, mucus membranes moist Cardiovascular: S1S2 reg, no murmur Lungs: CTA bilateral, no rhonchi, no rales, no accessory muscle use Abdominal: Soft, nontender to palpation, no guarding, no appreciable orga nomegaly Ext: No gross muscle atrophy, no edema, no contractures Neuro: CN II-XI grossly intact, no focal neuro deficits Psych: Alert, oriented, appropriate affect Data Reviewed Today: Pertinent Labs: Hemoglobin 12.4, valproic acid 41.5, TSH 1.16 Imaging: EKG independently interpreted, shows atrial fibrillation, rate controlled Assessment and Plan: Active: Frequent falls History of Parkinson's disease Concerning for orthostatic hypotension, orthostatic vitals pending Neurology consulted, pending recommendations Continue Sinemet home dose for now Patient is also on Lasix oral 40 daily, hydralazine 25 3 times daily which could increase orthostatic hypotension Patient is currently euvolemic, may need to change Lasix to as needed PT/OT B12 and folic acid level pending Consider echo Chronic: Hypertension CHF, not in exacerbation CAD Atrial fibrillation GERD DVT ppx: Lovenox Code status: Full code Anticipated discharge place: Pending clinical course Anticipated discharge time: Pending clinical course Objective - Vital Signs Vital signs: Vital Signs Temp 98 F 05/08/23 08:00 Pulse 78 05/08/23 08:00 Resp 18 05/08/23 08:00 BP 131/82 05/08/23 08:00 Pulse Ox 95 05/08/23 08:00 FiO2 Intake & Output 05/07/23 05/08/23 05/08/23 18:59 06:59 18:59 Intake Total 120 120 Output Total 400 Balance -280 120 Weight 70.307 kg Intake: Oral 120 120 Output: Urine 400 Other: Voiding Method Urinal Urinal Incontinent Incontinent External Catheter External Catheter - Labs CBC & Chem 7: 05/08/23 05:11 05/07/23 14:41 Labs: Abnormal Lab Results - Last 24 Hours (Table) 05/07/23 05/07/23 05/08/23 Range/Units 14:41 14:41 05:11 RBC 3.65 L 3.74 L (4.30-5.90) m/uL Hgb 12.4 L 12.4 L (13.0-17.5) gm/dL Hct 37.0 L 37.5 L (39.0-53.0) % MCV 101.2 H 100.3 H (80.0-100.0) fL MCH 33.2 H (27.0-32.0) pg Monocytes # 1.06 H (0.20-1.00) X 10*3/uL Basophils # 0.11 H (0.00-0.10) X 10*3/uL Sodium 136 L (137-145) mmol/L Total Protein 5.9 L (6.3-8.2) g/dL
--- NOTE | 2023-05-08 16:20 | P.CNNES ---
History of Present Illness Consult date: 05/08/23 Requesting physician: Jessica Guerrero Reason for Consult: multiple falls, ataxia, hx parkinsons, recent medication change, dysarthria History of Present Illness: This is an 88-year-old gentleman with history of Parkinson's disease with worsening recurrent falls. History is obtained from the the patient [id number] (Sweta) via phone. According to the [id number] as she stated that the patient has an official diagnosis of Parkinson's disease and was evaluated by 2 different neurologists locally, Dr. Hinds and Dr. Cooper. He follows up with Dr. Cooper for his neurological issues. He stated the patient shuffles when he walks and has tremor of bilateral upper extremities mostly at rest and then that he was on Sinemet [id number], 1 tablet 4 times a day and the patient felt the he was not improving so he stopped taking the medication in 2022 till 2023 difficulty he had a drastic worsening of his tremor, gait and was unsteady. So he was restarted on Sinemet [id number] 1 tablet 3 times a day in 04/16/2023 by his neurologist. According the to the family members he had some speech difficulty but when he was started on Celexa and Depakote his speech improved that. Now they feel of the patient's speech is raspy. It seems that the patient has 5 falls in the last 7 days. He felt total of the 8 falls since March. Usually uses a walker and the he states that the his legs get tangled when he is walking. He shouldn't resides in [facility]. Of note him a patient was seen by my colleague Dr. 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 He stated rule out multiple system atrophy and rule out atypical Parkinson's. Rule out PLS. Per the family members since the patient was seen by my colleague as an outpatient he was seen by 2 different neurologists locally and he was given an official diagnosis of Parkinson's. Patient had a desk and in January 2022 and it's reported as abnormal consistent with diagnosis of either idiopathic Parkinson's disease or PS. Please refer to Dr. Joseph's notes for further details. Patient has history of bilateral carotid and rectum area. He follows up with a building supervisor for his carotid and had a carotid duplex in 04/29/2023. He is going to follow-up with a building supervisor. He also has history of cardiac bypass and he is on Plavix. Of note patient had CT of the brain and cervical spine on 05/05/2023 on prior hospital visit: CT head is reported as there is no acute feature or dislocation evident in the c ervical spine. No acute intracranial hemorrhage or midline shift. TSH is 1.160 Sodium is 136 Calcium is 8.9, magnesium is 2.2 on Review of Systems Review of system is limited with apparent positive and negative aspiration eye. Past Medical History Past Medical History: Atrial Fibrillation, Heart Failure, GERD/Reflux, Hyperlipidemia, Hypertension History of Any Multi-Drug Resistant Organisms: None Reported Past Surgical History: Coronary Bypass/CABG Past Anesthesia/Blood Transfusion Reactions: Unable to Obtain Past Psychological History: No Psychological Hx Reported Smoking Status: Former smoker Past Alcohol Use History: None Reported Past Drug Use History: None Reported - Past Family History Family Family Medical History: Coronary Artery Disease (CAD) Medications and Allergies Home Medications Medication Instructions Recorded Confirmed Type Atorvastatin [Lipitor] 40 mg PO DAILY 10/27/21 05/07/23 History Famotidine [Pepcid] 20 mg PO HS 10/27/21 05/07/23 History Furosemide [Lasix] 40 mg PO DAILY@0800 10/27/21 05/07/23 History Omeprazole 20 mg PO DAILY 10/27/21 05/07/23 History Potassium Chloride ER [K-Dur 20] 20 meq PO DAILY 10/27/21 05/07/23 History Albuterol Inhaler [Ventolin Hfa 2 puff INHALATION RT-Q6H PRN each 10/30/21 05/07/23 Rx Inhaler] Aspirin 81 mg PO DAILY tab 10/30/21 05/07/23 Rx Ibuprofen [Advil] 200 mg PO Q4HR PRN tab 10/30/21 05/07/23 Rx guaiFENesin [Mucinex] 600 mg PO Q12HR tab 10/30/21 05/07/23 Rx Acetaminophen Tab [Tylenol] 650 mg PO Q6H PRN 05/07/23 05/07/23 History Carbidopa-Levodopa 25-100 mg 1 tab PO TID@0800,1300,1800 05/07/23 05/07/23 History [Sinemet 25-100] Cholecalciferol [Vitamin D3 (125 125 mcg PO DAILY 05/07/23 05/07/23 History Mcg = 5000 Iu)] Clopidogrel [Plavix] 75 mg PO DAILY 05/07/23 05/07/23 History Divalproex [Depakote] 250 mg PO BID 05/07/23 05/07/23 History Escitalopram [Lexapro] 10 mg PO DAILY 05/07/23 05/07/23 History Lidocaine 4% Patch 1 patch TOPICAL DAILY PRN 05/07/23 05/07/23 History Metoprolol Succinate (ER) [Toprol 25 mg PO DAILY 05/07/23 05/07/23 History Xl] Mupirocin 2% Oint [Bactroban 2% 1 applic TOPICAL BID 05/07/23 05/07/23 History Oint] Sacubitril/Valsartan [Entresto 24 1 tab PO BID 05/07/23 05/07/23 History mg-26 mg Tablet] hydrALAZINE HCL [Apresoline] 25 mg PO TID 05/07/23 05/07/23 History traMADol HCL 50 mg PO TID 05/07/23 05/07/23 History Allergies Allergy/AdvReac Type Severity Reaction Status Date / Time No Known Allergies Allergy Verified 10/27/21 09:49 Physical Examination - Vital Signs Vital Signs: Vital Signs Temp Pulse Pulse Pulse Resp BP BP 05/08/23 14:40 97.7 F 92 16 97/59 05/08/23 08:00 98 F 78 91 18 05/08/23 01:33 97.5 F L 78 16 05/07/23 21:24 97.8 F 79 18 05/07/23 20:51 72 18 136/84 05/07/23 18:00 71 18 142/76 05/07/23 17:00 65 18 138/84 05/07/23 16:00 68 18 121/71 BP BP BP Pulse Ox 05/08/23 14:40 111/66 110/64 94 L 05/08/23 08:00 131/82 95 05/08/23 01:33 125/72 94 L 05/07/23 21:24 147/83 94 L 05/07/23 20:51 96 05/07/23 18:00 96 05/07/23 17:00 94 L 05/07/23 16:00 91 L Intake and Output 05/08/23 05/08/23 05/08/23 06:59 14:59 22:59 Intake Total 120 Output Total 400 Balance -400 120 Intake: Oral 120 Output: Urine 400 Other: Voiding Method Urinal Incontinent External Catheter GENERAL: The patient is lying in bed and is not in acute distress. NEUROLOGICAL: Higher mental function: The patient is awake, alert, oriented to self, place and time. Mildly slow following commands. Patient is following simple commands. No aphasia and no neglect. Cranial nerves: The pupils are round, equal and reactive to light. Visual parada are full to confrontation throughout. Extraocular movement is intact no nystagmus is noted. Facial sensation is normal to touch throughout. The facial strength is normal throughout. Hearing is moderately decreased bilaterally to hand rub. Tongue is midline and moved [id number] without any difficulty. Has moderate raspy voice. Shoulder shrug is normal bilaterally. Motor: Gait: I have nurse's aid help me get him up and it was two person assist and he was having severe shuffling, taking minimal small steps. The strength is 5 over 5 throughout. Increase mild to moderate tone at wrist. has atrophy at first interosseous bilaterally. Cerebellum: Normal finger to nose bilaterally. Sensation: Sensation is normal to touch throughout. Reflexes (right/left): 2+ ankles 1+. Plantars are upgoing bilaterally. Results - Laboratory Findings CBC and BMP: 05/08/23 05:11 05/07/23 14:41 Abnormal Lab Findings: Abnormal Labs 05/07/23 05/07/23 05/08/23 14:41 14:41 05:11 RBC 3.65 L 3.74 L Hgb 12.4 L 12.4 L Hct 37.0 L 37.5 L MCV 101.2 H 100.3 H MCH 33.2 H Monocytes # 1.06 H Basophils # 0.11 H Sodium 136 L Total Protein 5.9 L Assessment and Plan Assessment: This is an 88-year-old gentleman with history of Parkinson's disease was diagnosed by 2 of his local neurologist, had abnormal Vincent scan and per family members patient was doing well on the Sinemet 4 times a day but patient felt he was not improving so therefore patient himself stopped taking the medication and end of December 2022 and his symptoms were worse in which he had worsening unsteady gait, tremor so he was resumed on Sinemet 3 times a day in 04/16/[address] Cooper. But since the March he had 8 falls because of his unsteady gait and he feels his trip been on himself. In the last 7 days he had 5 falls per family members. Recurrent falls with unsteady gait and raspy: Possibly due to his progressive condition of Parkinsonism disease as well as being on lower of Sinemet (rather QID in past is on TID). I feel possibly patient has multiple system atrophy (MS A) since has bilaterally upgoing toes bilaterally as seen by Dr. Joseph examination on 10/31/2023. I feel unlikely motor neuron disease because of the family stating that his condition improved with Sinemet in past as well voice quality improvement in past. History of Parkinson's disease. History of bilateral carotid and neurectomy History of CABG Plan: I [place] up [place] [id number] 1 tablet 3 times a day to 4 times a day. If within 2 days he is not showing improvement can go up to 1-1/2 tablet 4 times a day vs going up to 1 tab 5 times daily to assess if there is any improvement. I ordered MRI of the brain Vitamin B-12, folate, hemoglobin A1c Fall precaution PT OT are consulted We'll defer the rest of the medical management to the primary team. Consider the patient to follow-up with a movement disorder specialist as a second opinion. Patient follows up with Dr. Cooper as an outpatient. The plan is discussed in length with the patient family members (son, Yosi and [id number], Sweta) via phone. I spent a total about close to 40 minutes on the phone with them. I also stressed the plan with the primary team and nurse. Thank you for the consultation. Time with Patient: Greater than 30
[2023-05-08] MEDS: ACETAMINOPHEN TAB 325 MG TAB PO PRN (20:06)
[2023-05-09 00:24] LABS: BUN/Creat Ratio 16.71 Ratio (12.00-20.00); Blood Urea Nitrogen 11.7 mg/dL (9.0-27.0); Calcium 13.1 mg/dL (8.7-10.3); Chloride 100 mmol/L (96-109); Glucose 78 mg/dL (70-110); Potassium 4.1 mmol/L (3.5-5.5); Sodium 138 mmol/L (135-145)
[2023-05-09] MEDS: HYDROmorphone 0.5 MG/0.5 ML SYRINGE IVP STA (01:51)
[2023-05-09 07:08] LABS: African American GFR (CKD) >90 (>60 ml/min/1.73 sqM); Anion Gap 6 mmol/L; Blood Urea Nitrogen 9 mg/dL (9-20); Calcium 8.9 mg/dL (8.4-10.2); Carbon Dioxide 26 mmol/L (22-30); Chloride 102 mmol/L (98-107); Glucose 88 mg/dL (74-99); Non-African American GFR(CKD) >90 (>60 ml/min/1.73 sqM); Potassium 4.2 mmol/L (3.5-5.1); Sodium 134 mmol/L (137-145)
--- NOTE | 2023-05-09 13:33 | P.PN ---
Subjective Progress Note Date: 05/09/23 Hospital Course: 88-year-old male resident of an independent living facility with a PMH of Parkinson's, diastolic CHF, coronary artery disease, hypertension, and A-fib not on anticoagulation who presents to the emergency room for multiple falls. Patient reports that over the past 1 week, he has experienced 4 falls where he lost his balance, with most recent fall resulting in a posterior scalp laceratio n requiring 5 maria victoria on 05/04. Chest x-ray in the emergency room was unremarkable. Laboratory evaluation was remarkable for hemoglobin 12.4, MCV one 1.2, proBNP 1040, troponin 0.015, TSH 1.160, with respiratory viral panel unremarkable with UA unremarkable. EKG independently interpreted, shows atrial fibrillation, rate controlled. Patient admitted for increased falls, debility. MRI brain pending. Subjective: Patient seen and examined at bedside. Has been slightly more confused overnight. Pertinent positives and negatives as discussed above, a complete review of systems was performed and all other systems are negative. Vitals Signs Reviewed. General: Nontoxic, no distress, appears at stated age Derm: Warm, dry Head: Atraumatic, normocephalic, symmetric Eyes: EOMI, no lid lag, anicteric sclera Mouth: No lip lesion, mucus membranes moist Cardiovascular: S1S2 reg, no murmur Lungs: CTA bilateral, no rhonchi, no rales, no accessory muscle use Abdominal: Soft, nontender to palpation, no guarding, no appreciable organomegaly Ext: No gross muscle atrophy, no edema, no contractures Neuro: CN II-XI grossly intact, no focal neuro deficits Psych: Alert, oriented, appropriate affect Data Reviewed Today: Pertinent Labs: Sodium 134, creatinine 0.57, calcium 8.9 Imaging: No new imaging Assessment and Plan: Active: Acute delirium Frequent falls Debility Generalized weakness History of Parkinson's disease Docusate 100 twice daily, bladder scan did not show any retention Discussed management with neurology, pending MRI brain, sinemet increased yesterday to 4 times daily Continue hydralazine 25 3 times daily, discontinued Lasix as patient is euvolemic Physical therapy evaluation tomorrow Chronic: Hypertension CHF, not in exacerbation CAD Atrial fibrillation GERD DVT ppx: Lovenox Code status: Full code Anticipated discharge place: Pending clinical course Anticipated discharge time: Pending clinical course Patient is progressively delirious, will likely need rehab at the time of discharge. Physical therapy evaluation pending. As needed MRI pending. Observation status changed to inpatient. Objective - Vital Signs Vital signs: Vital Signs Temp 97.5 F L 05/09/23 07:25 Pulse 78 05/09/23 09:05 Resp 16 05/09/23 09:05 BP 129/63 05/09/23 07:25 Pulse Ox 94 L 05/09/23 07:25 FiO2 Intake & Output 05/08/23 05/09/23 05/09/23 18:59 06:59 18:59 Intake Total 360 120 Output Total 300 20 Balance 60 120 -20 Intake: Oral 360 120 Output: Urine 300 Post Void Residual 20 Other: Voiding Method Urinal Urinal Urinal Incontinent Incontinent Incontinent External Catheter External Catheter External Catheter # Voids 2 # Bowel Movements 1 - Labs CBC & Chem 7: 05/08/23 05:11 05/09/23 06:27 Labs: Abnormal Lab Results - Last 24 Hours (Table) 05/08/23 05/09/23 Range/Units 05:11 06:27 Sodium 134 L (137-145) mmol/L Carbon Dioxide 20.0 L (21.6-31.8) mmol/L Anion Gap 18.00 H (4.00-12.00) mmol/L Creatinine 0.57 L (0.66-1.25) mg/dL Calcium 13.1 A* (8.7-10.3) mg/dL
--- NOTE | 2023-05-09 13:38 | P.PN ---
Subjective Progress Note Date: 05/09/23 I am following-up with patient and per his nurse he was restless, agitated and confused. He ripped his line. Objective - Vital Signs Vital signs: Vital Signs Temp 97.5 F L 05/09/23 07:25 Pulse 78 05/09/23 09:05 Resp 16 05/09/23 09:05 BP 129/63 05/09/23 07:25 Pulse Ox 94 L 05/09/23 07:25 FiO2 Intake & Output 05/08/23 05/09/23 05/09/23 18:59 06:59 18:59 Intake Total 360 120 Output Total 300 20 Balance 60 120 -20 Intake: Oral 360 120 Output: Urine 300 Post Void Residual 20 Other: Voiding Method Urinal Urinal Urinal Incontinent Incontinent Incontinent External Catheter External Catheter External Catheter # Voids 2 # Bowel Movements 1 - Exam General: Lying in bed and is not in acute distress. Neuro: Limited. Patient is mild drowsy. He is oriented to self, time. On second try he correctly stated he was in the hospital. He followed few simple commands. Language is limited. Pupils are round, equal and reactive to light. No facial weakness. Has hypophonia. Has raspy voice. Motor: Strength is lifting all extremities above gravity equally. Some of the work-up during this hospital visit consisted of: Vitamin B12: 530 TSH: 1.160 HbA1c 5.5 Valproic acid is 41.5 - Labs CBC & Chem 7: 05/08/23 05:11 05/09/23 06:27 Labs: Abnormal Lab Results - Last 24 Hours (Table) 05/08/23 05/09/23 Range/Units 05:11 06:27 Sodium 134 L (137-145) mmol/L Carbon Dioxide 20.0 L (21.6-31.8) mmol/L Anion Gap 18.00 H (4.00-12.00) mmol/L Creatinine 0.57 L (0.66-1.25) mg/dL Calcium 13.1 A* (8.7-10.3) mg/dL Assessment and Plan Assessment: This is an 88-year-old gentleman with history of Parkinson's disease was diagnosed by 2 of his local neurologist, had abnormal Vincent scan and per family members patient was doing well on the Sinemet 4 times a day but patient felt he was not improving so therefore patient himself stopped taking the medication and end of December 2022 and his symptoms were worse in which he had worsening unsteady gait, tremor so he was resumed on Sinemet 3 times a day in 04/16/[address] Cooper. But since the March he had 8 falls because of his unsteady gait and he feels his trip been on himself. In the last 7 days he had 5 falls per family members. Recurrent falls with unsteady gait and raspy: Possibly due to his progressive condition of Parkinsonism disease as well as being on lower of Sinemet (rather QID in past is on TID). 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 Joseph examination on 10/31/2023. I feel unlikely motor neuron disease because of the family stating that his condition improved with Sinemet in past as well voice quality improvement in past. Delirium is probable hospital induced History of Parkinson's disease. History of bilateral carotid and neurectomy History of CABG Plan: I want up [place] [id number] 1 tablet 3 times a day to 4 times a day on 05/08/2023 in very late afternoon. If within 1 day, he is not showing improvement can go up to 1-1/2 tablet 4 times a day vs going up to 1 tab 5 times daily to assess if there is any improvement. Pending MRI Brain and Cervical spine. Fall precaution PT OT are consulted We'll defer the rest of the medical management to the primary team. Consider the patient to follow-up with a movement disorder specialist as a second opinion. Patient follows up with Dr. Cooper as an outpatient. The plan is discussed in length with [id number] via phone and spoke with primary team. Dr. Joseph will resume neurology service tomorrow A.M. Time with Patient: Less than 30
[2023-05-09] MEDS: DOCUSATE 100 MG CAP PO SCH (20:01)
--- NOTE | 2023-05-10 13:20 | P.PN ---
Subjective Progress Note Date: 05/10/23 Hospital Course: 88-year-old male resident of an independent living facility with a PMH of Parkinson's, diastolic CHF, coronary artery disease, hypertension, and A-fib not on anticoagulation who presents to the emergency room for multiple falls. Patient reports that over the past 1 week, he has experienced 4 falls where he lost his balance, with most recent fall resulting in a posterior scalp laceratio n requiring 5 maria victoria on 05/04. Chest x-ray in the emergency room was unremarkable. Laboratory evaluation was remarkable for hemoglobin 12.4, MCV one 1.2, proBNP 1040, troponin 0.015, TSH 1.160, with respiratory viral panel unremarkable with UA unremarkable. EKG independently interpreted, shows atrial fibrillation, rate controlled. Patient admitted for increased falls, debility. MRI brain/cervical spine pending. Patient will need subacute rehab. Subjective: Patient seen and examined at bedside. Encephalopathy improved. No acute events overnight. Pertinent positives and negatives as discussed above, a complete review of systems was performed and all other systems are negative. Vitals Signs Reviewed. General: Nontoxic, no distress, appears at stated age Derm: Warm, dry Head: Atraumatic, normocephalic, symmetric Eyes: EOMI, no lid lag, anicteric sclera Mouth: No lip lesion, mucus membranes moist Cardiovascular: S1S2 reg, no murmur Lungs: CTA bilateral, no rhonchi, no rales, no accessory muscle use Abdominal: Soft, nontender to palpation, no guarding, no appreciable organome quentin Ext: No gross muscle atrophy, no edema, no contractures Neuro: CN II-XI grossly intact, no focal neuro deficits Psych: Alert, oriented, appropriate affect Data Reviewed Today: Pertinent Labs: No new labs Imaging: No new imaging Assessment and Plan: Active: Acute encephalopathy, likely delirium Frequent falls Debility Generalized weakness History of Parkinson's disease Neurology following, pending MRI brain/cervical spine, sinemet increased to 4 times daily Continue hydralazine 25 3 times daily, discontinued Lasix as patient is euvolemic Physical therapy recommending subacute rehab Chronic: Hypertension CHF, not in exacerbation CAD Atrial fibrillation GERD DVT ppx: Lovenox Code status: Full code Anticipated discharge place: Subacute rehab Anticipated discharge time: Pending clinical course Objective - Vital Signs Vital signs: Vital Signs Temp 98 F 05/10/23 13:05 Pulse 83 05/10/23 13:05 Resp 16 05/10/23 13:05 BP 113/70 05/10/23 13:05 Pulse Ox 95 05/10/23 13:05 FiO2 Intake & Output 05/09/23 05/10/23 05/10/23 18:59 06:59 18:59 Intake Total 118 240 Output Total 770 500 Balance -770 -382 240 Intake: Oral 118 240 Output: Urine 750 500 Post Void Residual 20 Other: Voiding Method Urinal Urinal Urinal Incontinent Incontinent External Catheter External Catheter - Labs CBC & Chem 7: 05/08/23 05:11 05/09/23 06:27
--- NOTE | 2023-05-10 16:25 | MR ---
EXAMINATION TYPE: MR brain/cspine wo DATE OF EXAM: 05/10/2023 1:18 PM CLINICAL INDICATION:Male, 88 years old with history of recurrent falls and dysarthria; PHH, Recurrent falls and dysarthria COMPARISON: 08/07/2022, 10/30/2021. TECHNIQUE: Multi planar, multi sequence imaging was performed through the brain including: T1, T2, Inversion rec overy, Diffusion weighted imaging, and gradient echo imaging. No gadolinium was given. Multi planar, multi sequence imaging was performed utilizing: T1-weighted, T2-weighted, and turbo inv ersion recovery imaging of the cervical spine. IV Contrast: cc no contrast utilized FINDINGS: The guan-white junctions, ventricular system, basal cisterns appear unremarkable. Patchy areas of h igh T2 signal intensity are seen within the periventricular white matter. Midline structures show no abnormality. Diffusion-weighted imaging shows no evidence of restricted diffusion. The susceptibility weighted images demonstrate scattered foci of blooming artifact including the left thalamus right ce rebral hemisphere. The bone marrow signal is within normal limits. Paranasal sinuses and mastoid air cells: No significant paranasal sinus disease. Visualized orbits: Bilateral aphakia Alignment: The cervical vertebral bodies have preserved heights. There is an slight kyphosis of the c ervical spine. Bones: Multilevel disc space narrowing and osteophyte formation with facet and uncovertebral joint ar thropathy. There is ankylosis of the C4 and C5 vertebral bodies. Cord: The spinal cord is unremarkable with regards to their signal intensity and morphology. Spinal c orrelation along the posterior aspect of the vertebral bodies due to increased kyphotic alignment. Discs: Multilevel disc desiccation is present. C2-C3: No significant disc pathology. The spinal canal is patent. Bilateral facet and uncovertebral joint arthropathy are present with mild bilateral neural foraminal stenosis. C3-C4: A disc osteophyte complex is present which minimally narrows the ventral subarachnoid space. Bilateral facet and uncovertebral joint arthropathy are present with mild bilateral neural foraminal stenosis. C4-C5: No significant disc pathology. The spinal canal is patent. Bilateral facet and uncovertebral joint arthropathy are present with mild left neural foraminal stenosis. The right neural foramen is p atent. C5-C6: A disc osteophyte complex is present with mild spinal canal stenosis. Bilateral facet and unc overtebral joint arthropathy are present with moderate left and mild right neural foraminal stenosis. C6-C7: No significant disc pathology. The spinal canal is patent. Bilateral facet and uncovertebral joint arthropathy are present with moderate bilateral neural foraminal stenosis. C7-T1: No significant disc pathology. The spinal canal is patent. No neural foraminal stenosis. Other: None. 1. IMPRESSION: 2. No evidence of intracranial mass or acute/subacute infarct. 3. Nonspecific white matter changes, likely secondary to small vessel ischemic disease. 4. No evidence for disc herniation or significant spinal canal stenosis. 5. Multilevel disc degeneration with associated osteoarthritic changes. No foraminal stenosis worse at C6-C7 with moderate bilateral and C5-6 with moderate left. 6. The spinal canal is patent however increased kyphosis has the spinal cord plane along the posteri or aspect of the vertebral bodies at C4-C6
[2023-05-11 07:50] VITALS: RESP 16
--- NOTE | 2023-05-11 12:24 | P.PN ---
Subjective Progress Note Date: 05/11/23 Hospital course: Patient is a very pleasant 88-year-old male who resides at independent living facility and has a past medical history of Parkinson's disease, CAD, chronic diastolic heart failure, and atrial fibrillation not on anticoagulation. He presented to the emergency department on 05/07/2023 secondary to recurrent falls at home. EKG was completed showing atrial fibrillation with a controlled ventricular rate of 67 bpm. Chest x-ray was negative for acute cardiopulmonary process. Labs were completed and reviewed. CBC showing stable anemia with hemoglobin of 12.4. Coagulation profile, BMP, and liver profile were unremarkable. Troponin was 0.015 and proBNP was 1040. Urinalysis negative for infection. Valproic acid level slightly subtherapeutic at 41.5. Influenza A, influenza B, RSV, and COVID PCR were negative. Patient was admitted under services with consultation to neurology. He underwent MRI of brain and cervical spine without contrast. MRI brain revealed no evidence of intracranial mass or acute/subacute infarct showing nonspecific white matter changes likely secondary to small vessel chronic ischemic disease. MRI cervical spine showing multilevel disc degeneration with associated osteoarthritic changes and moderate foraminal stenosis at C6-C7 and C5-C6., and showing spinal canal is patent however increased kyphosis has a spinal cord plane along the posterior aspect of the vertebral bodies at C4-C6. Physical exam: Patient seen and fully evaluated at the bedside this morning. He was sitting up in the chair and denied having any complaints at this time. Arrangements have been made for patient to return to [facility] with prescription for hospital bed, wheelchair, and bed alarm. Updated patient on plan and he is in full agreement. Called and discussed this with patient's daughter, Sweta. Patient's daughter requesting to hear back from neurology and business case analyst notified neurologist, patient to be discharged back to [facility] once cleared by neurologist. Vital signs reviewed and stable. General: Nontoxic, no distress and appears stated age. Derm: Skin warm and dry, normal coloration for ethnicity. Head: Atraumatic, normocephalic and symmetric. Eyes: EOMs intact, no lid lag, and anicteric sclera Mouth: no lip lesions, mucus membranes moist Cardiovascular: regular rate and rhythm with normal S1S2, no murmur, positive posterior tibial pulses bilaterally, and cap refill < 2 seconds. Lungs: Respirations even, regular, and unlabored on room air. Lungs CTA bilaterally, no rhonchi, no rales, no wheezing, and no accessory muscle usage. Abdominal: soft, nontender to palpation, no guarding, no appreciable organomegaly Ext: ROM intact. No gross muscle atrophy, no edema, no contractures Neuro: Speech clear, face symmetrical and CN II-XII grossly intact with no noted focal neuro deficits Psych: Alert and oriented to person, place, time, and situation. Appropriate and pleasant affect. Assessment and Plan of Care: Acute encephalopathy, likely delirium and improved. Frequent falls Debility Generalized weakness History of Parkinson's disease -Neurology following, increased Sinemet 25-100 mg tablets from 3 times daily up to 4 times daily -MRI brain revealed no evidence of intracranial mass or acute/subacute infarct showing nonspecific white matter changes likely secondary to small vessel chronic ischemic disease. -MRI cervical spine showing multilevel disc degeneration with associated osteoa rthritic changes and moderate foraminal stenosis at C6-C7 and C5-C6., and showing spinal canal is patent however increased kyphosis has a spinal cord plane along the posterior aspect of the vertebral bodies at C4-C6. -Continue hydralazine 25 every 8 hours. Discontinued Lasix as patient is euvolemic -Physical therapy recommending subacute rehab, however arrangements have been made with [facility] for full care Chronic: Hypertension CHF, not in exacerbation CAD Atrial fibrillation GERD -Patient to continue daily medication regimen with aspirin 81 mg daily, atorvastatin 40 mg daily, Plavix 75 mg daily, Depakote 250 mg twice daily, Lexapro 10 mg daily, metoprolol 25 mg daily, and Entresto 24-26 mg tablets twice daily. Data reviewed: Vital signs reviewed and stable. Blood pressure 121/76, heart rate 87, respiratory rate 16, temp 98.3 F, and SpO2 of 92% on room air. DVT ppx: Lovenox Code status: Full code Anticipated discharge place: [facility] with additional assistance including prescription for hospital bed, wheelchair, and bed alarm. Anticipated discharge time: Patient to be discharged once cleared by neurology. Patient was seen independently by Nurse Pracitioner. This document was prepared using [employer] dictation software. Please allow for errors in facilities and grounds director, while rare they do occur. I reviewed the documentation as provided by the LIZETH above, who is the original author of this note. I agree with the documented assessment and plan, with the following changes: none Objective - Vital Signs Vital signs: Vital Signs Temp 98.3 F 05/11/23 07:19 Pulse 87 05/11/23 07:19 Resp 16 05/11/23 07:19 BP 121/76 05/11/23 07:19 Pulse Ox 92 L 05/11/23 07:19 FiO2 Intake & Output 05/10/23 05/11/23 05/11/23 18:59 06:59 18:59 Intake Total 440 Output Total 400 250 Balance 40 -250 Intake: Oral 440 Output: Urine 400 250 Other: Voiding Method Urinal Urinal # Voids 1 # Bowel Movements 1 - Labs CBC & Chem 7: 05/08/23 05:11 05/09/23 06:27
[2023-05-11 13:42] VITALS: BP 133/84; PULSE 79; TEMP 97.5
--- NOTE | 2023-05-11 14:28 | P.DS ---
Providers Date of admission: 05/09/23 13:33 Expected date of discharge: 05/11/23 Attending physician: Roxanna Brock DO Consults: 05/07/23 17:38 Consult Physician Urgent Consulting Provider: Ruben Cintron Consult Reason/Comments: multiple falls, ataxia, hx parkinsons, recent medication changes, dysarthri Do you want consulting provider notified?: Yes Primary care physician: Tobias Darby Hospital Course: Discharge Diagnosis: Acute encephalopathy, likely delirium, improved. Frequent falls and debility. Patient requires a wheelchair to complete ADLs which is unable to be done with a cane or walker because of his advanced Parkinson's disease. Patient has staff available to him at [facility] assisted living [facility] to assist him with wheelchair use. Debility and generalized weakness resulting from advanced Parkinson's disease. History of Parkinson's disease. Carbidopa/levodopa was increased to 25/100 mg tablets 4 times daily. Chronic diastolic congestive heart failure, patient will require the head of bed to be elevated greater than 30 degrees at all times to alleviate orthopnea resulting from his chronic diastolic heart failure and inability to lie flat. Patient to continue cardiac medication regimen with aspirin 81 mg daily, Lasix 40 mg daily, Plavix 75 mg daily, metoprolol 25 mg daily, and Entresto 24/26 mg tablets twice daily. Hypertension. Continue daily medication regimen with metoprolol 25 mg daily and Entresto 24-26 mg tablets twice daily. CAD. Patient to continue cardiac medication regimen with aspirin 81 mg daily, Plavix 75 mg daily, metoprolol 25 mg daily, and Entresto 24/26 mg tablets twice daily. Chronic atrial fibrillation. Not on anticoagulation. Continue metoprolol 25 mg daily. GERD. Continue daily medication regimen with omeprazole 20 mg daily. Hospital Course: Patient is a very pleasant 88-year-old male who resides at independent living facility and has a past medical history of Parkinson's disease, CAD, chronic diastolic heart failure, and atrial fibrillation not on anticoagulation. He presented to the emergency department on 05/07/2023 secondary to recurrent falls at home. EKG was completed showing atrial fibrillation with a controlled ventricular rate of 67 bpm. Chest x-ray was negative for acute cardiopulmonary process. Labs were completed and reviewed. CBC showing stable anemia with hemoglobin of 12.4. Coagulation profile, BMP, and liver profile were unremarkable. Troponin was 0.015 and proBNP was 1040. Urinalysis negative for infection. Valproic acid level slightly subtherapeutic at 41.5. Influenza A, influenza B, RSV, and COVID PCR were negative. Patient was admitted under services with consultation to neurology. He underwent MRI of brain and cervical spine without contrast. MRI brain revealed no evidence of intracranial mass or acute/subacute infarct showing nonspecific white matter changes likely secondary to small vessel chronic ischemic disease. MRI cervical spine showing multilevel disc degeneration with associated osteoarthritic changes and moderate foraminal stenosis at C6-C7 and C5-C6., and showing spinal canal is patent however increased kyphosis has a spinal cord plane along the posterior aspect of the vertebral bodies at C4-C6. Neurology evaluated patient and increased carbidopa/levodopa to 25/100 mg tablets 4 times daily. Per family request, 5 maria victoria to scalp that were placed on previous admission on 05/05/2023, were removed prior to patient's discharge as wound appears fully approximated and healed/scabbed over. Arrangements have been made for patient to return to [facility] with prescription for hospital bed, wheelchair, and bed alarm. Patient cleared by neurology for discharge and is medically stable for discharge home at this time. Recommend patient follow-up with PCP in 1 to 2 days and with neurologist in 2 weeks. Physical exam: Vital signs reviewed and stable. General: Nontoxic, no distress and appears stated age. Derm: Skin warm and dry, normal coloration for ethnicity. Head: Atraumatic, normocephalic and symmetric. Eyes: EOMs intact, no lid lag, and anicteric sclera Mouth: no lip lesions, mucus membranes moist Cardiovascular: Irregularly irregular with normal S1S2, no murmur, positive posterior tibial pulses bilaterally, and cap refill < 2 seconds. Lungs: Respirations even, regular, and unlabored on room air. Lungs CTA bilaterally, no rhonchi, no rales, no wheezing, and no accessory muscle usage. Abdominal: soft, nontender to palpation, no guarding, no appreciable organomegaly Ext: ROM intact. No gross muscle atrophy, no edema, no contractures Neuro: Speech clear, face symmetrical and CN II-XII grossly intact with no noted focal neuro deficits Psych: Alert and oriented to person, place, time, and situation. Appropriate and pleasant affect. A total of 36 minutes of time were spent preparing this complex discharge summary. Pt was discharged on 05/11/2023 at 2:08 PM. Patient was seen independently by Nurse Practitioner. This document was prepared using [employer] dictation software. Please allow for errors in scrap collector while rare they do occur. I reviewed the documentation as provided by the LIZETH above, who is the original author of this note. I agree with the documented assessment and plan, with the following changes: none Patient Condition at Discharge: Stable Plan - Discharge Summary Discharge Rx Participant: No New Discharge Prescriptions: New Carbidopa-Levodopa 25-100 mg [Sinemet 25-100 mg] 1 each PO QID@08,12,16,20 30 Days #120 tab Continue Ibuprofen [Advil] 200 mg PO Q4HR PRN tab PRN Reason: Pain Aspirin 81 mg PO DAILY tab traMADol HCL 50 mg PO TID Cholecalciferol [Vitamin D3 (125 Mcg = 5000 Iu)] 125 mcg PO DAILY Sacubitril/Valsartan [Entresto 24 mg-26 mg Tablet] 1 tab PO BID hydrALAZINE HCL [Apresoline] 25 mg PO TID Potassium Chloride ER [K-Dur 20] 20 meq PO DAILY Omeprazole 20 mg PO DAILY Furosemide [Lasix] 40 mg PO DAILY@0800 Famotidine [Pepcid] 20 mg PO HS Atorvastatin [Lipitor] 40 mg PO DAILY guaiFENesin [Mucinex] 600 mg PO Q12HR tab Albuterol Inhaler [Ventolin Hfa Inhaler] 2 puff INHALATION RT-Q6H PRN each PRN Reason: Shortness Of Breath Or Wheezing Escitalopram [Lexapro] 10 mg PO DAILY Divalproex [Depakote] 250 mg PO BID Clopidogrel [Plavix] 75 mg PO DAILY Acetaminophen Tab [Tylenol] 650 mg PO Q6H PRN PRN Reason: Fever And/ Or Pain Mupirocin 2% Oint [Bactroban 2% Oint] 1 applic TOPICAL BID Metoprolol Succinate (ER) [Toprol XL] 25 mg PO DAILY Lidocaine 4% Patch 1 patch TOPICAL DAILY PRN PRN Reason: Pain Discontinued Carbidopa-Levodopa 25-100 mg [Sinemet 25-100] 1 tab PO TID@0800,1300,1800 Discharge Medication List Atorvastatin [Lipitor] 40 mg PO DAILY 10/27/21 [History] Famotidine [Pepcid] 20 mg PO HS 10/27/21 [History] Furosemide [Lasix] 40 mg PO DAILY@0800 10/27/21 [History] Omeprazole 20 mg PO DAILY 10/27/21 [History] Potassium Chloride ER [K-Dur 20] 20 meq PO DAILY 10/27/21 [History] Albuterol Inhaler [Ventolin Hfa Inhaler] 2 puff INHALATION RT-Q6H PRN each 10/30/21 [Rx] Aspirin 81 mg PO DAILY tab 10/30/21 [Rx] Ibuprofen [Advil] 200 mg PO Q4HR PRN tab 10/30/21 [Rx] guaiFENesin [Mucinex] 600 mg PO Q12HR tab 10/30/21 [Rx] Acetaminophen Tab [Tylenol] 650 mg PO Q6H PRN 05/07/23 [History] Cholecalciferol [Vitamin D3 (125 Mcg = 5000 Iu)] 125 mcg PO DAILY 05/07/23 [History] Clopidogrel [Plavix] 75 mg PO DAILY 05/07/23 [History] Divalproex [Depakote] 250 mg PO BID 05/07/23 [History] Escitalopram [Lexapro] 10 mg PO DAILY 05/07/23 [History] Lidocaine 4% Patch 1 patch TOPICAL DAILY PRN 05/07/23 [History] Metoprolol Succinate (ER) [Toprol XL] 25 mg PO DAILY 05/07/23 [History] Mupirocin 2% Oint [Bactroban 2% Oint] 1 applic TOPICAL BID 05/07/23 [History] Sacubitril/Valsartan [Entresto 24 mg-26 mg Tablet] 1 tab PO BID 05/07/23 [History] hydrALAZINE HCL [Apresoline] 25 mg PO TID 05/07/23 [History] traMADol HCL 50 mg PO TID 05/07/23 [History] Carbidopa-Levodopa 25-100 mg [Sinemet 25-100 mg] 1 each PO QID@08,12,16,20 30 Days #120 tab 05/11/23 [Rx] Follow up Appointment(s)/Referral(s): Henrry Hinds MD [Medical Doctor] - 1 Week Tobias Darby MD [Primary Care Provider] - 1-2 days Patient Instructions/Handouts: Carbidopa/Levodopa (By mouth), Fall Prevention for Older Adults (DC) Activity/Diet/Wound Care/Special Instructions: Activity: As tolerated. Patient requires a wheelchair to complete ADLs which is unable to be done with a cane or walker because of his advanced Parkinson's disease. Patient has staff available to him at [facility] to assist him with wheelchair use. Diet: Heart healthy and carb consistent diet. Avoid salts, or foods with hidden salts such as canned or boxed foods and frozen dinners. Extra salt makes your heart work harder and traps the fluid in your body for longer. Special Instructions: Take all of your medications as directed and remember to keep all of your doctor's appointments and follow-up as needed. Patient will require the head of bed to be elevated greater than 30 degrees at all times to alleviate orthopnea resulting from his chronic diastolic heart failure and inability to lie flat as well as need for frequent repositioning secondary to his advanced Parkinson's disease resulting in debility.. Thank you for allowing us to participate in your care, it was truly a pleasure having you for our patient!!! . Discharge Disposition: TRANSFER TO SNF/ECF
--- NOTE | 2023-05-12 10:31 | P.PN ---
Subjective Progress Note Date: 05/11/23 Patient initially seen by Dr. Ruben Cintron. Please refer to his note for details. 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 He came back because of recurrent falls but it seems he stopped taking Sinemet in the past and was restarted on lower frequency from 4 times daily to [address] Cintron placed him back on 4 times a day. Patient was delirious. However now patient is stable. I spoke to patient's daughter Sweta on the phone. She mentions that patient has previously been seen by Dr. Conde office, but was only seen by physician land surveyor assistant and patient's daughter was not satisfied. She then switched to Dr. Cooper, but again not satisfied yet. Patient did have VINCENT scan performed on 02/03/2022, which was abnormal, consistent with a diagnosis of either idiopathic Parkinson's disease or parkinsonian syndrome. Objective - Vital Signs Vital signs: Vital Signs Temp 98.3 F 05/11/23 07:19 Pulse 87 05/11/23 07:19 Resp 16 05/11/23 07:19 BP 121/76 05/11/23 07:19 Pulse Ox 92 L 05/11/23 07:19 FiO2 Intake & Output 05/10/23 05/11/23 05/11/23 18:59 06:59 18:59 Intake Total 440 120 Output Total 400 250 Balance 40 -250 120 Intake: Oral 440 120 Output: Urine 400 250 Other: Voiding Method Urinal Urinal External Catheter # Voids 1 # Bowel Movements 1 - Exam Patient is alert and awake. He knows it is April and the year is 2023 and that he believes he is in [facility]. Speech and language functions are normal. Patient has very mildly increased tone in the upper limbs. Mild bradykinesia. No tremors at rest. No ataxia for [id number] testing. Muscle strength appears fairly normal. Sensations are equal. - Labs CBC & Chem 7: 05/08/23 05:11 05/09/23 06:27 Assessment and Plan Assessment: This is an 88-year-old gentleman with history of Parkinson's disease was diagnosed by 2 of his local neurologist, had abnormal Vincent scan and per family members patient was doing well on the Sinemet 4 times a day but patient felt he was not improving so therefore patient himself stopped taking the medication in end of December 2022 and his symptoms were worse in which he had worsening unsteady gait, tremor so he was resumed on Sinemet 3 times a day in 04/16/[address] Cooper. But since the March he had 8 falls because of his unsteady gait and he feels his trip been on himself. In the last 7 days he had 5 falls per family members. Recurrent falls with unsteady gait and raspy: Possibly due to his progressive condition of Parkinsonism disease as well as being on lower of Sinemet (rather QID in past is on TID). 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 Delirium is probable hospital induced History of Parkinson's disease. 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 Cintron has increased dose of Sinemet from 01023 1 tablet 3 times a day to 4 times a day on 05/08/2023 in very late afternoon. Patient's neurological examination is stable. No significant parkinsonian symptoms. I do not see need for further increasing the dose of Sinemet at this time. If needed, this can be accomplished by his outside neurologist Dr. Cooper. MRI of the brain and cervical spine revealed no evidence of intracranial mass or acute/subacute infarct. Nonspecific white matter changes, likely secondary to small vessel ischemic disease. No evidence for disc herniation or significant spinal canal stenosis. Multilevel disc degeneration with associated osteoarthritic changes. No foraminal stenosis, worse at C6-C7 with moderate bilateral and C5-6 with moderate left. Spinal canal is patent. However increased kyphosis has a spinal cord pain along the posterior aspect of the vertebral bodies at C4 C6. I personally reviewed MRI agree with the findings. Fall precaution Vitamin B12: 530 TSH: 1.160 HbA1c 5.5 Valproic acid is 41.5 PT OT are consulted We'll defer the rest of the medical management to the primary team. Neurologically clear for discharge. Patient follows up with Dr. Cooper as an outpatient.
== END 2023-05-11 19:33 | disposition home or self-care (01) | DRG 71 ==
LOC: EC 13:42 → 5NMEDONC 17:38 → OBSVTOIN 05-09 13:33
PROVIDERS: ADMIT Internal Medicine; ATTEND Internal Medicine
DX: G93.40 Encephalopathy, unspecified (principal); I48.20 Chronic atrial fibrillation, unspecified; I50.32 Chronic diastolic (congestive) heart failure; R29.6 Repeated falls; Z91.81 History of falling; G20.A1 Parkinson's disease without dyskinesia, without mention of fluctuations; Z79.891 Long term (current) use of opiate analgesic; D53.9 Nutritional anemia, unspecified; I11.0 Hypertensive heart disease with heart failure; I25.10 Atherosclerotic heart disease of native coronary artery without angina pectoris; I95.1 Orthostatic hypotension; Z11.52 Encounter for screening for COVID-19; K21.9 Gastro-esophageal reflux disease without esophagitis; M40.209 Unspecified kyphosis, site unspecified; M48.02 Spinal stenosis, cervical region; R47.1 Dysarthria and anarthria; R26.81 Unsteadiness on feet; R53.81 Other malaise; R13.10 Dysphagia, unspecified; S01.01XD Laceration without foreign body of scalp, subsequent encounter; W01.0XXD Fall on same level from slipping, tripping and stumbling without subsequent striking against object, subsequent encounter; Z79.02 Long term (current) use of antithrombotics/antiplatelets; Z79.82 Long term (current) use of aspirin; Z79.899 Other long term (current) drug therapy; Z82.49 Family history of ischemic heart disease and other diseases of the circulatory system; Z95.1 Presence of aortocoronary bypass graft
CPT/HCPCS: 36415; 70551; 71046; 72141; 80048; 80053; 80164; 81003; 82607; 82747; 83036; 83605; 83735; 83880; 84443; 84484; 85025; 85045; 85610; 85730; 87636; 93005; 99285

== ENCOUNTER → 2023-08-03 | Outpatient (CLI) | payer MEDICARE, BC ==
--- NOTE | 2023-08-03 11:05 | US ---
EXAMINATION TYPE: US arterial LE single level DATE OF EXAM: 08/03/2023 10:31 AM CLINICAL INDICATION: Male, 88 years old with history of I73.9 PERIPHERAL VASCULAR DISEASE, UNSPECIFIE D; BL LE Pitting edema History of: Smoker: Yes Hypertension: Yes Diabetic: No Hyperlipidemia: No TIA/CVA: No Previous Vascular Surgery: Triple bypass CAD: Yes NE: No Vascular Ulcers: No Claudication: No Gangrene: No Doppler Waveforms: Right: Biphasic, monophasic waveform in the digit Left: Biphasic, monophasic waveform in the digit Right Brachial Pressure: 171 Left Brachial Pressure: 165 Ankle-Brachial Indices: Right: 1.26 Left: 1.19 (Vessel hardening > 1.4; Normal 0.9 - 1.4, Moderate 0.7 - 0.9, Severe 0.5-0.7) Toe Brachial Indices: Right: 0.77 Left: 0.76 IMPRESSION: Normal ankle-brachial indices bilaterally.
== END | disposition home or self-care (01) ==
LOC: RADUSWWP 09:54
PROVIDERS: ATTEND Internal Medicine Cardiovascular Disease
DX: I73.9 Peripheral vascular disease, unspecified (principal); I10 Essential (primary) hypertension; I25.10 Atherosclerotic heart disease of native coronary artery without angina pectoris; R60.0 Localized edema; R25.2 Cramp and spasm
CPT/HCPCS: 93922

== ENCOUNTER 2023-08-17 23:03 | Inpatient (IN) | payer MEDICARE, BC ==
[2023-08-17 23:14] VITALS: TEMP 98.1
--- NOTE | 2023-08-17 23:31 | ED ---
Fall HPI - General Chief Complaint: Extremity Injury, Lower Stated Complaint: Fall w/ groin pain Time Seen by Provider: 08/17/23 23:17 Source: patient, EMS, RN notes reviewed, old records reviewed Mode of arrival: EMS Limitations: no limitations - History of Present Illness Initial Comments: This is an 88-year-old male with a fall. Patient had a fall with significant groin pain left hip pain back pain. Pain began after the fall. At that time patient was also complaining of some left-sided chest wall pain with history of recent pneumonia. Patient has no other complaints, did not hit his head no head or neck pain no headache nausea vomiting. Patient is alert and oriented GCS 15, patient is found to be hypoxic MD Complaint: fall -: hour(s) Fall From: standing When Fall Occurred: 1 hour STUDENT RECRUITER Fall Witnessed: yes, by living facility staff Place Fall Occurred: home Loss of Consciousness: none Prolonged Down Time?: no Symptoms Prior to Fall: none Location: chest, back, pelvis Location - Extremities: Left: Thigh Severity: severe Severity scale (1-10): 7 Quality: stabbing Context: tripped/slipped Associated Symptoms: denies - Related Data Home Medications Medication Instructions Recorded Confirmed Atorvastatin [Lipitor] 40 mg PO DAILY 10/27/21 05/07/23 Famotidine [Pepcid] 20 mg PO HS 10/27/21 05/07/23 Furosemide [Lasix] 40 mg PO DAILY@0800 10/27/21 05/07/23 Omeprazole 20 mg PO DAILY 10/27/21 05/07/23 Potassium Chloride ER [K-Dur 20] 20 meq PO DAILY 10/27/21 05/07/23 Acetaminophen Tab [Tylenol] 650 mg PO Q6H PRN 05/07/23 05/07/23 Cholecalciferol [Vitamin D3 (125 125 mcg PO DAILY 05/07/23 05/07/23 Mcg = 5000 Iu)] Clopidogrel [Plavix] 75 mg PO DAILY 05/07/23 05/07/23 Divalproex [Depakote] 250 mg PO BID 05/07/23 05/07/23 Escitalopram [Lexapro] 10 mg PO DAILY 05/07/23 05/07/23 Lidocaine 4% Patch 1 patch TOPICAL DAILY PRN 05/07/23 05/07/23 Metoprolol Succinate (ER) [Toprol 25 mg PO DAILY 05/07/23 05/07/23 XL] Mupirocin 2% Oint [Bactroban 2% 1 applic TOPICAL BID 05/07/23 05/07/23 Oint] Sacubitril/Valsartan [Entresto 24 1 tab PO BID 05/07/23 05/07/23 mg-26 mg Tablet] hydrALAZINE HCL [Apresoline] 25 mg PO TID 05/07/23 05/07/23 traMADol HCL 50 mg PO TID 05/07/23 05/07/23 Previous Rx's Medication Instructions Recorded Albuterol Inhaler [Ventolin Hfa 2 puff INHALATION RT-Q6H PRN each 10/30/21 Inhaler] Aspirin 81 mg PO DAILY tab 10/30/21 Ibuprofen [Advil] 200 mg PO Q4HR PRN tab 10/30/21 guaiFENesin [Mucinex] 600 mg PO Q12HR tab 10/30/21 Carbidopa-Levodopa 25-100 mg 1 each PO QID@08,12,16,20 30 Days 05/11/23 [Sinemet 25-100 mg] #120 tab Allergies Allergy/AdvReac Type Severity Reaction Status Date / Time No Known Allergies Allergy Verified 10/27/21 09:49 Review of Systems ROS Statement: Those systems with pertinent positive or pertinent negative responses have been documented in the HPI. ROS Other: All systems not noted in ROS Statement are negative. Past Medical History Past Medical History: Atrial Fibrillation, Heart Failure, GERD/Reflux, Hyperlipidemia, Hypertension History of Any Multi-Drug Resistant Organisms: None Reported Past Surgical History: Coronary Bypass/CABG Past Anesthesia/Blood Transfusion Reactions: Unable to Obtain Past Psychological History: No Psychological Hx Reported Smoking Status: Former smoker Past Alcohol Use History: None Reported Past Drug Use History: None Reported - Past Family History Family Family Medical History: Coronary Artery Disease (CAD) General Exam Limitations: no limitations General appearance: alert, in no apparent distress Head exam: Present: atraumatic, normocephalic, normal inspection Eye exam: Present: normal appearance, PERRL, EOMI. Absent: scleral icterus, conjunctival injection, periorbital swelling ENT exam: Present: normal exam, mucous membranes moist Neck exam: Present: normal inspection. Absent: tenderness, meningismus, lymphadenopathy Respiratory exam: Present: normal lung sounds bilaterally. Absent: respiratory distress, wheezes, rales, rhonchi, stridor Cardiovascular Exam: Present: regular rate, normal rhythm, normal heart sounds. Absent: systolic murmur, diastolic murmur, rubs, gallop, clicks GI/Abdominal exam: Present: soft, normal bowel sounds. Absent: distended, tenderness, guarding, rebound, rigid Extremities exam: Present: normal inspection, full ROM, normal capillary refill. Absent: tenderness, pedal edema, joint swelling, calf tenderness Back exam: Present: normal inspection Neurological exam: Present: alert, oriented X3, CN II-XII intact Psychiatric exam: Present: normal affect, normal mood Skin exam: Present: warm, dry, intact, normal color. Absent: rash Course Vital Signs 08/17/23 08/18/23 08/18/23 23:06 00:39 00:41 Temperature 98.1 F Pulse Rate 88 77 81 Respiratory 16 17 Rate Blood Pressure 131/81 108/63 O2 Sat by Pulse 90 L 91 L Oximetry 08/18/23 08/18/23 08/18/23 00:53 01:10 03:03 Temperature Pulse Rate 75 83 76 Respiratory 15 16 Rate Blood Pressure 102/68 85/51 O2 Sat by Pulse 98 95 Oximetry 08/18/23 08/18/23 04:16 04:59 Temperature Pulse Rate 73 87 Respiratory 18 18 Rate Blood Pressure 86/58 110/80 O2 Sat by Pulse 95 95 Oximetry - Reevaluation(s) Reevaluation #1: 08/18/23 01:52 Medical records reviewed Reevaluation #2: 08/18/23 01:52 Patient's oxygen is improved with supplemental O2 Reevaluation #3: 08/18/23 01:52 Patient informed of results questions answered Reevaluation #4: Was pt. sent in by a medical professional or institution (, PA, RECTIFYING ATTENDANT, urgent care, hospital, or intermediate...) When possible be specific @ -no Did you speak to anyone other than the patient for history (EMS, parent, family, police, friend...)? What history was obtained from this source @ -no Did you review nursing and triage notes (agree or disagree)? Why? @ -agree Are old charts reviewed (outside hosp., previous admission, EMS record, old EKG, old radiological studies, urgent care reports/EKG's, intermediate records)? Report findings @ -yes Differential Diagnosis (chest pain, altered mental status, abdominal pain women, abdominal pain men, vaginal bleeding, weakness, fever, dyspnea, syncope, headache, dizziness, GI bleed, back pain, seizure, CVA, palpatations, mental health, musculoskeletal)? @ -prior EKG interpreted by me (3pts min.). @ -yes X-rays interpreted by me (1pt min.). @ -yes yes positive pneumonia positive acetabular fracture CT interpreted by me (1pt min.). @ -Yes positive acetabular fracture U/S interpreted by me (1pt. min.). @ -no What testing was considered but not performed or refused? (CT, X-rays, U/S, labs)? Why? @ -none What meds were considered but not given or refused? Why? @ -none Did you discuss the management of the patient with other professionals (professionals i.e. , PA, RECTIFYING ATTENDANT, lab, RT, psych nurse, social media assistant, blade boner, teacher, field artillery officer, family independence case manager)? Give summary @ -no Was smoking cessation discussed for >3mins.? @ -no Was critical care preformed (if so, how long)? @ -yes31 Were there social determinants of health that impacted care today? How? (Homelessness, low income, unemployed, alcoholism, drug addiction, transportation, low edu. Level, literacy, decrease access to med. care, long-term, rehab)? @ -none Was there de-escalation of care discussed even if they declined (Discuss DNR or withdrawal of care, Hospice)? DNR status @ -no What co-morbidities impacted this encounter? (DM, HTN, Smoking, COPD, CAD, Cancer, CVA, ARF, Chemo, Hep., AIDS, mental health diagnosis, sleep apnea, morbid obesity)? @ -none Was patient admitted / discharged? Hospital course, mention meds given and route, prescriptions, significant lab abnormalities, going to OR and other pertinent info. @ - 88 male will be admitted for weakness falls hypoxia pneumonia and severe left groin pain hip pain and does have left acetabular fracture here in the ER with COPD, pulm pneumonia complicated with hypoxia. Patient is on antibiotics and will transfer for consultation regarding management of this left acetabular fracture Transferred for inpatient admission Undiagnosed new problem with uncertain prognosis? @ -no Drug Therapy requiring intensive monitoring for toxicity (Heparin, Nitro, Insulin, Cardizem)? @ -no Were any procedures done? @ -no Diagnosis/symptom? @ -Hypoxia with pneumonia, fall, hip pain with acetabular fracture Acute, or Chronic, or Acute on Chronic? @ -Acute Uncomplicated (without systemic symptoms) or Complicated (systemic symptoms)? @ -Complicated Side effects of treatment? @ -no Exacerbation, Progression, or Severe Exacerbation? @ -exacerbation Poses a threat to life or bodily function? How? (Chest pain, [place], CO, pneumonia, PE, COPD, DKA, ARF, appy, cholecystitis, CVA, Diverticulitis, Homicidal, Suicidal, threat to staff... and all critical care pts) @ -yes extremes of age Reevaluation #5: Differential Weakness: Hypoglycemia, shock, sepsis, hyponatremia, anemia, infection, CO, ETOH, adverse medicine reaction, overdose, stroke, this is not meant to be an all-inclusive list. - Consultations Consultation #1: spoke with on-call orthopedics who will accept this patient to transfer to outside facility Consultation #2: Spoke with [facility] agreed transfer Medical Decision Making - Medical Decision Making 88 male will be admitted for weakness falls hypoxia pneumonia and severe left groin pain hip pain and does have left acetabular fracture here in the ER with COPD, pulm pneumonia complicated with hypoxia. Patient is on antibiotics and will transfer for consultation regarding management of this left acetabular fracture - Lab Data Result diagrams: 08/18/23 00:23 08/18/23 00:23 Lab Results 08/18/23 08/18/23 08/18/23 Range/Units 00:23 00:23 00:23 WBC 11.3 H (3.8-10.6) k/uL RBC 4.27 L (4.30-5.90) m/uL Hgb 13.2 (13.0-17.5) gm/dL Hct 42.8 (39.0-53.0) % MCV 100.2 H (80.0-100.0) fL MCH 30.9 (25.0-35.0) pg MCHC 30.8 L (31.0-37.0) g/dL RDW 13.6 (11.5-15.5) % Plt Count 210 (150-450) k/uL MPV 7.7 Neutrophils % 71 % Lymphocytes % 19 % Monocytes % 7 % Eosinophils % 2 % Basophils % 1 % Neutrophils # 8.0 H (1.3-7.7) k/uL Lymphocytes # 2.1 (1.0-4.8) k/uL Monocytes # 0.8 (0-1.0) k/uL Eosinophils # 0.2 (0-0.7) k/uL Basophils # 0.1 (0-0.2) k/uL PT 11.8 (10.0-12.5) sec INR 1.1 (<1.2) APTT 27.8 (22.0-30.0) sec Sodium 136 L (137-145) mmol/L Potassium 4.8 (3.5-5.1) mmol/L Chloride 102 (98-107) mmol/L Carbon Dioxide 24 (22-30) mmol/L Anion Gap 10 mmol/L BUN 14 (9-20) mg/dL Creatinine 0.68 (0.66-1.25) mg/dL Est GFR (CKD-EPI)AfAm >90 (>60 ml/min/1.73 sqM) Est GFR (CKD-EPI)NonAf 85 (>60 ml/min/1.73 sqM) Glucose 96 (74-99) mg/dL Lactic Ac Sepsis Rflx Plasma Lactic Acid Matty (0.7-2.0) mmol/L Calcium 9.6 (8.4-10.2) mg/dL Phosphorus 4.3 (2.5-4.5) mg/dL Magnesium 2.1 (1.6-2.3) mg/dL Total Bilirubin 0.8 (0.2-1.3) mg/dL AST 24 (17-59) U/L ALT 7 (4-49) U/L Alkaline Phosphatase 88 (38-126) U/L Troponin I (0.000-0.034) ng/mL NT-Pro-B Natriuret Pep 756 pg/mL Total Protein 6.1 L (6.3-8.2) g/dL Albumin 4.1 (3.5-5.0) g/dL 08/18/23 08/18/23 08/18/23 Range/Units 00:23 00:23 01:31 WBC (3.8-10.6) k/uL RBC (4.30-5.90) m/uL Hgb (13.0-17.5) gm/dL Hct (39.0-53.0) % MCV (80.0-100.0) fL MCH (25.0-35.0) pg MCHC (31.0-37.0) g/dL RDW (11.5-15.5) % Plt Count (150-450) k/uL MPV Neutrophils % % Lymphocytes % % Monocytes % % Eosinophils % % Basophils % % Neutrophils # (1.3-7.7) k/uL Lymphocytes # (1.0-4.8) k/uL Monocytes # (0-1.0) k/uL Eosinophils # (0-0.7) k/uL Basophils # (0-0.2) k/uL PT (10.0-12.5) sec INR (<1.2) APTT (22.0-30.0) sec Sodium (137-145) mmol/L Potassium (3.5-5.1) mmol/L Chloride (98-107) mmol/L Carbon Dioxide (22-30) mmol/L Anion Gap mmol/L BUN (9-20) mg/dL Creatinine (0.66-1.25) mg/dL Est GFR (CKD-EPI)AfAm (>60 ml/min/1.73 sqM) Est GFR (CKD-EPI)NonAf (>60 ml/min/1.73 sqM) Glucose (74-99) mg/dL Lactic Ac Sepsis Rflx Y Plasma Lactic Acid Matty 2.1 H* (0.7-2.0) mmol/L Calcium (8.4-10.2) mg/dL Phosphorus (2.5-4.5) mg/dL Magnesium (1.6-2.3) mg/dL Total Bilirubin (0.2-1.3) mg/dL AST (17-59) U/L ALT (4-49) U/L Alkaline Phosphatase (38-126) U/L Troponin I <0.012 (0.000-0.034) ng/mL NT-Pro-B Natriuret Pep pg/mL Total Protein (6.3-8.2) g/dL Albumin (3.5-5.0) g/dL - EKG Data -: EKG Interpreted by Me (EKG is A-fib 83 QRS 84 QTc 433) - Radiology Data Radiology results: report reviewed (X-ray chest shows pneumonia x-ray left hip and pelvis negative for traumatic injury, CT of the abdomen pelvis does show acetabular fracture left hip), image reviewed Critical Care Time Critical Care Time: Yes Total Critical Care Time: 31 Disposition Clinical Impression: Hypoxia, Pneumonia, Fall, Left hip pain, Left acetabular fracture Disposition: TRANSFER TO PSYCH HOSP/UNIT Condition: Fair Is patient prescribed a controlled substance at d/c from ED?: No Time of Disposition: 02:00 - Out of Hospital Transfer - Req. Specs Out of Hospital Transfer - Requested Specifics: Other [facility] ([facility])
--- NOTE | 2023-08-18 00:04 | XR ---
EXAMINATION TYPE: XR chest 1V DATE OF EXAM: 08/17/2023 COMPARISON: Chest CT one day earlier HISTORY: Fall TECHNIQUE: Single frontal view of the chest is obtained. FINDINGS: Overlying sternal wires and left atrial appendage clip are redemonstrated. Low lung volume s with central vascular congestion on current study. Increasing bibasilar opacities. The cardiac jessica houette size is upper limits of normal. The osseous structures are intact. IMPRESSION: Poor inspiration with new central vascular congestion and bibasilar opacities could refl ect atelectasis and/or developing acute infiltrates.
--- NOTE | 2023-08-18 00:05 | XR ---
EXAMINATION TYPE: XR Hip LT and AP Pelvis DATE OF EXAM: 08/17/2023 COMPARISON: NONE HISTORY: Fall with pain TECHNIQUE: A single AP view of the pelvis is obtained. Two views of the left hip are obtained. FINDINGS: There is no acute fracture/dislocation evident in the pelvis. Moderate narrowing of both h ip joints. Symmetric moderate narrowing of both sacroiliac joints. Pubic symphysis is intact. Two views of left hip show no acute fracture or dislocation. No focal lytic or sclerotic lesion seen in the proximal left femur. The overlying soft tissue is unremarkable. IMPRESSION: There is no acute fracture or dislocation in the pelvis or left hip.
[2023-08-18] MEDS: MORPHINE SULFATE 4 MG/ML SYRINGE IV STA (00:16)
[2023-08-18] MEDS: SODIUM CHLORIDE 0.9% 1,000 ML IV STA (00:18)
[2023-08-18 00:37] LABS: Basophils # (A) 0.1 k/uL (0-0.2); Basophils % (A) 1 %; Eosinophils # (A) 0.2 k/uL (0-0.7); Eosinophils % (A) 2 %; HCT 42.8 % (39.0-53.0); HGB 13.2 gm/dL (13.0-17.5); Lymphocytes # (A) 2.1 k/uL (1.0-4.8); Lymphocytes % (A) 19 %; MCH 30.9 pg (25.0-35.0); MCHC 30.8 g/dL (31.0-37.0); MCV 100.2 fL (80.0-100.0); Mean Platelet Volume 7.7; Monocytes # (A) 0.8 k/uL (0-1.0); Monocytes % (A) 7 %; Neutrophils % (A) 71 %; Platelet Count 210 k/uL (150-450); RBC 4.27 m/uL (4.30-5.90); RDW 13.6 % (11.5-15.5); WBC 11.3 k/uL (3.8-10.6)
[2023-08-18] MEDS: IPRATROPIUM-ALBUTEROL 3 ML NEB INHALATION STA (00:38)
[2023-08-18 00:53] LABS: ALT 7 U/L (4-49); AST 24 U/L (17-59); African American GFR (CKD) >90 (>60 ml/min/1.73 sqM); Albumin 4.1 g/dL (3.5-5.0); Alkaline Phosphatase 88 U/L (38-126); Anion Gap 10 mmol/L; Blood Urea Nitrogen 14 mg/dL (9-20); Calcium 9.6 mg/dL (8.4-10.2); Carbon Dioxide 24 mmol/L (22-30); Chloride 102 mmol/L (98-107); Glucose 96 mg/dL (74-99); INR 1.1 (<1.2); Magnesium 2.1 mg/dL (1.6-2.3); Non-African American GFR(CKD) 85 (>60 ml/min/1.73 sqM); Partial Thromboplastin Time 27.8 sec (22.0-30.0); Phosphorus 4.3 mg/dL (2.5-4.5); Potassium 4.8 mmol/L (3.5-5.1); Prothrombin Time 11.8 sec (10.0-12.5); Sodium 136 mmol/L (137-145); Total Bilirubin 0.8 mg/dL (0.2-1.3); Total Protein 6.1 g/dL (6.3-8.2)
[2023-08-18 01:01] LABS: NT-Pro-B-Type Natriuretic Pept 756 pg/mL
[2023-08-18] MEDS ORDERED: PNEUMONIA PROTOCOL UTILIZED 1 EACH MISC PO PRN (01:49)
[2023-08-18] MEDS ORDERED: IPRATROPIUM-ALBUTEROL 3 ML NEB INHALATION PRN (01:49)
[2023-08-18] MEDS: SODIUM CHLORIDE 0.9% 1,000 ML IV SCH (02:51)
[2023-08-18] MEDS: HYDROmorphone 0.5 MG/0.5 ML SYRINGE IVP STA (03:00)
[2023-08-18] MEDS: PIPERACILLIN-TAZOBACTAM 3.375 GM in SODIUM CHLORIDE 0.9% 100 ML IVPB STA (03:01)
--- NOTE | 2023-08-18 03:52 | CT ---
EXAM: CT Pelvis Without Intravenous Contrast CLINICAL HISTORY: ITS.REASON CT Reason: pain TECHNIQUE: Axial computed tomography images of the pelvis without intravenous contrast. CTDI is 10.1 mGy and DLP is 364.5 mGy-cm. This CT exam was performed using one or more of the following dose reduction techniques: automated exposure control, adjustment of the mA and/or kV according to patient size, and/or use of iterative reconstruction technique. COMPARISON: None. FINDINGS: Image quality degraded by motion artifact. Bones/joints: Osteopenia. Demonstrates mildly displaced comminuted fractures of the anterior column of the left acetabulum (anterior wall of acetabulum, superior pubic ramus, pelvic brim and the anterior aspects of the iliac wing). Moderately advanced degenerative disc/endplate spondylitic changes seen from L2-S1 levels. Hypertrophic facet osteoarthropathy with a grade 1 L5 spondylolisthesis. Mild/moderate bilateral hip osteoarthrosis. Extensive calcified atherosclerosis of the aortoiliac vasculature and all branch vessels. Mild/moderate prostatomegaly. A moderately distended urinary bladder. Moderately large volume stool is seen in the visualized colon. . IMPRESSION: Osteopenia. Demonstrates mildly displaced comminuted fractures of the anterior column of the left acetabulum as described above. .
[2023-08-18] MEDS: AZITHROMYCIN 500 MG in SODIUM CHLORIDE 0.9% 250 ML IVPB STA (04:13)
[2023-08-18 04:20] VITALS: RESP 18
[2023-08-18] MEDS ORDERED: SODIUM CHLORIDE 0.9% 1,000 ML IV ONE (04:29)
[2023-08-18 05:06] VITALS: BP 110/80; PULSE 87
[2023-08-18] MEDS ORDERED: PIPERACILLIN-TAZOBACTAM 3.375 GM in SODIUM CHLORIDE 0.9% 100 ML IVPB SCH (08:00)
[2023-08-18] MEDS ORDERED: AZITHROMYCIN 500 MG in SODIUM CHLORIDE 0.9% 250 ML IVPB SCH (21:00)
== END 2023-08-18 06:23 | disposition short-term general hospital (02) | DRG 535 ==
LOC: EC 23:03 → 5NMEDONC 08-18 01:51
PROVIDERS: ADMIT Internal Medicine; ATTEND Internal Medicine
DX: S32.432A Displaced fracture of anterior column [iliopubic] of left acetabulum, initial encounter for closed fracture (principal); J18.9 Pneumonia, unspecified organism; J44.0 Chronic obstructive pulmonary disease with (acute) lower respiratory infection; I11.0 Hypertensive heart disease with heart failure; I50.9 Heart failure, unspecified; I48.91 Unspecified atrial fibrillation; M85.88 Other specified disorders of bone density and structure, other site; R09.02 Hypoxemia; K21.9 Gastro-esophageal reflux disease without esophagitis; E78.5 Hyperlipidemia, unspecified; Z79.02 Long term (current) use of antithrombotics/antiplatelets; Z79.82 Long term (current) use of aspirin; Z79.52 Long term (current) use of systemic steroids; Z79.899 Other long term (current) drug therapy; W18.30XA Fall on same level, unspecified, initial encounter; Z95.1 Presence of aortocoronary bypass graft; Z87.891 Personal history of nicotine dependence; Z87.01 Personal history of pneumonia (recurrent)
CPT/HCPCS: 36415; 71045; 72192; 73502; 80053; 83605; 83735; 83880; 84100; 84484; 85025; 85610; 85730; 87040; 87636; 93005; 94640; 96361; 96365; 96366; 96367; 96375; 99291

== ENCOUNTER → 2023-08-17 | Outpatient (CLI) | payer MEDICARE, BC ==
--- NOTE | 2023-08-17 11:15 | CT ---
EXAMINATION TYPE: CT chest wo con DATE OF EXAM: 08/17/2023 COMPARISON: None HISTORY: dyspnea CT DLP: 275.[address] of the chest was performed with lung and mediastinal window settings submitted. The la ck of contrast limits evaluation of the vascular, mediastinal and parenchymal structures including th e upper abdomen. LUNGS: The lungs are clear and free of infiltrate. No atelectasis. No pulmonary nodule or mass is de tected. Small right-sided pleural effusion noted. There appears to be mild elevation right hemidiaphr agm with right basilar atelectatic change. No CT evidence of interstitial lung disease. MEDIASTINUM/ESTHER: Aneurysmal dilatation ascending thoracic aorta 4.4 cm. The heart is enlarged. Medi an sternotomy changes. No evidence for mediastinal mass. No lymph nodes greater than 1cm. UPPER ABDOMEN: No significant abnormality is seen. OTHER: No significant other abnormality. IMPRESSION: 1. Small right sided effusion with mild compressive atelectasis. Mild Elevation right hemidiaphragm. 2. Ascending thoracic aortic aneurysm.
== END | disposition home or self-care (01) ==
LOC: RADCTMAIN 10:43
PROVIDERS: ATTEND Internal Medicine
DX: I71.21 Aneurysm of the ascending aorta, without rupture (principal); J90 Pleural effusion, not elsewhere classified; I51.7 Cardiomegaly; J43.9 Emphysema, unspecified; Z87.891 Personal history of nicotine dependence; R09.89 Other specified symptoms and signs involving the circulatory and respiratory systems
CPT/HCPCS: 71250